=== PATIENT | female | born 1940 | race Caucasian/White ===

== ENCOUNTER → 2017-07-12 11:11 | Outpatient (CLI) | payer MEDICARE, SELFPAY ==
[2017-07-12 12:48] LABS: Anion Gap 10 (5-15); BUN 22 mg/dL (7-18); BUN/Creat Ratio 23.3 RATIO (10-20); Calcium,Total 8.6 mg/dL (8.5-10.1); Chloride 107 mmol/L (98-107); Cholesterol 217 mg/dL (200); Creatinine, Serum 0.95 mg/dL (0.55-1.02); EST Glomerular Filtration Rate 61 mL/min (>60); Est Glom Filt Rate - Afr Amer 74 mL/min (>60); Free T3 2.5 pg/mL (2.18-3.98); Glucose 98 mg/dL (74-106); High Density Lipoprotein 40 mg/dL; Potassium 4.3 mmol/L (3.5-5.1); Sodium Level 141 mmol/L (136-145); T4 Total, Thyroxin 9.8 ug/dL (4.8-13.9); Thyroid Stim Hormone (TSH) 0.33 uIU/mL (0.358-3.74); Triglycerides 151 mg/dL; Very Low Density Lipoprotein 30 mg/dL (5-40)
== END ==
PROVIDERS: Family Provider Family Medicine; PCP Family Medicine; Visit Provider Family Medicine
DX: I10 Essential (primary) hypertension (principal); E03.9 Hypothyroidism, unspecified
CPT/HCPCS: 36415; 80048; 80061; 84436; 84443; 84481

== ENCOUNTER → 2017-07-18 11:46 | Outpatient (CLI) | payer MEDICARE, SELFPAY ==
--- NOTE | 2017-07-18 11:53 | RAD_ITS ---
XR Abdomen W/ Decub and/or Erect Views INDICATION: abd pain COMPARISON: None TECHNIQUE: Supine and upright views of the abdomen FINDINGS: There is mixed with fecal material is seen throughout the colon and rectum. No significantly distended air-filled small bowel loops is seen to suggest obstruction. No air-fluid levels on the upright view. Lung bases are clear. RAD/Abd Inc Decub and/or Erect IMPRESSION: Nonobstructive bowel gas pattern at 2120 Reported and signed by: Shannon Lai MD Electronically Signed: Shannon Lai MD at 20:19 EST Tel , Service support ,
== END ==
PROVIDERS: Family Provider Family Medicine; PCP Family Medicine; Visit Provider Family Medicine
DX: R10.9 Unspecified abdominal pain (principal)
CPT/HCPCS: 74019

== ENCOUNTER → 2017-08-28 08:07 | Outpatient (CLI) | payer MEDICARE, SELFPAY ==
--- NOTE | 2017-08-28 08:10 | RAD_ITS ---
STUDY: X-RAY - ESOPHAGUS (BARIUM SWALLOW) WITH FLUOROSCOPY REASON FOR EXAM: Female, 76 years old. Dysphagia for solids. TECHNIQUE: 21 view(s) of the esophagus were obtained following swallowing of barium. FLUOROSCOPY TIME (if supplied): (0:20) minutes/seconds COMPARISON: None. FINDINGS: There is no demonstrated esophageal foreign body. There is no demonstrated stricture or mucosal abnormality. Normal gastroesophageal junction, without a demonstrated hiatal hernia. The patient ingest a 12 mm tablet of barium without any difficulty. Normal visualized aortic arch and descending thoracic aorta. Normal visualized pulmonary parenchyma. Normal visualized osseous structures of the thorax. RAD/Esophagus Only IMPRESSION: Normal plain film x-ray examination (barium swallow) of the esophagus. Electronically Signed: Minh May MD at 10:24 EDT Tel [phone], Service support ,
== END ==
PROVIDERS: Family Provider Family Medicine; PCP Family Medicine; Visit Provider Internal Medicine Gastroenterology
DX: R13.10 Dysphagia, unspecified (principal)
CPT/HCPCS: 74220

== ENCOUNTER → 2018-01-10 10:28 | Outpatient (CLI) | payer MEDICARE, SELFPAY ==
[2018-01-10 12:30] LABS: Anion Gap 9 (5-15); BUN 23 mg/dL (7-18); BUN/Creat Ratio 19.5 RATIO (10-20); Calcium,Total 8.6 mg/dL (8.5-10.1); Chloride 108 mmol/L (98-107); Cholesterol 178 mg/dL (200); Creatinine, Serum 1.18 mg/dL (0.55-1.02); EST Glomerular Filtration Rate 47 mL/min (>60); Est Glom Filt Rate - Afr Amer 57 mL/min (>60); Glucose 91 mg/dL (74-106); High Density Lipoprotein 33 mg/dL; Potassium 4.5 mmol/L (3.5-5.1); Sodium Level 140 mmol/L (136-145); Thyroid Stim Hormone (TSH) 1.46 uIU/mL (0.358-3.74); Triglycerides 182 mg/dL; Very Low Density Lipoprotein 36 mg/dL (5-40)
== END ==
PROVIDERS: Family Provider Family Medicine; PCP Family Medicine; Visit Provider Family Medicine
DX: I10 Essential (primary) hypertension (principal); E03.9 Hypothyroidism, unspecified
CPT/HCPCS: 36415; 80048; 80061; 84443

== ENCOUNTER → 2018-02-18 06:20 | Outpatient (CLI) | payer MEDICARE, SELFPAY ==
--- NOTE | 2018-02-18 12:24 | STRESSREP ---
Stress Test Report Exercise myocardial perfusion stress test. 77 year old lady with a history of chest pain. Medications losartan Coumadin Zantac. Stress protocol: Resting EKG demonstrates normal sinus rhythm with a rate of 88 bpm normal intervals and noted resting blood pressure is 148/82 mmHg. The patient exercised according to regular Mario protocol for total duration of 3 minutes and 29 seconds the maximum heart rate attained was 157 bpm which was 110% of maximum predicted heart rate the maximum workload was 5.1 metabolic equivalents. The patient maintained sinus rhythm throughout the recording. At rest there were no ST or T-wave changes noted suggest ischemia at peak exercise upsloping ST changes only were noted with no meet the criteria for ischemia. The resting blood pressure is 148/82 with a peak blood pressure 184/84. No clinical angina was noted the test was terminated due to shortness of breath. Myocardial perfusion protocol. 11.0 mCi of technetium 99m sestamibi was injected at rest. The patient exercised for 3-1/2 minutes attaining 5.1 minutes. At peak exercise 33.0 mCi of technetium 99m sestamibi was injected stress images were obtained stress and rest images were reconstructed and compared in the short axis vertical long horizontal long axis. Gated images were also obtained pre- Perfusion SPECT analysis: Review of the stress images demonstrate normal uptake of tracer noted in all areas of the myocardium. The resting images similarly demonstrate normal uptake of tracer noted in all areas of the myocardium. No obvious areas of reversibility are noted suggest ischemia and no previous infarct is noted. Gated SPECT analysis: The gated ejection fraction is noted to be 69%. No wall motion abnormalities are noted. Conclusion: Normal exercise myocardial perfusion stress test at a low to moderate workload. Preserved ejection fraction The low exercise capacity can affect detection of ischemia.
== END ==
PROVIDERS: Family Provider Family Medicine; PCP Family Medicine; Visit Provider Family Medicine
DX: R06.02 Shortness of breath (principal)
CPT/HCPCS: 78452; 93017; A9500; A4216

== ENCOUNTER → 2018-03-28 12:22 | Outpatient (CLI) | payer MEDICARE, SELFPAY ==
[2018-03-28 14:19] LABS: Prothrombin Time (Protime)PT. 22.3 SECONDS (11.7-14.9)
[2018-03-28 14:24] LABS: Hematocrit 24.8 % (37-47); Hemoglobin 6.7 g/dl (12.0-15.0); Mean Corpuscular Volume 63.1 fL (81-99); Mean Platelet Vol. 9.3 fl (6.2-12.0); Platelet Count 417 K/mm3 (150-450); RBC Distribution Width CV 21.2 % (11.6-14.6); RBC Distribution Width SD 47.4 fl (35.1-43.9); Red Blood Count 3.93 M/mm3 (4.2-5.4); White Blood Count 5.9 K/mm3 (4.4-11.0)
[2018-03-28 14:26] LABS: Anion Gap 6 (5-15); BUN 28 mg/dL (7-18); Calcium,Total 8.4 mg/dL (8.5-10.1); Chloride 107 mmol/L (98-107); Creatinine, Serum 1.12 mg/dL (0.55-1.02); EST Glomerular Filtration Rate 50 mL/min (>60); Est Glom Filt Rate - Afr Amer 61 mL/min (>60); Glucose 115 mg/dL (74-106); Potassium 4.4 mmol/L (3.5-5.1); Sodium Level 138 mmol/L (136-145)
[2018-03-28 14:37] LABS: Differential Comment SCANNED; Scan Indicated on CBC? Y/N YES- FLAGS NOTED
== END ==
PROVIDERS: Family Provider Family Medicine; PCP Family Medicine; Visit Provider Family Medicine
DX: R53.83 Other fatigue (principal)
CPT/HCPCS: 36415; 80048; 85027; 85610

== ENCOUNTER 2018-03-28 16:35 | Observation (INO) | payer MEDICARE, SELFPAY ==
[2018-03-28 16:36] VITALS: BP 165/93; PULSE 97; RESP 14; TEMP 36.6; O2SAT 98; BMI 28.5
--- NOTE | 2018-03-28 16:52 | EKG12_ITS ---
Test Reason : ABN LABS Blood Pressure : / mmHG Vent. Rate : 087 BPM Atrial Rate : 087 BPM P-R Int : 160 ms QRS Dur : 070 ms QT Int : 386 ms P-R-T Axes : 050 024 036 degrees QTc Int : 464 ms Normal sinus rhythm Low voltage QRS Borderline ECG Confirmed by HUGH BOSWELL, GALILEA ([id number]), editor news RADHA GARCIA ([id number]) on 04/01/2018 3:55:55 PM Referred By: MANAN Confirmed By:GALILEA REESE MD
[2018-03-28 17:13] LABS: Hematocrit 24.5 % (37-47)
[2018-03-28 17:15] LABS: Hemoglobin 6.7 g/dl (12.0-15.0)
[2018-03-28 17:43] LABS: Ferritin 3 ng/mL (8-252); Iron 22 ug/dL (50-170); Iron Binding Capacity,Total 509 ug/dL (250-450)
[2018-03-28 17:49] LABS: Vitamin B12 201 pg/mL (211-911)
--- NOTE | 2018-03-28 18:01 | HP.PCM_ITS ---
Problem List (1) Iron deficiency anemia Status: Chronic (2) SOB (shortness of breath) Status: Acute (3) GERD (gastroesophageal reflux disease) Status: Chronic (4) Hypothyroidism Status: Chronic (5) DVT (deep venous thrombosis) Status: Chronic (6) IBS (irritable bowel syndrome) Status: Chronic History of Present Illness Date of Admission: 03/28/18 Chief Complaint: SOB/STEIN The patient is a 77 year old F with a PMH as above presenting with SOB and STEIN worsening since the end of summer. Per her and the family, she is usually getting 10,000 steps a day, but these last few weeks, she is getting winded just by making the bed. She saw her PCP and he ordered a stress test which was normal, but she had a low to moderate work-load which could skew results. She followed-up with her PCP again and a CBC demonstrated an anemia of 6.7 and iron deficiency. She was sent to the ER for admission and transfusion. In the Er she was typ and crossed for tranfusion of 2 UPRBC. Her Fecal occult in the ER was positive and she state that she has had episodes of darks stool in the past. She had a colonoscopy 5 years ago which she had one polypectomy and an EGD a year ago to evaluate her Barretts. Past Medical History Past Medical History (Chronic Problems): Chronic Problems Iron deficiency anemia (Chronic) GERD (gastroesophageal reflux disease) (Chronic) Hypothyroidism (Chronic) DVT (deep venous thrombosis) (Chronic) IBS (irritable bowel syndrome) (Chronic) Allergies No Known Allergies Allergy (Verified 03/28/18 16:40) Home Medications: Ambulatory Orders Medication Instructions Recorded Acetaminophen [Mapap] 500 mg PO PRN PRN 03/28/18 Dicyclomine HCl 20 mg PO TID PRN PRN 03/28/18 Ferrous Sulfate 325 mg PO TID 03/28/18 Lansoprazole 30 mg PO DAILY 03/28/18 Levothyroxine Sodium 75 mcg PO DAILY 03/28/18 Lorazepam [Ativan] 1 mg PO BID 03/28/18 Losartan Potassium 50 mg PO DAILY 03/28/18 Prednisone 40 mg PO DAILY 03/28/18 Ranitidine HCl 75 mg PO DAILY 03/28/18 Warfarin Sodium 2 mg PO DAILY 03/28/18 Surgical History: hysterectomy, - - EGD, ganglion cyst removal, basal cell exci valerie Smoking Status: Never smoker Alcohol: None Drugs: None - *Family History Maternal History Items: Diabetes, Heart Disease, Hypertension Paternal History Items: Heart Disease, Hypertension Review of Systems Constitutional: Denies: Chills, Fever, Weight Change HEENT: Denies: Head Aches, Sinus Congestion, Sinus Drainage Cardiovascular: Denies: Chest Pain, Palpitations Respiratory: Reports: Shortness of breath at rest, Shortness of breath upon exertion. Denies: Cough, Sputum production Gastrointestinal: Denies: Abdominal Pain, Nausea, Vomiting Genitourinary: Denies: Dysuria Musculoskeletal: Denies: Joint Pain, Joint Tenderness Skin: Denies: Rash, Wounds Neurological: Denies: Numbness, Tingling, Focal weakness Psychiatric: Denies: Anxiety, Depression Hematologic/ Lymphatic: Denies: Easy Bruising, Easy Bleeding VTE Information - Inpt Only VTE Present on Admission: No Patient Problems: Active and Suspected Problems SOB (shortness of breath) (Acute) - Physical Exam General: Alert, Oriented x3, Cooperative, No apparent distress HEENT: Atraumatic, PERRLA, EOMI, Normocephalic Oral: Moist Mucosa Neck: Supple, No JVD Lungs: Clear to auscultation, Normal air movement, No rhonchi, No wheeze, No rales Cardiovascular: Regular rate, Regular Rhythm, Normal S1, Normal S2, No murmurs Abdomen: Soft, Non Tender, Non-Distended, No Hepato-splenomegaly Extremities: No edema, Capillary Refill Less than 3 Seconds Skin: No rashes, No breakdown Musculoskeletal: No Tenderness to Palpation of Joints or Extremities Neurological: Neuro grossly intact, Sensory exam intact to light touch and pain Psych/Mental Status: Normal Affect, Appropriate Vital Signs Temp Pulse Resp BP Pulse Ox 97.8 F 97 14 165/93 H 98 03/28/18 16:36 03/28/18 16:36 03/28/18 16:36 03/28/18 16:36 03/28/18 16:36 Oxygen Delivery Method Room Air Weight: 155 lb 13.869 oz Body Mass Index (BMI) 28.5 Laboratory Tests Past 24 Hrs 03/28/18 03/28/18 03/28/18 17:05 17:05 17:05 Hgb 6.7 L Hct 24.5 L Iron 22 L TIBC 509 H Ferritin 3 L Vitamin B12 201 L Folate 15.50 Assessment/Plan All Active Problems SOB (shortness of breath) (Acute) 1. Iron deficiency anemia/B12 deficiency/Positive fecal occult - Will trasnfuse 2 U PRBCs for an H/H 6.7, there is no baseline in the system - C/w home iron therapy, will add vitamin C to her regimen because of her PPI - Her B12 is also low, so will add replacement for that as well, will proceed with oral since she is asymptomatic - CBC in the am for better characterization of her anemia - C/s to General surgery for EGD 2. GERD - Stable, h/o gastritis on her EGD - C/w PPI IV BID 3. Hypothyroidism - stable per her report - c/w synthroid 4. H/o DVT - She had a DVT in 1990 and was told that she needed to remain on coumadin the rest of her life - Will DC coumadin and will not restart unless she and her PCP decide to - She states that she has never had a DVT after that first one and no one in her family has a clotting disorder - It is very reasonable to to hold her anticoagulation and not resume unless she has a recurrent DVT 5. IBS predominantly diarrhea - c/w bentyl which seems to provide her with some control DVT: SCDs Code Visit OBSV E&M: 29741 Initial observation care L3
[2018-03-28 18:13] VITALS: BMI 28.5
[2018-03-28 18:36] VITALS: BMI 28.4
[2018-03-28 18:38] VITALS: BP 142/59; PULSE 91; RESP 16; TEMP 36.7; O2SAT 98
--- NOTE | 2018-03-28 18:59 | ED.VISSUMM ---
- ER Visit Summary Date of Service: 03/28/18 Chief Complaint: Abnormal labs History of Present Illness: The patient is a 77 F who states that she went to her doctor today and was found to have a hemoglobin of 6.7. She states that earlier this year in the summer she began to experience shortness of breath. Her family states that she had been doing 10,000 steps measured on a fit bit but now his shortness of breath even with making a bed. She had a stress test a few days ago. She lasted 3-1/2 minutes but otherwise was negative. He does not wear oxygen. She has a history of gastritis and up until 3 days ago was on a PPI but stopped that because she read a combined iron. Her MCV on blood work is 63.1. BUN is 28 creatinine 1.12. She has not had any black or bloody stools. She denies any tarry stools. Endoscopy 1 year ago Physical Examination: Afebrile vital signs stable Gen: Well-nourished well-developed Head: Normocephalic atraumatic Eyes: Perrl EOMI ENT: TMs clear no rhinorrhea moist mucous membranes Neck: Supple no lymphadenopathy no JVD nontender CVS: Regular rate rhythm no murmurs normal S1-S2 Respiratory: No distress clear to auscultation bilaterally chest nontender Abdomen: Soft nontender nondistended normal bowel sounds no masses Rectal: Light brown stool Back: Nontender Extremity: Nontender no edema Skin: Normal color no rash Neuro: alert orientated ?3 CN II-XII intact normal strength sensation reflexes gait cerebellar Psych: Normal affect normal mood Test Results: Iron studies were added. EKG is a sinus rhythm at a rate of 87. Stool on Hemoccult was positive Emergency Department Course and Treatment: Plan is for admission and transfusion. Impression: 1. Anemia requiring transfusion 2. Iron deficiency This note was generated with [employer] dictation software. It may contain incorrect words, spelling, and punctuation that were not noted in review of the chart prior to signing ED Disposition - Plan for ED Patient: Disposition: Acute Care Hospital [facility] Chief Complaint: Abn Labs
[2018-03-28] MEDS: Ferrous Sulfate 325 MG Tablet PO (21:25)
[2018-03-28] MEDS: LORazepam 1 MG Tablet PO (21:25)
[2018-03-28] MEDS: 0.9% NaCl Peripheral Flush Adult/Peds IV (21:27)
[2018-03-28 22:38] VITALS: BP 137/60; PULSE 96; RESP 18; TEMP 36.8; O2SAT 96
[2018-03-28 22:53] VITALS: BP 130/39; PULSE 86; RESP 16; TEMP 36.8; O2SAT 97
[2018-03-28 23:53] VITALS: BP 141/77; PULSE 97; RESP 18; TEMP 36.7; O2SAT 98
[2018-03-28 23:58] VITALS: BP 141/77; PULSE 97; RESP 18; TEMP 36.7; O2SAT 98
[2018-03-29] VITALS (12 sets, daily range): BP systolic 124–154; BP diastolic 53–71; PULSE 76–98; RESP 16–20; TEMP 36.6–36.9; O2SAT 95–99
[2018-03-29] MEDS: Levothyroxine 75 MCG Tablet PO (06:33)
[2018-03-29] MEDS: 0.9% NaCl Peripheral Flush Adult/Peds IV ×2 (06:33→09:09)
--- NOTE | 2018-03-29 08:31 | PCM.PN.HOSP ---
Patient Problems: Active and Suspected Problems Acute blood loss anemia (Acute) Heme positive stool (Acute) Subjective: No new complaints. Has not really exerted herself, but no shortness of breath. Never had any melena, hematochezia. Vitals/I&O's: Vital Signs Temp Pulse Resp BP Pulse Ox 36.9 C 79 16 132/53 H 97 03/29/18 05:08 03/29/18 05:08 03/29/18 05:08 03/29/18 05:08 03/29/18 06:49 Oxygen Flow Rate (L/min) 2 Oxygen Delivery Method Nasal Cannula Weight: 68.2 kg Body Mass Index (BMI) 28.4 Intake and Output for Last 24 Hours 03/27/18 03/28/18 03/29/18 23:59 23:59 23:59 Intake Total 150 / 150 1050 / 1050 Output Total 100 / 100 800 / 800 Balance 50 / 50 250 / 250 General: Alert, No apparent distress HEENT: Atraumatic, Normocephalic Oral: Moist Mucosa, No Gingival or Mucosal Lesions/ Ulcerations Neck: No Nodes, Thyroid Normal Size and Texture Lungs: Clear to auscultation, No rhonchi, No wheeze Cardiovascular: Regular rate, Regular Rhythm, Normal S1, Normal S2 Abdomen: Bowel Sounds Present, Soft, Non Tender, Non-Distended, No Hepato-splenomegaly Extremities: No edema, No Calf Tenderness Skin: No rashes, No breakdown Psych/Mental Status: Normal Affect, Appropriate Microbiology Past 72 Hours 03/28/18 17:32 Stool Stool Occult Blood (LYNDSAY) - Final Occult Blood Positive Laboratory Results 03/28/18 17:05: Vitamin B12 201 L 03/28/18 17:05: Iron 22 L, TIBC 509 H, Ferritin 3 L, Folate 15.50 03/28/18 17:05: Hgb 6.7 L, Hct 24.5 L 03/28/18 19:28: Blood Type A NEGATIVE, Antibody Screen NEGATIVE, Crossmatch See Detail 03/29/18 08:10: WBC Pending, RBC Pending, Hgb Pending, Hct Pending, MCV Pending, MCH Pending, MCHC Pending, RDW Pending, RDW Differential Pending, Plt Count Pending, Neut % (Auto) Pending, Absolute Neuts (auto) Pending, Total Counted Pending 03/29/18 08:10: PT Pending, INR Pending 03/29/18 08:10: Sodium Pending, Potassium Pending, Chloride Pending, Carbon Dioxide Pending, Anion Gap Pending, BUN Pending, Creatinine Pending, Est GFR (MDRD) Af Amer Pending, Est GFR (MDRD) Non-Af Pending, BUN/Creatinine Ratio Pending, Glucose Pending, Calcium Pending Current Medications Acetaminophen (Tylenol) 500 mg PO Q4H PRN PRN PRN Reason: PAIN Ascorbic [facility] ([facility]itamin [facility]) [facility] Cyanocobalamin (Vitamin B12) 1,000 mcg PO DAILY@0800 [facility] Dicyclomine HCl (Bentyl) 20 mg PO TID PRN PRN PRN Reason: Irritable Bowel Syndrome Famotidine (Pepcid) 10 mg PO DAILY [facility] Ferrous Sulfate (Ferrous Sulfate) 325 mg PO TIDCM [facility] Last Admin: 03/28/18 21:25 Dose: 325 mg Pantoprazole Sodium 40 mg/ (Sodium Chloride) 110 mls @ 330 mls/hr IV Q12 [facility] Last Admin: 03/28/18 21:25 Dose: 330 mls/hr Influenza Virus Vaccine Quadrival (Fluarix/Fluzone) 0.5 ml IM .ONCE ONE Stop: 03/29/18 10:01 Levothyroxine Sodium (Synthroid) 75 mcg PO DAILY@0600 [facility] Last Admin: 03/29/18 06:33 Dose: 75 mcg Lorazepam (Ativan) 1 mg PO BID [facility] Last Admin: 03/28/18 21:25 Dose: 1 mg Losartan Potassium (Cozaar) 50 mg PO DAILY [facility] Magnesium Hydroxide (Milk Of Magnesia) 30 ml PO DAILY PRN PRN PRN Reason: Constipation Sodium Chloride () 5 - 30 ml IV UD PRN PRN Reason: SALINE FLUSH Last Admin: 03/29/18 06:33 Dose: 10 ml Medical Necessity - Tobacco Use Smoking Status: Never smoker Tobacco Use: Cigarettes Assessment/Plan All Active Problems Acute blood loss anemia (Acute) Heme positive stool (Acute) 1. symptomatic anemia/acute blood loss anemia unknown baseline, but given accelerating symptoms, likely due to gradual blood loss s/p transfusion of 2 units PRBCs (follow up CBC pending) 2. Heme positive stools patient denies melena, hematochezia presumably the anemia is due to GI source complicated by coumadin DW Dr. Rowan, pt can follow up in their office next week for follow up and endoscopy. (patient ate today, so no endoscopy, nor non-urgent endoscopy over the weekend.) suspect a gradual process 3. VTE per patient's description, she had an extensive, unprovoked DVT in RLE with PE. No Phlegmasia culen dolens, nor life threatening PE. Apparently, had a hypercoagulable work up later that showed Factor V Leiden mutation. Coumadin on hold given above, and would continue to hold for at least another 2 weeks. Recommend follow up with hematology to review (pt states she never did see a supervisor dyer) 4. DVT proph: SCDs. Greater than 35 minutes of which greater than 50% of the time was discussing the patient's anemia and potential etiology and plan. Discussing with general surgery as well about an outpatient plan. Code Visit Inpatient E&M: 25234 Subs Hosp L3
--- NOTE | 2018-03-29 08:35 | PN_ITS ---
Patient Problems: Active and Suspected Problems Acute blood loss anemia (Acute) Heme positive stool (Acute) Subjective: No new complaints. Has not really exerted herself, but no shortness of breath. Never had any melena, hematochezia. Vitals/I&O's: Vital Signs Temp Pulse Resp BP Pulse Ox 36.9 C 79 16 132/53 H 97 03/29/18 05:08 03/29/18 05:08 03/29/18 05:08 03/29/18 05:08 03/29/18 06:49 Oxygen Flow Rate (L/min) 2 Oxygen Delivery Method Nasal Cannula Weight: 68.2 kg Body Mass Index (BMI) 28.4 Intake and Output for Last 24 Hours 03/27/18 03/28/18 03/29/18 23:59 23:59 23:59 Intake Total 150 / 150 1050 / 1050 Output Total 100 / 100 800 / 800 Balance 50 / 50 250 / 250 General: Alert, No apparent distress HEENT: Atraumatic, Normocephalic Oral: Moist Mucosa, No Gingival or Mucosal Lesions/ Ulcerations Neck: No Nodes, Thyroid Normal Size and Texture Lungs: Clear to auscultation, No rhonchi, No wheeze Cardiovascular: Regular rate, Regular Rhythm, Normal S1, Normal S2 Abdomen: Bowel Sounds Present, Soft, Non Tender, Non-Distended, No Hepato- splenomegaly Extremities: No edema, No Calf Tenderness Skin: No rashes, No breakdown Psych/Mental Status: Normal Affect, Appropriate Microbiology Past 72 Hours 03/28/18 17:32 Stool Stool Occult Blood (LYNDSAY) - Final Occult Blood Positive Laboratory Results 03/28/18 17:05: Vitamin B12 201 L 03/28/18 17:05: Iron 22 L, TIBC 509 H, Ferritin 3 L, Folate 15.50 03/28/18 17:05: Hgb 6.7 L, Hct 24.5 L 03/28/18 19:28: Blood Type A NEGATIVE, Antibody Screen NEGATIVE, Crossmatch See Detail 03/29/18 08:10: WBC Pending, RBC Pending, Hgb Pending, Hct Pending, MCV Pending, MCH Pending, MCHC Pending, RDW Pending, RDW Differential Pending, Plt Count Pending, Neut % (Auto) Pending, Absolute Neuts (auto) Pending, Total Counted Pending 03/29/18 08:10: PT Pending, INR Pending 03/29/18 08:10: Sodium Pending, Potassium Pending, Chloride Pending, Carbon Dioxide Pending, Anion Gap Pending, BUN Pending, Creatinine Pending, Est GFR (MDRD) Af Amer Pending, Est GFR (MDRD) Non-Af Pending, BUN/Creatinine Ratio Pending, Glucose Pending, Calcium Pending Current Medications Acetaminophen (Tylenol) 500 mg PO Q4H PRN PRN PRN Reason: PAIN Ascorbic [facility] ([facility]itamin [facility]) [facility] Cyanocobalamin (Vitamin B12) 1,000 mcg PO DAILY@0800 [facility] Dicyclomine HCl (Bentyl) 20 mg PO TID PRN PRN PRN Reason: Irritable Bowel Syndrome Famotidine (Pepcid) 10 mg PO DAILY [facility] Ferrous Sulfate (Ferrous Sulfate) 325 mg PO TIDCM [facility] Last Admin: 03/28/18 21:25 Dose: 325 mg Pantoprazole Sodium 40 mg/ (Sodium Chloride) 110 mls @ 330 mls/hr IV Q12 [facility] Last Admin: 03/28/18 21:25 Dose: 330 mls/hr Influenza Virus Vaccine Quadrival (Fluarix/Fluzone) 0.5 ml IM .ONCE ONE Stop: 03/29/18 10:01 Levothyroxine Sodium (Synthroid) 75 mcg PO DAILY@0600 [facility] Last Admin: 03/29/18 06:33 Dose: 75 mcg Lorazepam (Ativan) 1 mg PO BID [facility] Last Admin: 03/28/18 21:25 Dose: 1 mg Losartan Potassium (Cozaar) 50 mg PO DAILY [facility] Magnesium Hydroxide (Milk Of Magnesia) 30 ml PO DAILY PRN PRN PRN Reason: Constipation Sodium Chloride () 5 - 30 ml IV UD PRN PRN Reason: SALINE FLUSH Last Admin: 03/29/18 06:33 Dose: 10 ml Medical Necessity - Tobacco Use Smoking Status: Never smoker Tobacco Use: Cigarettes Assessment/Plan All Active Problems Acute blood loss anemia (Acute) Heme positive stool (Acute) 1. symptomatic anemia/acute blood loss anemia * unknown baseline, but given accelerating symptoms, likely due to gradual blood loss * s/p transfusion of 2 units PRBCs (follow up CBC pending) 2. Heme positive stools * patient denies melena, hematochezia * presumably the anemia is due to GI source complicated by coumadin * DW Dr. Rowan, pt can follow up in their office next week for follow up and endoscopy. (patient ate today, so no endoscopy, nor non-urgent endoscopy over the weekend.) * suspect a gradual process 3. VTE * per patient's description, she had an extensive, unprovoked DVT in RLE with PE. No Phlegmasia culen dolens, nor life threatening PE. Apparently, had a hypercoagulable work up later that showed Factor V Leiden mutation. * Coumadin on hold given above, and would continue to hold for at least another 2 weeks. * Recommend follow up with hematology to review (pt states she never did see a lead manufacturing engineering tech) 4. DVT proph: SCDs. Greater than 35 minutes of which greater than 50% of the time was discussing the patient's anemia and potential etiology and plan. Discussing with general surgery as well about an outpatient plan. Code Visit Inpatient E&M: 36366 Subs Hosp L3
[2018-03-29 08:39] LABS: International Normalized Ratio 1.7; Prothrombin Time (Protime)PT. 19.7 SECONDS (11.7-14.9)
[2018-03-29 08:45] LABS: Anion Gap 9 (5-15); BUN 19 mg/dL (7-18); BUN/Creat Ratio 17.3 RATIO (10-20); Calcium,Total 8.2 mg/dL (8.5-10.1); Chloride 110 mmol/L (98-107); EST Glomerular Filtration Rate 51 mL/min (>60); Est Glom Filt Rate - Afr Amer 62 mL/min (>60); Estimated Creatinine Clearance 31.81 ml/min; Glucose 131 mg/dL (74-106); Sodium Level 141 mmol/L (136-145)
[2018-03-29 08:48] LABS: Absolute Lymphocyte Count 1.39 X10^3/ul (0.83-4.51); Absolute Neutrophil Count 4.2 X10^3/uL (2.0-7.7); Basophil# 0.03 X10^3/uL; Basophil% 0.5 % (0-1); Eosinophil# 0.09 X10^3/uL; Eosinophils% 1.4 % (0-5); Hematocrit 31.5 % (37-47); Hemoglobin 9.4 g/dl (12.0-15.0); Lymphocyte # 1.39 X10^3/ul (4.0); Lymphocyte % 22.3 % (19-41); Mean Corp Hgb Conc 29.8 g/gl (32-36); Mean Corpuscular Hgb 20.4 pg (27.0-32.0); Mean Corpuscular Volume 68.3 fL (81-99); Mean Platelet Vol. 9.1 fl (6.2-12.0); Monocyte# 0.53 X10^3/uL; Monocyte% 8.5 % (0-10); Neutrophil # 4.17 X10^3/uL (2.7-7.7); Neutrophil % 66.8 % (47-70); Platelet Count 327 K/mm3 (150-450); RBC Distribution Width CV 25.3 % (11.6-14.6); RBC Distribution Width SD 61.5 fl (35.1-43.9); Red Blood Count 4.61 M/mm3 (4.2-5.4); White Blood Count 6.2 K/mm3 (4.4-11.0)
[2018-03-29 08:50] LABS: Differential Indicated SCAN CRITERIA MET; POSITIVE COUNT NO; POSITIVE DIFFERENTIAL NO; POSITIVE MORPHOLOGY YES
[2018-03-29] MEDS: LORazepam 1 MG Tablet PO (08:59)
[2018-03-29] MEDS: Ascorbic Acid 500 MG Tablet PO (08:59)
[2018-03-29] MEDS: Cyanocobalamin 500 MCG Tablet 1000 MCG PO (08:59)
[2018-03-29] MEDS: Famotidine 20 MG Tablet 10 MG PO (09:00)
[2018-03-29] MEDS: Losartan Potassium 50 MG Tablet PO (09:00)
[2018-03-29] MEDS: Ferrous Sulfate 325 MG Tablet PO (12:34)
--- NOTE | 2018-03-29 13:25 | CASEMGMT ---
RN CM Assessment. Intro role of CM to patient and her niece. Pt presented with anemia and iron deficiency. Transfusion during hospital stay. Demographics verified. PCP: Dr. Austin [facility] Prescription coverage: yes DME: none Living Arrangements: Lives independently, denies any dc concerns. States she drives and is able to f/u with physicians. DC PLAN: Home on discharge.
[2018-03-29 14:44] LABS: Absolute Lymphocyte Count 1.27 X10^3/ul (0.83-4.51); Absolute Neutrophil Count 4.1 X10^3/uL (2.0-7.7); Basophil# 0.02 X10^3/uL; Basophil% 0.3 % (0-1); Eosinophil# 0.07 X10^3/uL; Eosinophils% 1.1 % (0-5); Hematocrit 32.1 % (37-47); Hemoglobin 9.3 g/dl (12.0-15.0); Lymphocyte # 1.27 X10^3/ul (4.0); Lymphocyte % 20.7 % (19-41); Mean Corpuscular Hgb 20.2 pg (27.0-32.0); Mean Corpuscular Volume 69.6 fL (81-99); Mean Platelet Vol. 8.4 fl (6.2-12.0); Monocyte# 0.63 X10^3/uL; Monocyte% 10.3 % (0-10); Neutrophil # 4.13 X10^3/uL (2.7-7.7); Neutrophil % 67.3 % (47-70); Platelet Count 290 K/mm3 (150-450); RBC Distribution Width CV 24.7 % (11.6-14.6); RBC Distribution Width SD 62.6 fl (35.1-43.9); Red Blood Count 4.61 M/mm3 (4.2-5.4); White Blood Count 6.1 K/mm3 (4.4-11.0)
[2018-03-29 14:45] LABS: Differential Indicated SCAN CRITERIA MET; POSITIVE COUNT NO; POSITIVE DIFFERENTIAL NO; POSITIVE MORPHOLOGY YES
--- NOTE | 2018-03-29 14:57 | DCINST_ITS ---
- Discharge Diagnoses Current Active Problems: Current Active and Chronic Problems Heme positive stool (Acute) Acute blood loss anemia (Acute) Iron deficiency anemia (Chronic) GERD (gastroesophageal reflux disease) (Chronic) Hypothyroidism (Chronic) DVT (deep venous thrombosis) (Chronic) IBS (irritable bowel syndrome) (Chronic) You will use the following diet at home:: No restrictions Your food should be the consistency of: Regular Your liquids should be the consistency of: Regular/Thin Discharge Activity: Return to Normal Activity Call your doctor if you observe: Fainting spells, - - rectal bleeding. dark tarry stools. Allergies/Adverse Reactions: Allergies No Known Allergies Allergy (Verified 03/28/18 16:40) Medications to take at Discharge Acetaminophen [Mapap] 500 mg PO PRN PRN 03/28/18 Dicyclomine HCl 20 mg PO TID PRN PRN 03/28/18 Ferrous Sulfate 325 mg PO TID 03/28/18 Lansoprazole 30 mg PO DAILY 03/28/18 Levothyroxine Sodium 75 mcg PO DAILY 03/28/18 Lorazepam [Ativan] 1 mg PO BID 03/28/18 Losartan Potassium 50 mg PO DAILY 03/28/18 Ranitidine HCl 75 mg PO DAILY 03/28/18 Orders to be completed after discharge: CBC W/Diff, Automated Time Frame: 1 Week, Location: Laboratory CBC W/Diff, Automated Time Frame: 2 Weeks, Location: Laboratory Primary Care Physician: Edgar Austin MD [Primary Care Provider] - Test Results: Test results from this visit will be discussed in further detail at your follow- up appointment, if applicable. Please Follow Up With: Shawnee Cid MD When: next week Proposed Discharge Date: 03/29/18
--- NOTE | 2018-03-29 14:57 | NURSING ---
Texted Dr. Mercado at this time with results of [address] Mercado stated that he would discharge pt.
--- NOTE | 2018-03-29 15:01 | DS.PCM_ITS ---
Discharge Date and Diagnosis - Problem List Patient Problems: Active and Suspected Problems Heme positive stool (Acute) Acute blood loss anemia (Acute) Date of Admission: 03/28/18 Date of Discharge: 03/29/18 - Primary Discharge Diagnosis Active and Suspected Problems Heme positive stool (Acute) Acute blood loss anemia (Acute) - Secondary Discharge Diagnosis Chronic Problems Iron deficiency anemia (Chronic) GERD (gastroesophageal reflux disease) (Chronic) Hypothyroidism (Chronic) DVT (deep venous thrombosis) (Chronic) IBS (irritable bowel syndrome) (Chronic) Hospital Course and Treatment Operations: None Procedures: None Summary of Care Provided: The patient is a 77 year old F presents with symptomatic anemia with a hemoglobin of 6.7. Patient is noticed some increasing fatigue. Previously, patient is very active walking around 10,000 steps per day. Patient was sent to the emergency room for further evaluation. Patient was heme positive but patient denies any hematochezia nor melena. Patient was transfused 2 units packed red blood cells and her hemoglobin was 9.4. Subsequent lab work several hours later showed hemoglobin at 9.3, essentially the same. Is my feeling, that this is been more of a chronic smoldering blood loss the patient is experiencing. Presumably GI source comp gated by the fact the patient is on Coumadin. Did discuss with general surgery, Dr. Holland, who said that she would see the patient as outpatient. Patient previously has seen Dr. Coulter but would be interested by Dr. nava but that it will make determination as to who they will follow-up with next. Advised that patient will need to be off of Coumadin for the time being and I did inform the Coumadin is not causing bleeding but making the bleeding easier. Patient has already been started on ferrous sulfate as outpatient and will continue with that. I have instructed patient to get some outpatient follow-up lab work to see if she may require further transfusions as outpatient and if she were, over that she could be diverted to going to the infusion center. Patient also does have a history of DVT that was pretty significant back in 1990. Patient was tested positive for factor V Leiden mutation and in 2016 to which why it was still continued. I recommend patient follow-up with hematology to see if if that should be continued or if possibly patient could be put onto 1 of the newer novel anticoagulants instead of Coumadin. [] Patient Problems: Active and Suspected Problems Heme positive stool (Acute) Acute blood loss anemia (Acute) - Physical Exam Vital Signs Temp Pulse Resp BP Pulse Ox 36.6 C 76 20 H 137/65 H 96 03/29/18 14:00 03/29/18 14:00 03/29/18 14:00 03/29/18 14:00 03/29/18 14:00 Oxygen Flow Rate (L/min) 2 Oxygen Delivery Method Room Air Weight: 68.2 kg Body Mass Index (BMI) 28.4 Intake and Output for Last 24 Hours 03/27/18 03/28/18 03/29/18 23:59 23:59 23:59 Intake Total 150 / 150 1050 / 1050 Output Total 100 / 100 800 / 800 Balance 50 / 50 250 / 250 Microbiology Past 72 Hours 03/28/18 17:32 Stool Occult Blood (LYNDSAY) - Final Stool Occult Blood Positive Laboratory Tests Past 24 Hrs 03/28/18 03/28/18 03/28/18 17:05 17:05 17:05 WBC RBC Hgb 6.7 L Hct 24.5 L MCV MCH MCHC RDW RDW Differential Plt Count MPV Immature Gran % (Auto) Neut % (Auto) Lymph % (Auto) [place] % (Auto) Eos % (Auto) Baso % (Auto) Absolute Neuts (auto) Absolute Lymphs (auto) Total Counted Differential Comment PT INR Sodium Potassium Chloride Carbon Dioxide Anion Gap BUN Creatinine Estim Creat Clear Calc Est GFR (MDRD) Af Amer Est GFR (MDRD) Non-Af BUN/Creatinine Ratio Glucose Calcium Iron 22 L TIBC 509 H Ferritin 3 L Vitamin B12 201 L Folate 15.50 Blood Type Antibody Screen Crossmatch 03/28/18 03/29/18 03/29/18 19:28 08:10 08:10 WBC 6.2 RBC 4.61 Hgb 9.4 L Hct 31.5 L MCV 68.3 L MCH 20.4 L MCHC 29.8 L RDW 25.3 H RDW Differential 61.5 H Plt Count 327 MPV 9.1 Immature Gran % (Auto) 0.500 Neut % (Auto) 66.8 Lymph % (Auto) 22.3 [place] % (Auto) 8.5 Eos % (Auto) 1.4 Baso % (Auto) 0.5 Absolute Neuts (auto) 4.2 Absolute Lymphs (auto) 1.39 Total Counted Not Reportable Differential Comment COMMENT PT 19.7 H INR 1.7 Sodium Potassium Chloride Carbon Dioxide Anion Gap BUN Creatinine Estim Creat Clear Calc Est GFR (MDRD) Af Amer Est GFR (MDRD) Non-Af BUN/Creatinine Ratio Glucose Calcium Iron TIBC Ferritin Vitamin B12 Folate Blood Type A NEGATIVE Antibody Screen NEGATIVE Crossmatch See Detail 03/29/18 03/29/18 08:10 14:16 WBC 6.1 RBC 4.61 Hgb 9.3 L Hct 32.1 L MCV 69.6 L MCH 20.2 L MCHC 29.0 L RDW 24.7 H RDW Differential 62.6 H Plt Count 290 MPV 8.4 Immature Gran % (Auto) 0.300 Neut % (Auto) 67.3 Lymph % (Auto) 20.7 [place] % (Auto) 10.3 H Eos % (Auto) 1.1 Baso % (Auto) 0.3 Absolute Neuts (auto) 4.1 Absolute Lymphs (auto) 1.27 Total Counted Pending Differential Comment PT INR Sodium 141 Potassium 4.0 Chloride 110 H Carbon Dioxide 22.0 Anion Gap 9 BUN 19 H Creatinine 1.10 H Estim Creat Clear Calc 31.81 Est GFR (MDRD) Af Amer 62 Est GFR (MDRD) Non-Af 51 L BUN/Creatinine Ratio 17.3 Glucose 131 H Calcium 8.2 L Iron TIBC Ferritin Vitamin B12 Folate Blood Type Antibody Screen Crossmatch Discharge Diet: No Restrictions Discharge Activity: Return to Normal Activity Call your doctor if you observe: Fainting spells, - - rectal bleeding. dark tarry stools. Home Medications: Medications to take at Discharge Acetaminophen [Mapap] 500 mg PO PRN PRN 03/28/18 Dicyclomine HCl 20 mg PO TID PRN PRN 03/28/18 Ferrous Sulfate 325 mg PO TID 03/28/18 Lansoprazole 30 mg PO DAILY 03/28/18 Levothyroxine Sodium 75 mcg PO DAILY 03/28/18 Lorazepam [Ativan] 1 mg PO BID 03/28/18 Losartan Potassium 50 mg PO DAILY 03/28/18 Ranitidine HCl 75 mg PO DAILY 03/28/18 Other Amb Orders: CBC W/Diff, Automated Time Frame: 1 Week, Location: Laboratory CBC W/Diff, Automated Time Frame: 2 Weeks, Location: Laboratory Primary Care Physician: Edgar Austin MD [Primary Care Provider] - Please Follow Up With: Shawnee Cid MD When: next week Disposition: Home Minutes spent on discharge:: 35 Patient Condition:: Good Medical Necessity - Tobacco Use Smoking Status: Never smoker Tobacco Use: Cigarettes Meaningful Use Info Meaningful Use Diagnoses (Choose all that apply): None applicable Code Visit OBSV E&M: 15796 Observation care discharge
[2018-03-29 15:11] LABS: Anisocytosis 1+; Microcytosis 2+
== END 2018-03-29 16:20 | disposition home or self-care (01) ==
LOC: ED 17:13 → MS3 18:16
PROVIDERS: Admitting Provider Family Medicine; Emergency Provider Emergency Medicine; Family Provider Family Medicine; PCP Family Medicine
DX: D62 Acute posthemorrhagic anemia (principal); I82.409 Acute embolism and thrombosis of unspecified deep veins of unspecified lower extremity; R53.83 Other fatigue; K21.9 Gastro-esophageal reflux disease without esophagitis; Z23 Encounter for immunization; E03.9 Hypothyroidism, unspecified; Z79.01 Long term (current) use of anticoagulants; Z79.899 Other long term (current) drug therapy; Z79.52 Long term (current) use of systemic steroids; K58.9 Irritable bowel syndrome, unspecified; D50.9 Iron deficiency anemia, unspecified; D68.51 Activated protein C resistance; Z86.718 Personal history of other venous thrombosis and embolism
CPT/HCPCS: 36415; 36430; 80048; 82274; 82607; 82728; 82746; 83540; 83550; 85014; 85018; 85025; 85027; 85610; 86850; 86900; 86920; 86922; 93005; 96365; 96366; 99218; 99282; G0008; J7040; P9016; 90686; A4216; G0378

== ENCOUNTER → 2018-04-03 14:33 | Outpatient (CLI) | payer MEDICARE, SELFPAY ==
[2018-04-03 15:50] LABS: Absolute Neutrophil Count 4.6 X10^3/uL (2.0-7.7); Basophil# 0.01 X10^3/uL; Basophil% 0.1 % (0-1); Eosinophil# 0.05 X10^3/uL; Eosinophils% 0.7 % (0-5); Hematocrit 34.9 % (37-47); Hemoglobin 10.4 g/dl (12.0-15.0); Mean Corp Hgb Conc 29.8 g/gl (32-36); Mean Corpuscular Hgb 21.1 pg (27.0-32.0); Mean Corpuscular Volume 70.6 fL (81-99); Mean Platelet Vol. 9.3 fl (6.2-12.0); Monocyte# 0.62 X10^3/uL; Monocyte% 9.1 % (0-10); Neutrophil # 4.61 X10^3/uL (2.7-7.7); Neutrophil % 67.5 % (47-70); Platelet Count 308 K/mm3 (150-450); Red Blood Count 4.94 M/mm3 (4.2-5.4); White Blood Count 6.8 K/mm3 (4.4-11.0)
[2018-04-03 15:52] LABS: POSITIVE COUNT NO; POSITIVE DIFFERENTIAL NO; POSITIVE MORPHOLOGY YES
[2018-04-03 15:53] LABS: Differential Indicated SCAN CRITERIA MET
[2018-04-03 16:20] LABS: Anion Gap 9 (5-15); BUN 21 mg/dL (7-18); BUN/Creat Ratio 21.9 RATIO (10-20); Calcium,Total 8.7 mg/dL (8.5-10.1); Chloride 107 mmol/L (98-107); Creatinine, Serum 0.96 mg/dL (0.55-1.02); EST Glomerular Filtration Rate 60 mL/min (>60); Est Glom Filt Rate - Afr Amer 72 mL/min (>60); Glucose 77 mg/dL (74-106); Potassium 4.4 mmol/L (3.5-5.1); Sodium Level 140 mmol/L (136-145); Thyroid Stim Hormone (TSH) 2.94 uIU/mL (0.358-3.74)
[2018-04-03 16:38] LABS: Anisocytosis 1+; Platelet Estimate ADEQUATE (ADEQ)
[2018-04-03 16:39] LABS: Hypochromasia RARE; Microcytosis 1+; Ovalocyte RARE; Target Cells RARE
== END ==
PROVIDERS: Family Provider Family Medicine; PCP Family Medicine; Visit Provider Family Medicine
DX: K92.2 Gastrointestinal hemorrhage, unspecified (principal); R94.4 Abnormal results of kidney function studies; R53.83 Other fatigue
CPT/HCPCS: 36415; 80048; 84443; 85025

== ENCOUNTER 2018-04-10 08:22 | Day surgery (SDC) | payer MEDICARE, SELFPAY ==
--- NOTE | 2018-04-10 | IMM_PTH ---
PATIENT: EVELYN BARBER LOC: EN U#:[id number] AGE/SX: 77/F ROOM: RE04/10/[address]: Dr. Shawnee Cid MD : 1940 BED: DIS: 04/10/2018 SPEC #: [id number] RECD: 04/11/18 08:03 STATUS: TIANA STEPHANIE #: [id number] KATHRINE: 04/10/18 00:[address]: Shawnee Cid DEPT: IMMUNOHISTOCHEMISTRY RECD BY: Roosevelt Wise ENTERED: 04/11/18 08:03 SP TYPE: IMMUNO OTHR DR: Dr. Edgar Austin MD Tissues: A - Gastric mucous membrane B - Gastric mucous membrane D - Ascending colon Procedures: H Pylori (initial) MLH-1 (add) MSH6 (add) Anti-PMS2 (add) SANTILLAN-2 (add) KI-67 (add) P53 (add) MSH2 (initial) PHYSICIAN & [address] [address] SPECIMEN INFORMATION: Tissue Source: A. Antrum biopsy, B. Gastric polyp biopsy, D. Mid ascending colon mass, biopsy Clinical Info: Acute blood loss, iron deficiency anemia, GERD, heme positive stool Specimen Number: [id number] A, B, D CPT code: 8834 x3, 42637 x6 METHODOLOGY: Deparaffinized sections of prefer/formalin-fixed tissue or PAP/DQ stained slides are incubated with monoclonal/polyclonal antibodies/oligonucleotide probes. Localization is made via biotin free immunoperoxidase method. Appropriate controls are performed and reacted as expected. Results on target cell population are indicated in the following table: RESULTS: ANTIBODY / CLONE RESULT Block A H Pylori (polyclonal) negative Block B H Pylori (polyclonal) negative Block D COLON CANCER PROFILE (Prognostic Markers) Ki-67 (30-9) positive, high P53 (DO-7) positive, weak to moderate SANTILLAN-2 (SP21) positive MLH-1 (M1) Indeterminate (nucleolar staining) MSH2 (25D12) positive MSH6 (44) positive PMS2 (SAZ4838) negative These tests were developed and their performance characteristics determined by [facility]. They may not have been cleared or approved by the U.S. Food and Drug Administration. The FDA has determined that such clearance or approval is not necessary. INTERPRETATION: A. Antrum biopsy: Negative for Helicobacter pylori organisms. B. Gastric polyp, biopsy: Negative for Helicobacter pylori organisms. D. Mid ascending colon mass, biopsy: Invasive adenocarcinoma Result of Microsatellite Instability Study: Positive (loss of mismatch protein; microsatellite instability detected). Complete loss of PMS2. Indeterminate for MLH1. Comment: FISH studies for MLH1 and/or genetic testing for MSI can be performed, if clinically indicated, please notify the laboratory if it is needed. This case has been reviewed in consultation with Dr. He who concurs with the above diagnosis. SJ:maisha
[2018-04-10 09:02] VITALS: BP 147/62; PULSE 77; RESP 16; TEMP 36.9; O2SAT 99; BMI 28.4
--- NOTE | 2018-04-10 10:00 | GASB_PTH ---
PATIENT: EVELYN BARBER LOC: EN U#:[id number] AGE/SX: 77/F ROOM: RE04/10/[address]: Dr. Shawnee Cid MD : 1940 BED: DIS: 04/10/2018 SPEC #: [id number] RECD: 04/10/18 11:34 STATUS: TIANA STEPHANIE #: [id number] KATHRINE: 04/10/18 10:[address]: Shawnee Cid DEPT: SURGICAL PATHOLOGY RECD BY: Wilson Gonzalez ENTERED: 04/10/18 12:49 SP TYPE: Gastric Bx OTHR DR: Dr. Edgar Austin MD Tissues: A - Gastric mucous membrane B - Gastric mucous membrane C - Gastric mucous membrane D - Ascending colon Procedures: Surgery Specimen Level IV HEADER OPERATION: Colonoscopy, EGD ([facility] [place]) PRE-OP DIAGNOSIS: Acute blood loss anemia, iron deficiency anemia, GERD, heme positive stool TISSUE SUBMITTED: A. Antrum biopsy for H. Pylori, B. Gastric polyp biopsy, C. GE junction biopsy, D. Biopsy mass mid ascending colon MICROSCOPIC DIAGNOSIS A. Antrum biopsy: Mild gastritis. See comment. B. Gastric polyp, biopsy: Consistent with inflammatory polyp. See comment. C. GE junction, biopsy: Fragments of gastric mucosa with chronic inflammation. Intestinal metaplasia (goblet cell metaplasia) not identified. See comment. D. Mid ascending colon mass, biopsy: Moderately differentiated adenocarcinoma. See comment. BERNARD:laurie 04/11/18 COMMENT A & B. The results of immunohistochemistry for Helicobacter pylori will be reported separately ([id number]). C. Alcian blue/PAS stain with matched control is used in the evaluation of the specimen. D. Results of immunohistochemistry for mismatched repair proteins will be reported separately ([id number]). Case has been reviewed in consultation with Dr. He who concurs with the above diagnosis. IDC:AM This case is discussed with Dr. Cid on 04/11/18 MICROSCOPIC DESCRIPTION Slides are reviewed. A. The specimen shows fragments of gastric mucosa with chronic inflammatory cell infiltrates in the lamina propria consisting of lymphocytes and plasma cells, consistent with mild chronic gastritis. GROSS DESCRIPTION A. Received is one container labeled with the patient name and designated antral biopsy. The specimen consists of one irregular fragment of light jorge soft tissue that measures 0.4 x 0.2 x 0.1 cm. The specimen is totally submitted in one cassette. B. Received is one container labeled with the patient name and designated gastric polyp. The specimen consists of two irregular fragments of light jorge soft tissue that in aggregate measure 0.6 x 0.3 x 0.1 cm. The specimen is totally submitted in one cassette. C. Received is one container labeled with the patient name and designated biopsy GE junction. The specimen consists of multiple irregular fragments of light jorge soft tissue that in aggregate measure 0.6 x 0.5 x 0.1 cm. The specimen is totally submitted in one cassette. D. Received is one container labeled with the patient name and designated biopsy mass mid ascending. The specimen consists of multiple irregular fragments of light jorge soft tissue that in aggregate measure 0.8 x 0.3 x 0.1 cm. The specimen is totally submitted in one cassette. /BERNARD:laurie 04/10/18 TC: 0 CPT: 01329 x4, 78951
[2018-04-10 11:00] VITALS: BP 125/72; BP 147/62; PULSE 75; RESP 16; TEMP 36.2; O2SAT 99
[2018-04-10 11:05] VITALS: BP 136/60; BP 147/62; PULSE 74; RESP 16; O2SAT 99
--- NOTE | 2018-04-10 11:05 | OP.ENDO_ITS ---
Patient Name: Dary Mathew Procedure Date: 04/10/2018 10:12 AM Date of : 1940 Age: 77 Procedure: Upper GI endoscopy Indications: Iron deficiency anemia secondary to chronic blood loss Providers: Shawnee Cid MD Medicines: Monitored Anesthesia Care Patient Profile: This is a 77 year old female. Complications: No immediate complications. Procedure: Pre-Anesthesia Assessment: - Prior to the procedure, a History and Physical was performed, and patient medications and allergies were reviewed. The patient's tolerance of previous anesthesia was also reviewed. The risks and benefits of the procedure and the sedation options and risks were discussed with the patient. All questions were answered, and informed consent was obtained. Prior Anticoagulants: The patient has taken Coumadin (warfarin), last dose was 2 weeks prior to procedure. ASA Grade Assessment: II - A patient with mild systemic disease. After reviewing the risks and benefits, the patient was deemed in satisfactory condition to undergo the procedure. After obtaining informed consent, the endoscope was passed under direct vision. Throughout the procedure, the patient's blood pressure, pulse, and oxygen saturations were monitored continuously. The gastroscope was introduced through the mouth, and advanced to the second part of duodenum. The upper GI endoscopy was accomplished without difficulty. The patient tolerated the procedure well. Scope In: 10:18:39 AM Scope Out: 10:31:37 AM Total Procedure Duration Time 0 hours 12 minutes 58 seconds Findings: There was a medium-sized lipoma in the first portion of the duodenum. Diffuse mild inflammation characterized by erythema was found in the gastric antrum. Biopsies were taken with a cold forceps for Helicobacter pylori testing. Mucosal changes characterized by erythema were found at the gastroesophageal junction. Biopsies were taken with a cold forceps for histology. The examined esophagus was normal. Multiple less than 5 mm sessile polyps with no bleeding and no stigmata of recent bleeding were found in the gastric fundus. The polyp was removed with a cold biopsy forceps. Resection and retrieval were complete. A small hiatal hernia was present. Impression: - Duodenal lipoma. - Gastritis. Biopsied. - Erythematous mucosa in the gastroesophageal junction. Biopsied. - Normal esophagus. Recommendation: - Await pathology results. - Discharge patient to home. - No aspirin, ibuprofen, naproxen, coumadin or other non-steroidal anti-inflammatory drugs. - Await pathology results. Procedure Code(s): --- Professional --- 45331, Esophagogastroduodenoscopy, flexible, transoral; with biopsy, single or multiple Diagnosis Code(s): --- Professional --- D50.0, Iron deficiency anemia secondary to blood loss (chronic) K31.89, Other diseases of stomach and duodenum K29.70, Gastritis, unspecified, without bleeding D17.5, Benign lipomatous neoplasm of intra-abdominal organs CPT copyright 2017 [employer]. All rights reserved. The codes documented in this report are preliminary and upon financial professional review may be revised to meet current compliance requirements. MD Shawnee Luna MD 04/10/2018 11:04:31 AM This report has been signed electronically. Number of Addenda: 0 Note Initiated On: 04/10/2018 10:12 AM
[2018-04-10 11:10] VITALS: BP 138/63; BP 147/62; PULSE 73; RESP 16; O2SAT 98
--- NOTE | 2018-04-10 11:12 | OP.ENDO_ITS ---
Patient Name: Dary Mathew Procedure Date: 04/10/2018 10:33 AM Date of : 1940 Age: 77 Procedure: Colonoscopy Indications: Unexplained iron deficiency anemia Providers: Shawnee Cid MD Medicines: Monitored Anesthesia Care Patient Profile: This is a 77 year old female. Last Colonoscopy: 5 years ago. Complications: No immediate complications. Procedure: Pre-Anesthesia Assessment: - Prior to the procedure, a History and Physical was performed, and patient medications and allergies were reviewed. The patient's tolerance of previous anesthesia was also reviewed. The risks and benefits of the procedure and the sedation options and risks were discussed with the patient. All questions were answered, and informed consent was obtained. Prior Anticoagulants: The patient has taken Coumadin (warfarin), last dose was 2 weeks prior to procedure. ASA Grade Assessment: II - A patient with mild systemic disease. After reviewing the risks and benefits, the patient was deemed in satisfactory condition to undergo the procedure. - Prior to the procedure, a History and Physical was performed, and patient medications and allergies were reviewed. The patient's tolerance of previous anesthesia was also reviewed. The risks and benefits of the procedure and the sedation options and risks were discussed with the patient. All questions were answered, and informed consent was obtained. Prior Anticoagulants: The patient has taken Coumadin (warfarin), last dose was 2 weeks prior to procedure. ASA Grade Assessment: II - A patient with mild systemic disease. After reviewing the risks and benefits, the patient was deemed in satisfactory condition to undergo the procedure. After I obtained informed consent, the scope was passed under direct vision. Throughout the procedure, the patient's blood pressure, pulse, and oxygen saturations were monitored continuously. The pediatric colonoscope was introduced through the anus and advanced to the cecum, identified by the appendiceal orifice, ileocecal valve and palpation. The colonoscopy was performed without difficulty. The patient tolerated the procedure well. The quality of the bowel preparation was good. Scope In: 10:35:05 AM Scope Withdrawal Time 0 hours 11 minutes 4 seconds Scope Out: 10:56:48 AM Total Procedure Duration Time 0 hours 21 minutes 43 seconds Findings: A polypoid non-obstructing large mass was found in the ascending colon. The mass was partially circumferential (involving one-third of the lumen circumference). Oozing was present. Biopsies were taken with a cold forceps for histology. Area was tattooed with an injection of 0.2 mL of Lily ink proximal to the mass and distal and below the mass. The exam was otherwise without abnormality on direct and retroflexion views. Multiple medium-mouthed diverticula were found in the sigmoid colon. Impression: - Malignant tumor in the ascending colon. Biopsied. Tattooed. - The examination was otherwise normal on direct and retroflexion views. Recommendation: - Discharge patient to home. - No aspirin, ibuprofen, naproxen, or other non-steroidal anti-inflammatory drugs. - Await pathology results. - check CBC, CMP, CEA - No recommendation at this time regarding repeat colonoscopy due to mass is likely malignant and will require surgery. Procedure Code(s): --- Professional --- 70316, Colonoscopy, flexible; with directed submucosal injection(s), any substance 45914, Colonoscopy, flexible; with biopsy, single or multiple Diagnosis Code(s): --- Professional --- C18.2, Malignant neoplasm of ascending colon D50.9, Iron deficiency anemia, unspecified CPT copyright 2017 [employer]. All rights reserved. The codes documented in this report are preliminary and upon assistant public defender review may be revised to meet current compliance requirements. MD Shawnee Luna MD 04/10/2018 11:12:14 AM This report has been signed electronically. Number of Addenda: 0 Note Initiated On: 04/10/2018 10:33 AM
[2018-04-10 11:15] VITALS: BP 139/60; BP 147/62; PULSE 72; RESP 16; O2SAT 99
[2018-04-10 11:26] LABS: Absolute Lymphocyte Count 0.89 X10^3/ul (0.83-4.51); Absolute Neutrophil Count 3.8 X10^3/uL (2.0-7.7); Basophil# 0.02 X10^3/uL; Basophil% 0.4 % (0-1); Eosinophil# 0.04 X10^3/uL; Eosinophils% 0.8 % (0-5); Hematocrit 36.2 % (37-47); Hemoglobin 10.6 g/dl (12.0-15.0); Lymphocyte # 0.89 X10^3/ul (4.0); Lymphocyte % 17.3 % (19-41); Mean Corp Hgb Conc 29.3 g/gl (32-36); Mean Corpuscular Hgb 21.7 pg (27.0-32.0); Mean Corpuscular Volume 74.2 fL (81-99); Mean Platelet Vol. 9.1 fl (6.2-12.0); Monocyte# 0.36 X10^3/uL; Neutrophil # 3.81 X10^3/uL (2.7-7.7); Neutrophil % 73.9 % (47-70); Platelet Count 232 K/mm3 (150-450); RBC Distribution Width CV 30.4 % (11.6-14.6); RBC Distribution Width SD 79.3 fl (35.1-43.9); Red Blood Count 4.88 M/mm3 (4.2-5.4); White Blood Count 5.2 K/mm3 (4.4-11.0)
[2018-04-10 11:27] LABS: Differential Indicated SCAN CRITERIA MET; POSITIVE COUNT NO; POSITIVE DIFFERENTIAL NO; POSITIVE MORPHOLOGY YES
[2018-04-10 11:35] LABS: ALB/GLOB Ratio 0.9 RATIO (0.9-2.4); AST(SGOT) 19 U/L (15-37); Alanine Aminotransfer ALT/SGPT 22 U/L (13-56); Albumin, Serum 3.3 g/dL (3.2-5.0); Alkaline Phosphatase 89 U/L (45-117); Anion Gap 9 (5-15); BUN 14 mg/dL (7-18); BUN/Creat Ratio 14.3 RATIO (10-20); Calcium,Total 8.5 mg/dL (8.5-10.1); Chloride 105 mmol/L (98-107); Creatinine, Serum 0.98 mg/dL (0.55-1.02); EST Glomerular Filtration Rate 58 mL/min (>60); Est Glom Filt Rate - Afr Amer 71 mL/min (>60); Globulin 3.5 g/dL (2.2-4.2); Glucose 101 mg/dL (74-106); Protein, Total 6.8 g/dL (6.4-8.2); Sodium Level 139 mmol/L (136-145)
[2018-04-10 11:41] VITALS: BP 147/62
[2018-04-11 08:18] LABS: Carcinoembryonic Antigen 7.3 ng/mL (0.0-4.7)
== END 2018-04-10 11:58 | disposition home or self-care (01) ==
LOC: EN 08:24 → AC 08:25
PROVIDERS: Family Provider Family Medicine; PCP Family Medicine; Referring Provider Surgery; Visit Provider Surgery
PROC: 0DJD8ZZ Inspection of Lower Intestinal Tract, Via Natural or Artificial Opening Endoscopic (ICD-10-PCS; CPT 45378; principal; 2018-04-10 09:55)
DX: C18.2 Malignant neoplasm of ascending colon (principal); K29.70 Gastritis, unspecified, without bleeding; K44.9 Diaphragmatic hernia without obstruction or gangrene; K57.30 Diverticulosis of large intestine without perforation or abscess without bleeding; D50.0 Iron deficiency anemia secondary to blood loss (chronic); K21.9 Gastro-esophageal reflux disease without esophagitis; E03.9 Hypothyroidism, unspecified; F41.9 Anxiety disorder, unspecified; I10 Essential (primary) hypertension; Z86.718 Personal history of other venous thrombosis and embolism; Z86.711 Personal history of pulmonary embolism; Z79.01 Long term (current) use of anticoagulants; Z79.899 Other long term (current) drug therapy
CPT/HCPCS: 43239; 45380; 45381; 80053; 82378; 85025; 88305; 88341; 88342; J7120; A4648

== ENCOUNTER → 2018-04-17 14:28 | Outpatient (CLI) | payer MEDICARE, SELFPAY ==
--- NOTE | 2018-04-17 14:29 | CT_ITS ---
STUDY: CT ABDOMEN AND PELVIS WITH CONTRAST REASON FOR EXAM: Female, 77 years old. Colon mass, loss of blood, shortness of breath RADIATION DOSAGE (If Supplied By Facility): CTDIvol = ( 16.01 ) mGy, DLP = ( 628.45 ) mGycm TECHNIQUE: Transaxial images were obtained from the dome of the diaphragm to the symphysis pubis without oral contrast. 100ML ml of Isovue 300 contrast was administered. Sagittal and coronal images were reconstructed. Individualized dose optimization techniques were used for this CT. COMPARISON: None. FINDINGS: The visualized lung bases are unremarkable. The visualized portions of the heart are within normal limits. Normal liver. Normal gallbladder and extrahepatic biliary system. Normal spleen. Normal pancreas. Normal bilateral adrenal glands. There is a 1 cm simple cyst of the right mid kidney. Normal left kidney. No hydronephrosis or solid masses. Normal visualized stomach. Normal small intestine. There are multiple colonic diverticula consistent with diverticulosis. There are segments of the right, transverse, left colon which are incompletely distended. For instance, there is a 2.5 cm segment of right colon nondistention but relative wall thickening on coronal image 93 that could represent true wall thickening versus artifact of nondistention. There is non-visualization of the appendix. There is diffuse atherosclerotic calcification of the abdominal aorta, without a demonstrated aneurysm. Normal inferior vena cava. There is narrowing of the left common and external iliac vein (latter more than former) with dilated veins of the lower abdominal wall. Normal retroperitoneum. Nondistended urinary bladder. There is absence of the uterus consistent with a prior hysterectomy. Normal abdominal wall. There are degenerative changes of the thoracolumbar spine. Compression deformity of L1 is felt to be chronic. CT/Abdomen/Pelvis WITH Contrast IMPRESSION: 1. No definitive intra-abdominal/pelvic mass. 2. Portions of the colon are nondistended, particularly in the right mid colon. True wall thickening/mass cannot be excluded. 3. 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 4. Simple right renal cyst. Electronically Signed: Balwinder Granados MD at 9:00 EST , Service support ,
--- NOTE | 2018-04-17 14:29 | CT_ITS ---
STUDY: CT CHEST WITH CONTRAST REASON FOR EXAM: Female, 77 years old. Colon mass, loss of blood, shortness of breath RADIATION DOSAGE (If Supplied By Facility): CTDIvol = ( ) mGy, DLP = ( ) mGycm TECHNIQUE: Transaxial imaging was performed following intravenous administration of 100ML ml of Isovue 300 contrast material. Multiplanar coronal and sagittal images were reformatted. Individualized dose optimization techniques were used for this CT. COMPARISON: None. FINDINGS: Minimal fibrotic scarring in the left more than right lower lobe as well as along the medial right upper lobe. There is a 4 mm noncalcified round smoothly marginated nodule in the medial right upper lobe on image 41. No additional pulmonary nodules are seen.. There is no demonstrated pleural abnormality. Normal heart and pericardium. Normal mediastinum. Normal hilar regions. Normal enhanced pulmonary arteries. Mild atherosclerosis of the thoracic aorta. There are multi-level degenerative changes of the thoracic spine. Upper abdomen described on abdomen/pelvis CT, reported separately. CT/Chest WITH Contrast IMPRESSION: 1. No pulmonary mass or adenopathy detected. 2. 4 mm nodule in the medial right upper lobe. Too small for additional evaluation with PET scan/biopsy. Follow-up CT is recommended. Comparison studies may be useful to determine interval change. Electronically Signed: Balwinder Granados MD at 9:09 EST , Service support ,
== END ==
PROVIDERS: Family Provider Family Medicine; PCP Family Medicine; Referring Provider Surgery; Visit Provider Surgery
DX: C18.9 Malignant neoplasm of colon, unspecified (principal)
CPT/HCPCS: 71260; 74177; Q9967

== ENCOUNTER 2018-05-01 10:32 | Inpatient (IN) | payer MEDICARE, SELFPAY ==
[2018-04-24 14:54] VITALS: BP 125/65; PULSE 85; RESP 17; TEMP 36.6; O2SAT 96; BMI 29.2
[2018-04-24 16:14] LABS: Hematocrit 37.1 % (37-47); Hemoglobin 11.1 g/dl (12.0-15.0); Mean Corp Hgb Conc 29.9 g/gl (32-36); Mean Corpuscular Hgb 22.8 pg (27.0-32.0); Mean Corpuscular Volume 76.3 fL (81-99); Mean Platelet Vol. 9.3 fl (6.2-12.0); Platelet Count 233 K/mm3 (150-450); Red Blood Count 4.86 M/mm3 (4.2-5.4); White Blood Count 7.4 K/mm3 (4.4-11.0)
[2018-04-24 16:26] LABS: Scan Indicated on CBC? Y/N YES- FLAGS NOTED
[2018-04-24 16:45] LABS: Differential Comment SCANNED
[2018-05-01] VITALS (13 sets, daily range): BP systolic 117–149; BP diastolic 66–115; PULSE 67–90; RESP 16; TEMP 36.1–37.1; O2SAT 95–100; BMI 29.2
[2018-05-01 11:21] LABS: Prothrombin Time Fingerstick 12.2 SEC (11.9-14.4)
[2018-05-01 11:25] LABS: Bedside Glucose 102 mg/dL (70-110)
[2018-05-01] MEDS: Gabapentin 600 MG Tablet PO (11:25)
[2018-05-01] MEDS: Acetaminophen 500 MG Tablet 1000 MG PO ×2 (11:25→23:04)
[2018-05-01] MEDS: Enoxaparin 30 MG/0.3 ML Syringe SC (11:29)
--- NOTE | 2018-05-01 13:00 | COL._PTH ---
PATIENT: EVELYN BARBER LOC: MS3 U#:[id number] AGE/SX: 77/F ROOM: VA318 RE05/01/[address]: Dr. Shawnee Cid MD : [id number] BED: 1 DIS: 05/05/2018 SPEC #: [id number] RECD: 05/02/18 10:42 STATUS: TIANA REConstantine #: [id number] KATHRINE: 05/01/18 13:[address]: Shawnee Cid DEPT: SURGICAL PATHOLOGY RECD BY: Guerline Barros ENTERED: 05/02/18 15:07 SP TYPE: COLON OTHR DR: Dr. Edgar Austin MD Tissues: Right colon Procedures: Surgery Specimen Level HEADER OPERATION: Laparoscopic converted to pen, right hemicolectomy, ERAs PRE-OP DIAGNOSIS: Primary adenocarcinoma of ascending colon TISSUE SUBMITTED: Right colon MICROSCOPIC DIAGNOSIS Right colon, segmental colectomy: Invasive adenocarcinoma. See cancer checklist below. AM:tha 05/06/18 COMMENT COLON CANCER SUMMARY: Specimen - right colon Procedure - right hemicolectomy Tumor site - right colon Tumor size - 3 x 3 x 0.7 cm Macroscopic tumor perforation - not identified Histologic type - adenocarcinoma Histologic grade - moderately differentiated (low-grade) Microscopic tumor extension - Tumor invades through muscularis propria into the subserosal adipose tissue. Margins: Proximal margin - uninvolved by carcinoma Distal margin - uninvolved by carcinoma Distance from closest mucosal (distal) margin - 2 cm Treatment effect - unknown Lymph-Vascular invasion - not identified Perineural invasion - not identified Tumor deposits - not identified Lymph nodes: Number of lymph nodes examined - 13 Number of lymph nodes involved by carcinoma - 0 Additional pathologic findings - appendix with fibrous obliteration and benign epithelial inclusion cysts. 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 There was an indeterminate staining for MLH1. PATHOLOGIC STAGE: pT3 N0 Mx The above summary is in compliance with [employer] (CAP) Cancer Protocols Checklist and [place] [employer] Committee on Cancer (AJCC), Staging Manual, 8th Ed. Reference is made to the patient's previous mid ascending colon biopsy ([id number]) in which moderate differentiated adenocarcinoma was identified. Case has been reviewed in consultation with Dr. Peña who concurs with the above diagnosis. IDC:SJ MICROSCOPIC DESCRIPTION Slides are reviewed. GROSS DESCRIPTION Received in fixative is one container labeled with the patient's name and designated right colon. The specimen consists of a right hemicolectomy specimen consisting of segment of cecum with ascending colon and small intestine and appendix. The cecum with ascending colon measures up to 9 cm in length and segment of small intestine measures 3.5 cm in length and appendix measures 4 cm in length and up to 0.3 cm in diameter. The attached pericolonic adipose tissue measures up to 7 cm in width. Both resections margins are stapled. The serosal surface close to the cecum shows blue dye discoloration. 2 cm away from the distal resection margin there is a raised, round, pink mass measuring 3 x 3 x 0.7 cm. The serosa overlying the mass is inked black. No other mucosal lesion is identified. Also present in the container is a detached piece of adipose tissue consistent with omentum measuring 6 x 7 x 2 cm. / SJ:rg 05/02/18 Also present in the container are two donut-shaped pieces of colonic tissue measuring 3 x 0.5 x 0.5 cm and 1 x 1 x 0.5 cm. Multiple destiny are noted in these pieces. Sections of the appendix do not reveal any mass lesion. The appendical lumen is completely obliterated. The serosal surface over the tumor mass is inked black. No additional mass lesion is identified. Sections of the tumor mass reveal it involves the whole thickness of bowel wall; however, no obvious invasion into the pericolonic adipose tissue is noted. Sections of the pericolonic adipose tissue reveal multiple lymph nodes. The largest lymph node measures 1 cm in greatest dimension. Base Loader sections are submitted in 18 cassettes as follows: 1 - donut, 2 - appendix, entirely submitted, 3 - proximal and distal resection margins, 4-9 - entire tumor with underlying bowel wall, 10 - Base Loader section of ileocecal valve, small and large intestine. Sections of the omentum do not reveal any obvious mass lesion. 11 - omentum and possible lymph nodes, 12 - one bisected lymph node, 13 - one bisected lymph node, 14 - one bisected lymph node, 15 - one bisected lymph node, 16 - one bisected lymph node, 17 - multiple lymph nodes, 18 - multiple lymph nodes. / SJ:tha 05/03/18 TC:0 CPT: 97701
[2018-05-01] MEDS: Lidocaine/D5W 2,000 MG/250 ML IV.SOLN 2000 MG (13:27)
[2018-05-01] MEDS: BUPIVACAINE LIPOSOME/PF 20 ML VIAL OPERA.SITE (16:00)
[2018-05-01] MEDS: Bupivacaine 0.25% 30 ML Vial (16:00)
--- NOTE | 2018-05-01 16:14 | PCM.OPRPT ---
Report of Operation Date of Procedure: 05/01/18 Pre-Operative Diagnosis: Ascending colon adenocarcinoma Post-Operative Diagnosis: Same Surgery/Procedure Performed:: Laparoscopic converted to open right hemicolectomy family services assistant: Elliott Hair family services assistant: Beverly Rizvi Type of Anesthesia:: General/Supplemental Anesthesiologist: Ryan Garcia Special Medications: Cefotan 2 g IV x1 Specimen's removed: Right colon Drains: 8 Fr funk -80cc Estimated Blood Loss (mL): 50 cc Fluids Replaced: 1500 cc Description of Procedure: Indications this is a 77-year-old female who initially had anemia of 6.3 on workup with EGD and colonoscopy was found to have descending colon mass which was consistent with adenocarcinoma, patient's past medical history for factor V Leiden and is on Coumadin which has been held. Further workup with CT chest/abdomen/pelvis was negative for obvious metastatic disease, there was a nodule in the right medial upper lobe of the lung which was 4 mm unable to do a PET scan or biopsy recommend follow-up CT. Patient did receive 2 units of packed red blood cells and with iron supplementation and holding Coumadin her current hemoglobin is 11.1. Description procedure: The patient was placed on operating table in low lithotomy position. General Anesthesia was induced. A timeout was completed verifying correct patient, procedure, site, position, social, and special equipment prior to beginning procedure. Preoperative antibiotics were given. An orogastric tube was placed. The abdomen was prepped and draped in usual sterile fashion. An incision was made in the natural skin line above the umbilicus. The fascia was elevated and incised. The peritoneum was elevated and incised. Entry into the peritoneum was confirmed visually and no bowel was noted in the vicinity of the incision. Tobar trocar was placed. The abdomen was insufflated with carbon dioxide to a pressure of 12-15 mmHg. Patient tolerated insufflation well. The laparoscope was then inserted and abdomen inspected. No injuries from initial trocar placement were noted and there is no evidence of metastatic disease. NATALIA block was done bilaterally using a total of 70 cc of a mixture of 20 cc of Exparel, 0.25% Marcaine 30 cc, 100 cc of saline this was done under direct visualization about every centimeter from the ASIS to the ribs on the lateral aspect bilaterally. The NATALIA block also continued anteriorly along the inferior portions of the rib about every centimeter. Additional trochars were then inserted in the following locations 5 mm trocar in the left lower quadrant, left mid quadrant and right lower quadrant. The abdomen was inspected the area of the ascending colon mass did have some filmy adhesions to the anterior lateral abdominal wall these were taken down carefully with the LigaSure. The table is placed in Trendelenburg position with the right side up. Patient's omentum was stuck down in the left lower quadrant this was unable to be freed easily and this is not allow for adequate visualization of the proximal ileocolic vessels. We did a lateral to medial mobilization using LigaSure along the white line of Toldt. However due to very mobile transverse colon and fatty omentum with a hard time finding the correct plane once we were at the hepatic flexure/transverse colon. We converted to an open procedure and trochars were removed. Supraumbical trocar site was enlarged with cut electrocautery and deepen to the fascia for a midline incision. A wound protector was placed. The proximal ileocolic artery and vein were dissected and suture ligated with a 2-0 silk. The right branch of the middle colic was identified and ligated using the ligasure. Remaining mesentery and all associated jacky tissue was divided with the ligasure. The hepatic flexure was mobilized. The The distal ileum and proximal transverse colon were selected for transection. GRAY 75 blue load was used to divide. Specimen was removed and sent to histology. The proximal and distal segments were bought into apposition and found to lie comfortably next to each other. Enterotomies were made on the antimesenteric corner ofthe staple line on the ileum and transverse colon and the GRAY 75 was inserted and fired. Hemostatssis was checked on the staple line. The enterotomies were then closed with a TL 60 stapler. The anastomatosis was checked and found to be intact and widely patent. The abdominal cavity was irrigated and hemostasis was checked. There was some oozing from the omentum stuck in the LLQ, which was freed using the ligasure and hemostasis was achieved. Wound protector was removed. Gowns and gloves were changed. The umbilical incision was closed with 1-0 PDS suture at the fascia and several 2-0 Vicryl subdermal interrupted sutures and then the skin was closed with 4-0 Monocryl interrupted sutures. Port sites were also closed with 4-0 Monocryl. Dry sterile dressings were applied. The sponge and instrument count were correct. The patient was extubated. The patient tolerated procedure well and was taken to the postanesthesia care unit in stable condition. - Complications None
[2018-05-01] MEDS: Lactated Ringers 1,000 ML 40 ML IV (17:53)
[2018-05-01] MEDS: Ondansetron ODT 4 MG Tablet PO (20:07)
--- NOTE | 2018-05-01 20:41 | NURSING ---
Talked to DR. Cid on the phone about patients condition after surgery (medications, Ab binder and Kpad if Pt wants one).
[2018-05-01] MEDS: Pantoprazole Sodium 40 MG Tablet PO (21:37)
[2018-05-01] MEDS: Famotidine 20 MG Tablet 10 MG PO (21:37)
[2018-05-01] MEDS: Losartan Potassium 50 MG Tablet PO (21:38)
[2018-05-01] MEDS: Docusate Sodium 100 MG Capsule PO (21:38)
[2018-05-02] VITALS (9 sets, daily range): BP systolic 124–147; BP diastolic 54–73; PULSE 76–96; RESP 16–18; TEMP 36.4–37.1; O2SAT 95–100
[2018-05-02] MEDS: Ondansetron ODT 4 MG Tablet PO ×2 (02:36→10:15)
[2018-05-02] MEDS: Acetaminophen 500 MG Tablet 1000 MG PO ×3 (05:20→17:53)
[2018-05-02] MEDS: Levothyroxine 75 MCG Tablet PO (05:20)
[2018-05-02 06:39] LABS: Hematocrit 34.3 % (37-47); Hemoglobin 10.6 g/dl (12.0-15.0); Mean Corp Hgb Conc 30.9 g/gl (32-36); Mean Corpuscular Hgb 24.2 pg (27.0-32.0); Mean Corpuscular Volume 78.3 fL (81-99); Mean Platelet Vol. 9.5 fl (6.2-12.0); Platelet Count 240 K/mm3 (150-450); Red Blood Count 4.38 M/mm3 (4.2-5.4); White Blood Count 9.6 K/mm3 (4.4-11.0)
[2018-05-02 06:42] LABS: Scan Indicated on CBC? Y/N YES- FLAGS NOTED
[2018-05-02 06:48] LABS: BUN 13 mg/dL (7-18); Creatinine, Serum 1.29 mg/dL (0.55-1.02); Estimated Creatinine Clearance 27.12 ml/min; Glucose 135 mg/dL (74-106)
[2018-05-02 06:49] LABS: Anion Gap 6 (5-15); BUN/Creat Ratio 10.1 RATIO (10-20); Calcium,Total 8.1 mg/dL (8.5-10.1); Chloride 106 mmol/L (98-107); EST Glomerular Filtration Rate 42 mL/min (>60); Est Glom Filt Rate - Afr Amer 51 mL/min (>60); Potassium 5.1 mmol/L (3.5-5.1); Sodium Level 139 mmol/L (136-145)
[2018-05-02 07:19] LABS: Differential Comment SCAN
--- NOTE | 2018-05-02 08:29 | PCM.PN.SRG ---
Subjective: Patient does complain of some abdominal pain a 4/10 she does states Tylenol helps, denies flatus, has only been standing some in the room no walking in the halls, did have some nausea and received medication - Physical Exam General: Alert, Oriented x3, Cooperative, No apparent distress HEENT: Atraumatic Cardiovascular: Regular rate Abdomen: Soft, Distended - Minimal?mild, Tender - Near incision, incisions dressed clean dry and intact, no peritoneal signs Extremities: No clubbing, No cyanosis, No edema Neurological: Cranial nerves II-XII grossly intact Vital Signs Temp Pulse Resp BP Pulse Ox 97.6 F L 80 16 133/73 H 100 05/02/18 05:22 05/02/18 08:18 05/02/18 05:22 05/02/18 05:22 05/02/18 07:32 Oxygen Flow Rate (L/min) 2 Oxygen Delivery Method Nasal Cannula Weight: 154 lb 12.232 oz Body Mass Index (BMI) 29.2 Intake and Output for Last 24 Hours 04/30/18 05/01/18 05/02/18 23:59 23:59 23:59 Intake Total 1999 / 1999 960 / 960 Output Total 140 / 140 500 / 500 Balance 1860 / 1860 460 / 460 Laboratory Tests Past 24 Hrs 05/01/18 05/02/18 05/02/18 11:16 06:00 06:00 WBC 9.6 RBC 4.38 Hgb 10.6 L Hct 34.3 L MCV 78.3 L MCH 24.2 L MCHC 30.9 L RDW Not Reportable RDW Differential Not Reportable Plt Count 240 MPV 9.5 Differential Comment SCAN POC PT 12.2 INR 1.00 Sodium 139 Potassium 5.1 Chloride 106 Carbon Dioxide 27.0 Anion Gap 6 BUN 13 Creatinine 1.29 H Estim Creat Clear Calc 27.12 Est GFR (MDRD) Af Amer 51 L Est GFR (MDRD) Non-Af 42 L BUN/Creatinine Ratio 10.1 Glucose 135 H Calcium 8.1 L POC Glucose 05/01/18 11:14 POC Glucose 102 Medical Necessity - Tobacco Use Smoking Status: Former smoker Tobacco Use: Cigarettes Assessment/Plan All Active Problems (Last Reviewed 04/02/18 @ 08:29 by Kylah Sinha) Right upper lobe pulmonary nodule (Acute) Heme positive stool (Acute) Acute blood loss anemia (Acute) 77-year-old female postop day 1 lap converted to open right hemicolectomy for ascending colon adenocarcinoma 1. We will continue clears as tolerated, due to patient's current nausea will not advance at this time. No flatus 2. Patient's urine output has been okay overnight did give patient 250 cc bolus due to creatinine being elevated 1.29 from her normal 0.98 3. Continue pain control with Tylenol we will not add Toradol due to her creatinine, patient does need additional pain meds will use narcotics 4. Encourage I-S use and ambulation in the fuentes 5. DVT prophylaxis Lovenox, PPI Shawnee Cid M.D. Pager: [phone] [facility] [address] [place] [address], [facility], [address] [place] [id number] Office: [phone]
--- NOTE | 2018-05-02 08:33 | PN.SURG_ITS ---
Subjective: Patient does complain of some abdominal pain a 4/10 she does states Tylenol helps, denies flatus, has only been standing some in the room no walking in the halls, did have some nausea and received medication - Physical Exam General: Alert, Oriented x3, Cooperative, No apparent distress HEENT: Atraumatic Cardiovascular: Regular rate Abdomen: Soft, Distended - Minimal?mild, Tender - Near incision, incisions dressed clean dry and intact, no peritoneal signs Extremities: No clubbing, No cyanosis, No edema Neurological: Cranial nerves II-XII grossly intact Vital Signs Temp Pulse Resp BP Pulse Ox 97.6 F L 80 16 133/73 H 100 05/02/18 05:22 05/02/18 08:18 05/02/18 05:22 05/02/18 05:22 05/02/18 07:32 Oxygen Flow Rate (L/min) 2 Oxygen Delivery Method Nasal Cannula Weight: 154 lb 12.232 oz Body Mass Index (BMI) 29.2 Intake and Output for Last 24 Hours 04/30/18 05/01/18 05/02/18 23:59 23:59 23:59 Intake Total 1999 / 1999 960 / 960 Output Total 140 / 140 500 / 500 Balance 1860 / 1860 460 / 460 Laboratory Tests Past 24 Hrs 05/01/18 05/02/18 05/02/18 11:16 06:00 06:00 WBC 9.6 RBC 4.38 Hgb 10.6 L Hct 34.3 L MCV 78.3 L MCH 24.2 L MCHC 30.9 L RDW Not Reportable RDW Differential Not Reportable Plt Count 240 MPV 9.5 Differential Comment SCAN POC PT 12.2 INR 1.00 Sodium 139 Potassium 5.1 Chloride 106 Carbon Dioxide 27.0 Anion Gap 6 BUN 13 Creatinine 1.29 H Estim Creat Clear Calc 27.12 Est GFR (MDRD) Af Amer 51 L Est GFR (MDRD) Non-Af 42 L BUN/Creatinine Ratio 10.1 Glucose 135 H Calcium 8.1 L POC Glucose 05/01/18 11:14 POC Glucose 102 Medical Necessity - Tobacco Use Smoking Status: Former smoker Tobacco Use: Cigarettes Assessment/Plan All Active Problems (Last Reviewed 04/02/18 @ 08:29 by Kylah Sinha) Right upper lobe pulmonary nodule (Acute) Heme positive stool (Acute) Acute blood loss anemia (Acute) 77-year-old female postop day 1 lap converted to open right hemicolectomy for ascending colon adenocarcinoma 1. We will continue clears as tolerated, due to patient's current nausea will not advance at this time. No flatus 2. Patient's urine output has been okay overnight did give patient 250 cc bolus due to creatinine being elevated 1.29 from her normal 0.98 3. Continue pain control with Tylenol we will not add Toradol due to her creatinine, patient does need additional pain meds will use narcotics 4. Encourage I-S use and ambulation in the fuentes 5. DVT prophylaxis Lovenox, PPI Shawnee Cid M.D. Pager: [phone] [facility] [address] [place] [address], [facility], [address] [place] [id number] Office: [phone]
[2018-05-02] MEDS: 0.9% Normal Saline 1,000 ML 40 ML IV (09:09)
[2018-05-02] MEDS: LORazepam 1 MG Tablet PO ×2 (09:09→22:00)
[2018-05-02] MEDS: Enoxaparin 30 MG/0.3 ML Syringe SC (09:09)
[2018-05-02] MEDS: Docusate Sodium 100 MG Capsule PO ×2 (09:10→22:00)
[2018-05-02] MEDS: Pantoprazole Sodium 40 MG Tablet PO (09:10)
--- NOTE | 2018-05-02 11:29 | CASEMGMT ---
JAM RAYMOND INITIAL ASSESSMENT D/C PLAN: Home Face to Face with patient for initial transition planning/care coordination assessment. JAM RAYMOND introduced self and role at [facility]. Pt resting quietly in bed. Willing to participate in assessment and all questions answered appropriately. Care providers, pharmacy, and demographics verified. PCP: [facility] Specialists: States none Preferred Pharmacy: [facility]. Insurance: [employer] MCR Prescription Benefit: Yes, [employer] Living Will/HPOA: States thinks her HCPOA is her niece, Crystal Day, and is not sure if she has a LW. Does not want to talk with SW about more information. Informed pt that if she finds the paperwork and would like to talk with someone about them, has further questions, or does not have LW or HCPOA and would like to fill out paperwork, that she can call SW as an out-pt to make an appt. Given SW info card with contact information. Also provided pt with AD info packet. LNOK: [place], Kandis and Crystal. Living Arrangements: Lives with Significant Other, Ric Transportation: Pt drives. Ric is able to assist w/transportation if needed. DME: Denies using any DME and denies needs. HHC/SNF: Has never used HHC services or been to a SNF. Denies needs for HHC and no needs identified. Pt wishes to return home. Denies concerns with discharge. States she does not drink ETOH or smoke. CM to follow for any further discharge planning needs that may arise. Adriana MOHAN RN, CM
[2018-05-02] MEDS: 0.9% NaCl Peripheral Flush Adult/Peds IV (12:13)
[2018-05-02] MEDS: Morphine 2 MG/ML Syringe IV (12:14)
[2018-05-02] MEDS: oxyCODONE 5 MG Tablet PO (18:01)
[2018-05-02] MEDS: Losartan Potassium 50 MG Tablet PO (22:00)
[2018-05-02] MEDS: Famotidine 20 MG Tablet 10 MG PO (22:01)
[2018-05-03] MEDS: Acetaminophen 500 MG Tablet 1000 MG PO ×4 (00:09→18:10)
[2018-05-03 04:03] VITALS: BP 154/72; PULSE 80; RESP 18; TEMP 37; O2SAT 96
[2018-05-03] MEDS: oxyCODONE 5 MG Tablet PO ×3 (04:11→16:12)
[2018-05-03] MEDS: Levothyroxine 75 MCG Tablet PO (06:12)
[2018-05-03 06:43] LABS: Anion Gap 8 (5-15); BUN 11 mg/dL (7-18); BUN/Creat Ratio 9.7 RATIO (10-20); Calcium,Total 8.1 mg/dL (8.5-10.1); Chloride 108 mmol/L (98-107); Creatinine, Serum 1.13 mg/dL (0.55-1.02); EST Glomerular Filtration Rate 49 mL/min (>60); Est Glom Filt Rate - Afr Amer 60 mL/min (>60); Estimated Creatinine Clearance 30.96 ml/min; Glucose 103 mg/dL (74-106); Potassium 4.2 mmol/L (3.5-5.1); Sodium Level 141 mmol/L (136-145)
[2018-05-03 06:44] LABS: Hematocrit 32.4 % (37-47); Mean Corp Hgb Conc 30.9 g/gl (32-36); Mean Corpuscular Hgb 24.4 pg (27.0-32.0); Mean Platelet Vol. 9.5 fl (6.2-12.0); Platelet Count 229 K/mm3 (150-450); White Blood Count 7.5 K/mm3 (4.4-11.0)
[2018-05-03] MEDS: Ensure Surgery 237 ML LIQUID PO ×3 (06:47→21:14)
--- NOTE | 2018-05-03 06:48 | PCM.PN.SRG ---
Subjective: Patient denies flatus, tolerating some clears no nausea overnight, ambulating halls - Physical Exam General: Alert, Oriented x3, Cooperative, No apparent distress Cardiovascular: Regular rate Abdomen: Soft, Distended - Mild to moderate, Tender - Near incision, no peritoneal signs incisions clean dry and intact Extremities: No clubbing, No cyanosis, No edema Neurological: Cranial nerves II-XII grossly intact Vital Signs Temp Pulse Resp BP Pulse Ox 98.6 F 80 18 154/72 H 96 05/03/18 04:03 05/03/18 04:03 05/03/18 04:03 05/03/18 04:03 05/03/18 04:03 Oxygen Flow Rate (L/min) 2 Oxygen Delivery Method Room Air Weight: 154 lb 12.232 oz Body Mass Index (BMI) 29.2 Intake and Output for Last 24 Hours 05/01/18 05/02/18 05/03/18 23:59 23:59 23:59 Intake Total 1999 / 1999 2197 / 2197 813 / 813 Output Total 140 / 140 1500 / 1500 1000 / 1000 Balance 1860 / 1860 697 / 697 -187 / -187 Laboratory Tests Past 24 Hrs 05/02/18 05/02/18 05/03/18 06:00 06:00 06:02 WBC Pending RBC Pending Hgb Pending Hct Pending MCV Pending MCH Pending MCHC Pending RDW Pending RDW Differential Pending Plt Count Pending Differential Comment SCAN Sodium 139 Potassium 5.1 Chloride 106 Carbon Dioxide 27.0 Anion Gap 6 BUN 13 Creatinine 1.29 H Estim Creat Clear Calc 27.12 Est GFR (MDRD) Af Amer 51 L Est GFR (MDRD) Non-Af 42 L BUN/Creatinine Ratio 10.1 Glucose 135 H Calcium 8.1 L 05/03/18 06:02 WBC RBC Hgb Hct MCV MCH MCHC RDW RDW Differential Plt Count Differential Comment Sodium 141 Potassium 4.2 Chloride 108 H Carbon Dioxide 25.0 Anion Gap 8 BUN 11 Creatinine 1.13 H Estim Creat Clear Calc 30.96 Est GFR (MDRD) Af Amer 60 Est GFR (MDRD) Non-Af 49 L BUN/Creatinine Ratio 9.7 L Glucose 103 Calcium 8.1 L Medical Necessity - Tobacco Use Smoking Status: Former smoker Tobacco Use: Cigarettes Assessment/Plan All Active Problems (Last Reviewed 04/02/18 @ 08:29 by Kylah Sinha) Right upper lobe pulmonary nodule (Acute) Heme positive stool (Acute) Acute blood loss anemia (Acute) 77-year-old female postop day 2 lap converted to open right hemicolectomy for ascending colon adenocarcinoma 1. Patient has been tolerating clears will advance to full's with Ensure. Await flatus to advance diet 2. Good urine output with improvement of creatinine 3. Continue pain control with Tylenol and OxyIR 2.5-5 mg p.o. q 4hr prn pain 4. Encourage I-S use and ambulation in the fuentes 5. DVT prophylaxis Lovenox, PPI Shawnee Cid M.D. Pager: [phone] [facility] [address] [place] [address], [facility], [address] [place] [id number] Office: [phone]
--- NOTE | 2018-05-03 06:51 | PN.SURG_ITS ---
Subjective: Patient denies flatus, tolerating some clears no nausea overnight, ambulating halls - Physical Exam General: Alert, Oriented x3, Cooperative, No apparent distress Cardiovascular: Regular rate Abdomen: Soft, Distended - Mild to moderate, Tender - Near incision, no peritoneal signs incisions clean dry and intact Extremities: No clubbing, No cyanosis, No edema Neurological: Cranial nerves II-XII grossly intact Vital Signs Temp Pulse Resp BP Pulse Ox 98.6 F 80 18 154/72 H 96 05/03/18 04:03 05/03/18 04:03 05/03/18 04:03 05/03/18 04:03 05/03/18 04:03 Oxygen Flow Rate (L/min) 2 Oxygen Delivery Method Room Air Weight: 154 lb 12.232 oz Body Mass Index (BMI) 29.2 Intake and Output for Last 24 Hours 05/01/18 05/02/18 05/03/18 23:59 23:59 23:59 Intake Total 1999 / 1999 2197 / 2197 813 / 813 Output Total 140 / 140 1500 / 1500 1000 / 1000 Balance 1860 / 1860 697 / 697 -187 / -187 Laboratory Tests Past 24 Hrs 05/02/18 05/02/18 05/03/18 06:00 06:00 06:02 WBC Pending RBC Pending Hgb Pending Hct Pending MCV Pending MCH Pending MCHC Pending RDW Pending RDW Differential Pending Plt Count Pending Differential Comment SCAN Sodium 139 Potassium 5.1 Chloride 106 Carbon Dioxide 27.0 Anion Gap 6 BUN 13 Creatinine 1.29 H Estim Creat Clear Calc 27.12 Est GFR (MDRD) Af Amer 51 L Est GFR (MDRD) Non-Af 42 L BUN/Creatinine Ratio 10.1 Glucose 135 H Calcium 8.1 L 05/03/18 06:02 WBC RBC Hgb Hct MCV MCH MCHC RDW RDW Differential Plt Count Differential Comment Sodium 141 Potassium 4.2 Chloride 108 H Carbon Dioxide 25.0 Anion Gap 8 BUN 11 Creatinine 1.13 H Estim Creat Clear Calc 30.96 Est GFR (MDRD) Af Amer 60 Est GFR (MDRD) Non-Af 49 L BUN/Creatinine Ratio 9.7 L Glucose 103 Calcium 8.1 L Medical Necessity - Tobacco Use Smoking Status: Former smoker Tobacco Use: Cigarettes Assessment/Plan All Active Problems (Last Reviewed 04/02/18 @ 08:29 by Kylah Sinha) Right upper lobe pulmonary nodule (Acute) Heme positive stool (Acute) Acute blood loss anemia (Acute) 77-year-old female postop day 2 lap converted to open right hemicolectomy for ascending colon adenocarcinoma 1. Patient has been tolerating clears will advance to full's with Ensure. Await flatus to advance diet 2. Good urine output with improvement of creatinine 3. Continue pain control with Tylenol and OxyIR 2.5-5 mg p.o. q 4hr prn pain 4. Encourage I-S use and ambulation in the fuentes 5. DVT prophylaxis Lovenox, PPI Shawnee Cid M.D. Pager: [phone] [facility] [address] [place] [address], [facility], [address] [place] [id number] Office: [phone]
[2018-05-03 06:52] LABS: Scan Indicated on CBC? Y/N YES- FLAGS NOTED
[2018-05-03 07:08] LABS: Differential Comment SCAN
[2018-05-03 09:43] VITALS: BP 143/79; PULSE 102; RESP 16; TEMP 36.9; O2SAT 93
[2018-05-03] MEDS: Enoxaparin 30 MG/0.3 ML Syringe SC (09:56)
[2018-05-03] MEDS: LORazepam 1 MG Tablet PO ×2 (09:56→21:14)
[2018-05-03] MEDS: Docusate Sodium 100 MG Capsule PO ×2 (09:56→21:14)
[2018-05-03] MEDS: Pantoprazole Sodium 40 MG Tablet PO (09:56)
[2018-05-03] MEDS: Ondansetron ODT 4 MG Tablet PO (10:06)
--- NOTE | 2018-05-03 11:09 | NURSING ---
pt up walking hallways at this time.
[2018-05-03 13:34] VITALS: BP 149/69; PULSE 92; RESP 18; TEMP 37; O2SAT 96
[2018-05-03 21:09] VITALS: BP 141/75; PULSE 80; RESP 18; TEMP 37.1; O2SAT 99
[2018-05-03] MEDS: Famotidine 20 MG Tablet 10 MG PO (21:13)
[2018-05-03] MEDS: Losartan Potassium 50 MG Tablet PO (21:14)
--- NOTE | 2018-05-03 21:20 | NURSING ---
pt ambulating in hallway.
[2018-05-04] MEDS: Acetaminophen 500 MG Tablet 1000 MG PO ×4 (00:15→23:23)
[2018-05-04] MEDS: Ensure Surgery 237 ML LIQUID PO (06:07)
[2018-05-04] MEDS: Levothyroxine 75 MCG Tablet PO (06:08)
[2018-05-04 06:09] VITALS: BP 153/75; PULSE 82; RESP 16; TEMP 36.8; O2SAT 94
[2018-05-04 07:27] VITALS: O2SAT 95
--- NOTE | 2018-05-04 07:37 | PN.SURG_ITS ---
Subjective: Tolerating samples, no flatus, ambulating halls, pain controlled - Physical Exam General: Alert, Oriented x3, Cooperative, No apparent distress HEENT: Atraumatic Lungs: Normal air movement Cardiovascular: Regular rate Abdomen: Soft, Distended - Moderate, Tender - Mild near incision, clean dry and intact, no peritoneal signs Extremities: No clubbing, No cyanosis, No edema Vital Signs Temp Pulse Resp BP Pulse Ox 98.3 F 82 16 153/75 H 94 05/04/18 06:09 05/04/18 06:09 05/04/18 06:09 05/04/18 06:09 05/04/18 06:09 Oxygen Flow Rate (L/min) 2 Oxygen Delivery Method Room Air Weight: 154 lb 12.232 oz Body Mass Index (BMI) 29.2 Intake and Output for Last 24 Hours 05/02/18 05/03/18 05/04/18 23:59 23:59 23:59 Intake Total 2197 / 2197 2813 / 2813 300 / 300 Output Total 1500 / 1500 1000 / 1000 Balance 697 / 697 1813 / 1813 300 / 300 Medical Necessity - Tobacco Use Smoking Status: Former smoker Tobacco Use: Cigarettes Assessment/Plan All Active Problems (Last Reviewed 04/02/18 @ 08:29 by Kylah Sinha) Right upper lobe pulmonary nodule (Acute) Heme positive stool (Acute) Acute blood loss anemia (Acute) 77-year-old female postop day 3 lap converted to open right hemicolectomy for ascending colon adenocarcinoma, postop ileus 1. Patient has been tolerating clears will advance to full's with Ensure. Await flatus to advance diet 2. Good urine output 3. Continue pain control with Tylenol and OxyIR 2.5-5 mg p.o. q 4hr prn pain 4. Encourage I-S use and ambulation in the fuentes 5. DVT prophylaxis Lovenox, PPI Shawnee Cid M.D. Pager: [phone] [facility] [address] [place] [address], [facility], [address] [place] [id number] Office: [phone]
--- NOTE | 2018-05-04 08:12 | RAD_ITS ---
STUDY: X-RAY - ABDOMEN/PELVIS REASON FOR EXAM: Female, 77 years old. Abdominal distention TECHNIQUE: Two AP supine views of the abdomen and pelvis. COMPARISON: None. FINDINGS: Normal visualized lung bases. There is an unremarkable bowel gas pattern. Sutures on the right. There is no demonstrated free abdominal air. The visualized liver, spleen and kidneys are grossly normal in size and morphology. Normal soft tissue structures. Degenerative hip changes. RAD/Abdomen Single View (Portable) IMPRESSION: Nonobstructive bowel gas pattern. Electronically Signed: Raymond Phillips MD at 9:52 EST Tel , Service support ,
[2018-05-04 08:58] VITALS: BP 147/71; PULSE 106; RESP 18; TEMP 36.9; O2SAT 96
--- NOTE | 2018-05-04 09:00 | NURSING ---
Nauseated this morning. Has not had breakfast. SBA into bathroom, urinated and then got into wc and Demetri, FACILITY SERVICE MANAGER taking pt down to Radiology for ordered KUB.
--- NOTE | 2018-05-04 09:16 | NURSING ---
Back from Radiology at this time.
[2018-05-04] MEDS: Ondansetron ODT 4 MG Tablet PO (09:19)
[2018-05-04] MEDS: Enoxaparin 30 MG/0.3 ML Syringe SC (09:21)
[2018-05-04] MEDS: Pantoprazole Sodium 40 MG Tablet PO (09:51)
[2018-05-04] MEDS: LORazepam 1 MG Tablet PO ×2 (09:54→20:55)
[2018-05-04] MEDS: Docusate Sodium 100 MG Capsule PO ×2 (11:37→20:54)
[2018-05-04] MEDS: oxyCODONE 5 MG Tablet PO (11:43)
[2018-05-04 15:39] VITALS: BP 124/54; PULSE 80; RESP 18; TEMP 37; O2SAT 94
[2018-05-04 20:47] VITALS: BP 147/64; PULSE 73; RESP 18; TEMP 36.7; O2SAT 94
[2018-05-04] MEDS: Losartan Potassium 50 MG Tablet PO (20:55)
[2018-05-04] MEDS: Famotidine 20 MG Tablet 10 MG PO (20:55)
[2018-05-05 03:23] VITALS: BP 134/78; PULSE 62; RESP 18; TEMP 36.7; O2SAT 95
[2018-05-05] MEDS: Acetaminophen 500 MG Tablet 1000 MG PO (05:09)
[2018-05-05] MEDS: Levothyroxine 75 MCG Tablet PO (05:10)
[2018-05-05 06:50] VITALS: O2SAT 96
[2018-05-05 07:50] LABS: Hematocrit 33.6 % (37-47); Hemoglobin 10.3 g/dl (12.0-15.0); Mean Corp Hgb Conc 30.7 g/gl (32-36); Mean Corpuscular Hgb 24.2 pg (27.0-32.0); Mean Corpuscular Volume 78.9 fL (81-99); Mean Platelet Vol. 8.8 fl (6.2-12.0); Platelet Count 256 K/mm3 (150-450); Red Blood Count 4.26 M/mm3 (4.2-5.4); White Blood Count 5.7 K/mm3 (4.4-11.0)
[2018-05-05 07:59] LABS: Scan Indicated on CBC? Y/N YES- FLAGS NOTED
[2018-05-05 08:06] LABS: Anion Gap 7 (5-15); BUN 17 mg/dL (7-18); BUN/Creat Ratio 15.5 RATIO (10-20); Calcium,Total 9.2 mg/dL (8.5-10.1); Chloride 104 mmol/L (98-107); EST Glomerular Filtration Rate 51 mL/min (>60); Est Glom Filt Rate - Afr Amer 62 mL/min (>60); Estimated Creatinine Clearance 31.81 ml/min; Glucose 107 mg/dL (74-106); Potassium 4.2 mmol/L (3.5-5.1); Sodium Level 138 mmol/L (136-145)
[2018-05-05 08:10] LABS: Differential Comment SCANNED
--- NOTE | 2018-05-05 08:24 | PN.SURG_ITS ---
Subjective: Patient was able to tolerate some chicken noodle soup and applesauce denies any nausea, still denies flatus or bowel movement, abdominal pain controlled with pain meds - Physical Exam General: Alert, Oriented x3, Cooperative, No apparent distress HEENT: Atraumatic Lungs: Normal air movement Abdomen: Soft, Distended - Mild to moderate, Tender - Near incision, incision clean dry and intact Extremities: No clubbing, No cyanosis, No edema Vital Signs Temp Pulse Resp BP Pulse Ox 98.1 F 62 18 134/78 H 96 05/05/18 03:23 05/05/18 03:23 05/05/18 03:23 05/05/18 03:23 05/05/18 06:50 Oxygen Flow Rate (L/min) 2 Oxygen Delivery Method Room Air Weight: 154 lb 12.232 oz Body Mass Index (BMI) 29.2 Intake and Output for Last 24 Hours 05/03/18 05/04/18 05/05/18 23:59 23:59 23:59 Intake Total 2813 / 2813 1310 / 1310 350 / 350 Output Total 1000 / 1000 Balance 1813 / 1813 1310 / 1310 350 / 350 Laboratory Tests Past 24 Hrs 05/05/18 05/05/18 07:20 07:20 WBC 5.7 RBC 4.26 Hgb 10.3 L Hct 33.6 L MCV 78.9 L MCH 24.2 L MCHC 30.7 L RDW Not Reportable RDW Differential Not Reportable Plt Count 256 MPV 8.8 Differential Comment SCANNED Sodium 138 Potassium 4.2 Chloride 104 Carbon Dioxide 27.0 Anion Gap 7 BUN 17 Creatinine 1.10 H Estim Creat Clear Calc 31.81 Est GFR (MDRD) Af Amer 62 Est GFR (MDRD) Non-Af 51 L BUN/Creatinine Ratio 15.5 Glucose 107 H Calcium 9.2 Medical Necessity - Tobacco Use Smoking Status: Former smoker Tobacco Use: Cigarettes Assessment/Plan All Active Problems (Last Reviewed 04/02/18 @ 08:29 by Kylah Sinha) Right upper lobe pulmonary nodule (Acute) Heme positive stool (Acute) Acute blood loss anemia (Acute) 77-year-old female postop day 4 lap converted to open right hemicolectomy for ascending colon adenocarcinoma, postop ileus 1. Patient advanced to transitional yesterday she felt hungry denies any nausea however no bowel movement or flatus 2. Good urine output creatinine is a little improved still a little higher than normal at 1.10 3. Continue pain control with Tylenol and OxyIR 2.5-5 mg p.o. q 4hr prn pain 4. Encourage I-S use and ambulation in the fuentes 5. DVT prophylaxis Lovenox, PPI--hemoglobin stable will restart patient's Coumadin on discharge and have her follow her regular Coumadin dosing Shawnee Cid M.D. Pager: [phone] [facility] [address] [place] [address], Outpatient Pavilion, [address] [place] [address] Office: [phone]
[2018-05-05 09:14] VITALS: BP 120/64; PULSE 94; RESP 18; TEMP 36.8; O2SAT 95
[2018-05-05] MEDS: LORazepam 1 MG Tablet PO (09:25)
[2018-05-05] MEDS: Pantoprazole Sodium 40 MG Tablet PO (09:26)
[2018-05-05] MEDS: Docusate Sodium 100 MG Capsule PO (09:26)
[2018-05-05] MEDS: Enoxaparin 30 MG/0.3 ML Syringe SC (09:26)
--- NOTE | 2018-05-05 10:05 | DCINST_ITS ---
Discharge Diet: - - transitional then ok got to regular May shower in (days): 0 Lifting Restrictions: no lifting > 20 lb Call your doctor if your incision/area has: Continuous Slow Oozing, Sudden Increased Bleeding, Increased Pain/ Swelling, Increased Redness, Foul Smelling Discharge, Swelling at the incision site Call your doctor if you observe: Fever of 101 or Higher Cleanse incision/area with: Soap & Water - no scrub but ok for water to run over Additional Instructions: restart coumadin today with your normally schedule dose and f/u with PCP, ok to continue iron Allergies/Adverse Reactions: Allergies No Known Allergies Allergy (Verified 04/24/18 14:45) Medications to take at Discharge Acetaminophen [Mapap] 500 mg PO PRN PRN 03/28/18 Dicyclomine HCl 20 mg PO TID PRN PRN 03/28/18 Ferrous Sulfate 325 mg PO TID 03/28/18 Lansoprazole 30 mg PO DAILY 03/28/18 Levothyroxine Sodium 75 mcg PO DAILY 03/28/18 Lorazepam [Ativan] 1 mg PO BID 03/28/18 Losartan Potassium 50 mg PO QHS 03/28/18 Ranitidine HCl 75 mg PO QHS 03/28/18 Vitamin B Complex 1 each PO DAILY 04/09/18 Warfarin Sodium [Coumadin] 2 mg PO DAILY 04/09/18 Metronidazole 500 mg PO TID 04/24/18 Neomycin Sulfate 500 mg PO TID 04/24/18 ondansetron HCl 4 mg tablet 4 mg PO TID-QID PRN #5 tab 04/30/18 Primary Care Physician: Edgar Austin MD [Primary Care Provider] - Test Results: Test results from this visit will be discussed in further detail at your follow- up appointment, if applicable. Please Follow Up With: Shawnee Cid MD When: call office for f/u in 2 weeks Proposed Discharge Date: 05/05/18
--- NOTE | 2018-05-05 10:05 | PCM.DC.SUM ---
Discharge Date and Diagnosis Date of Admission: 05/01/18 Date of Discharge: 05/05/18 - Primary Discharge Diagnosis ascending colon adenocarcinoma s/p R hemicolectomy factor V leiden Anemia - Secondary Discharge Diagnosis Chronic Problems (Last Reviewed 04/02/18 @ 08:29 by Kylah Sinha) Iron deficiency anemia (Chronic) GERD (gastroesophageal reflux disease) (Chronic) Hypothyroidism (Chronic) DVT (deep venous thrombosis) (Chronic) factor V leiden IBS (irritable bowel syndrome) (Chronic) Hospital Course and Treatment Operations: None, colectomy - lap to open R hemicolectomy Procedures: None Summary of Care Provided: The patient is a 77 year old F was admitted for R hemicolectomy 05/02/18. Pt remained in the hospital on clears until less nausea and was able to be advanced and did have BM 05/05/18 POD 3. Pt Hb remained fairly stable 11->10.3 with lovenox 30 mg SQ and she was also doing well ambulating halls, pain was controlled w PO meds. Awaiting pathology results. - Physical Exam General: Alert, Oriented x3, Cooperative, No apparent distress HEENT: Atraumatic Lungs: Normal air movement Cardiovascular: Regular rate Abdomen: Soft, Distended - mild, Tender - near incision, c/d/i, no PS Extremities: No clubbing, No cyanosis, No edema Vital Signs Temp Pulse Resp BP Pulse Ox 98.2 F 94 18 120/64 95 05/05/18 09:14 05/05/18 09:14 05/05/18 09:14 05/05/18 09:14 05/05/18 09:14 Oxygen Flow Rate (L/min) 2 Oxygen Delivery Method Room Air Weight: 154 lb 12.232 oz Body Mass Index (BMI) 29.2 Intake and Output for Last 24 Hours 05/03/18 05/04/18 05/05/18 23:59 23:59 23:59 Intake Total 2813 / 2813 1310 / 1310 350 / 350 Output Total 1000 / 1000 Balance 1813 / 1813 1310 / 1310 350 / 350 Laboratory Tests Past 24 Hrs 05/05/18 05/05/18 07:20 07:20 WBC 5.7 RBC 4.26 Hgb 10.3 L Hct 33.6 L MCV 78.9 L MCH 24.2 L MCHC 30.7 L RDW Not Reportable RDW Differential Not Reportable Plt Count 256 MPV 8.8 Differential Comment SCANNED Sodium 138 Potassium 4.2 Chloride 104 Carbon Dioxide 27.0 Anion Gap 7 BUN 17 Creatinine 1.10 H Estim Creat Clear Calc 31.81 Est GFR (MDRD) Af Amer 62 Est GFR (MDRD) Non-Af 51 L BUN/Creatinine Ratio 15.5 Glucose 107 H Calcium 9.2 Discharge Diet: - - transitional then ok got to regular May shower in (days): 0 Call your doctor if your incision/area has: Continuous Slow Oozing, Sudden Increased Bleeding, Increased Pain/ Swelling, Increased Redness, Foul Smelling Discharge, Swelling at the incision site Call your doctor if you observe: Fever of 101 or Higher Cleanse incision/area with: Soap & Water - no scrub but ok for water to run over Home Medications: Medications to take at Discharge Acetaminophen [Mapap] 500 mg PO PRN PRN 03/28/18 Dicyclomine HCl 20 mg PO TID PRN PRN 03/28/18 Ferrous Sulfate 325 mg PO TID 03/28/18 Lansoprazole 30 mg PO DAILY 03/28/18 Levothyroxine Sodium 75 mcg PO DAILY 03/28/18 Lorazepam [Ativan] 1 mg PO BID 03/28/18 Losartan Potassium 50 mg PO QHS 03/28/18 Ranitidine HCl 75 mg PO QHS 03/28/18 Vitamin B Complex 1 each PO DAILY 04/09/18 Warfarin Sodium [Coumadin] 2 mg PO DAILY 04/09/18 Metronidazole 500 mg PO TID 04/24/18 Neomycin Sulfate 500 mg PO TID 04/24/18 ondansetron HCl 4 mg tablet 4 mg PO TID-QID PRN #5 tab 04/30/18 Primary Care Physician: Edgar Austin MD [Primary Care Provider] - Please Follow Up With: Shawnee Cid MD When: call office for f/u in 2 weeks Additional Instructions: restart coumadin today with your normally schedule dose and f/u with PCP, ok to continue iron Disposition: Home Minutes spent on discharge:: 15 Patient Condition:: Good Medical Necessity - Tobacco Use Smoking Status: Former smoker Tobacco Use: Cigarettes Meaningful Use Info Meaningful Use Diagnoses (Choose all that apply): None applicable
--- NOTE | 2018-05-06 16:15 | CASEMGMT ---
RN CM Discharge Follow-up Phone Call: JONEL: Zee Strata: 3 Call Date: 05/06/18 Discharge Date: 05/05/18 Time of Call: 1615 Duration: 1 min Admitting Diagnosis: ERAS, Lap right cedrick colectomy RN CM attempted to completed follow-up phone call after recent hospitalization. No answer, voice message left with return contact information.
== END 2018-05-05 13:05 | disposition home or self-care (01) | DRG 330 ==
LOC: MS2 10:33 → ACINP 10:56 → MS2 05-02 07:14 → MS3 05-03 17:34
PROVIDERS: Admitting Provider Surgery; Family Provider Family Medicine; PCP Family Medicine; Referring Provider Surgery; Visit Provider Surgery
PROC: 0DTF0ZZ Resection of Right Large Intestine, Open Approach (ICD-10-PCS; CPT 44205; principal; 2018-05-01 12:40)
DX: C18.2 Malignant neoplasm of ascending colon (principal); D68.51 Activated protein C resistance; K56.7 Ileus, unspecified; Z53.31 Laparoscopic surgical procedure converted to open procedure; D50.9 Iron deficiency anemia, unspecified; K21.9 Gastro-esophageal reflux disease without esophagitis; E03.9 Hypothyroidism, unspecified; K58.9 Irritable bowel syndrome, unspecified; Z79.01 Long term (current) use of anticoagulants; Z87.891 Personal history of nicotine dependence
CPT/HCPCS: 36415; 36416; 74018; 80048; 82962; 85027; 85610; 88309; 94762; J7030; J7050; J7120; A4216; J2405

== ENCOUNTER → 2018-07-03 15:18 | Outpatient (CLI) | payer MEDICARE, SELFPAY ==
[2018-05-15 13:46] VITALS: BMI 28.5
[2018-05-29 13:09] VITALS: BMI 28.5
--- NOTE | 2018-07-03 15:21 | BI_ITS ---
MAMMOGRAPHY - BILATERAL SCREENING REASON FOR EXAM: Female, 77 years old. Routine annual screening examination. PERTINENT HISTORY: Non-contributory. TECHNIQUE: Digital bilateral breast marco (3D mammographic acquisition) in the CC and MLO projections. 2-D mediolateral oblique (MLO) and craniocaudad (CC) views of both breasts were obtained. CAD: Full Field Digital Mammography with Computer Added Detection was performed. COMPARISON: Comparison is made with prior study dated January 15, 2017 and August 03, 2015. FINDINGS: Breast Composition: There are scattered areas of fibroglandular density. There are no dominant masses or suspicious calcifications. No other significant abnormalities are identified. There has been no significant change since the prior study. BI/SCREENING MAMM (CAD), BILAT IMPRESSION: Stable bilateral screening mammogram. Yearly follow-up mammogram recommended. (A) ASSESSMENT CATEGORY: BIRADS Category 1: Negative. A letter regarding these results will be sent to the patient by the facility within 30 days. Approximately 10% of breast cancers are not detected by mammography. A normal mammogram should not delay biopsy of a clinically suspicious abnormality. [id number] Electronically Signed: Minh May MD at 8:24 EST , Service support ,
== END ==
PROVIDERS: Family Provider Family Medicine; PCP Family Medicine; Referring Provider Internal Medicine Hematology & Oncology; Visit Provider Internal Medicine Hematology & Oncology
DX: Z12.31 Encounter for screening mammogram for malignant neoplasm of breast (principal); C18.9 Malignant neoplasm of colon, unspecified; R91.1 Solitary pulmonary nodule
CPT/HCPCS: 77063; 77067

== ENCOUNTER → 2018-08-09 11:59 | Outpatient (CLI) | payer MEDICARE, SELFPAY ==
[2018-05-15 13:46] VITALS: BMI 28.5
[2018-05-29 13:09] VITALS: BMI 28.5
--- NOTE | 2018-08-09 12:20 | CT_ITS ---
STUDY: CT CHEST WITH CONTRAST REASON FOR EXAM: Female, 77 years old. History of polyp removal. RADIATION DOSAGE (If Supplied By Facility): CTDIvol = ( 9.51 ) mGy, DLP = ( 319.21 ) mGycm TECHNIQUE: Transaxial imaging was performed following intravenous administration of Isovue 300 100 IV. Individualized dose optimization techniques were used for this CT. COMPARISON: None. FINDINGS: There again is mild stranding/scarring worse in the right upper lobe and left lower lobe unchanged since the prior examination. There again is a 4 mm noncalcified nodular density in the right upper lobe seen on image 47 series 4 unchanged since the prior exam. No new infiltrate is seen. There is no demonstrated pleural abnormality. Normal heart and pericardium. Normal mediastinum. Normal hilar regions. Normal enhanced pulmonary arteries. There is atherosclerotic tortuosity of the aortic arch and descending thoracic aorta. There are multi-level degenerative changes of the thoracic spine. There is decrease height of several thoracic vertebrae unchanged since the prior examination. There is no demonstrated acute abnormality of the visualized upper abdomen. CT/Chest WITH Contrast IMPRESSION: 1. Mild stranding/scarring unchanged since prior examination. 2. Persistent 4 mm noncalcified right upper lobe nodule for which a follow-up exam in one year is recommended if the patient is high risk. 3. No new infiltrate is seen. Electronically Signed: Michele Joyce MD at 10:12 EDT Tel , Service support ,
[2018-08-09 12:41] LABS: Absolute Lymphocyte Count 1.29 X10^3/ul (0.83-4.51); Absolute Neutrophil Count 5.4 X10^3/uL (2.0-7.7); Basophil# 0.03 X10^3/uL; Basophil% 0.4 % (0-1); Eosinophil# 0.03 X10^3/uL; Eosinophils% 0.4 % (0-5); Hematocrit 39.3 % (37-47); Hemoglobin 12.1 g/dl (12.0-15.0); Lymphocyte # 1.29 X10^3/ul (4.0); Lymphocyte % 17.2 % (19-41); Mean Corp Hgb Conc 30.8 g/gl (32-36); Mean Corpuscular Hgb 28.5 pg (27.0-32.0); Mean Corpuscular Volume 92.7 fL (81-99); Mean Platelet Vol. 9.7 fl (6.2-12.0); Monocyte# 0.74 X10^3/uL; Monocyte% 9.9 % (0-10); Neutrophil # 5.37 X10^3/uL (2.7-7.7); Neutrophil % 71.6 % (47-70); Platelet Count 221 K/mm3 (150-450); RBC Distribution Width CV 13.7 % (11.6-14.6); RBC Distribution Width SD 44.8 fl (35.1-43.9); Red Blood Count 4.24 M/mm3 (4.2-5.4); White Blood Count 7.5 K/mm3 (4.4-11.0)
[2018-08-09 12:44] LABS: POSITIVE COUNT NO; POSITIVE DIFFERENTIAL NO; POSITIVE MORPHOLOGY NO
[2018-08-09 13:11] LABS: Albumin, Serum 3.7 g/dL (3.2-5.0); BUN 19 mg/dL (7-18); BUN/Creat Ratio 18.4 RATIO (10-20); Creatinine, Serum 1.03 mg/dL (0.55-1.02); EST Glomerular Filtration Rate 55 mL/min (>60); Est Glom Filt Rate - Afr Amer 67 mL/min (>60); Globulin 4.3 g/dL (2.2-4.2); Glucose 103 mg/dL (74-106)
[2018-08-09 13:12] LABS: ALB/GLOB Ratio 0.9 RATIO (0.9-2.4); AST(SGOT) 24 U/L (15-37); Alanine Aminotransfer ALT/SGPT 29 U/L (13-56); Alkaline Phosphatase 89 U/L (45-117); Anion Gap 7 (5-15); Calcium,Total 8.5 mg/dL (8.5-10.1); Chloride 108 mmol/L (98-107); Ferritin 60 ng/mL (8-252); Iron 36 ug/dL (50-170); Iron Binding Capacity,Total 301 ug/dL (250-450); Sodium Level 140 mmol/L (136-145)
[2018-08-09 13:22] LABS: Vitamin B12 225 pg/mL (211-911)
== END ==
PROVIDERS: Family Provider Family Medicine; PCP Family Medicine; Referring Provider Internal Medicine Hematology & Oncology; Visit Provider Internal Medicine Hematology & Oncology
DX: C18.9 Malignant neoplasm of colon, unspecified (principal); D50.9 Iron deficiency anemia, unspecified; R91.1 Solitary pulmonary nodule
CPT/HCPCS: 71260; 80053; 82378; 82607; 82728; 83540; 83550; 85025; Q9967

== ENCOUNTER → 2018-10-25 | Outpatient (CLI) | payer MEDICARE, SELFPAY ==
[2018-08-14 13:00] VITALS: BMI 29.2
[2018-10-25 12:49] LABS: Anion Gap 6 (5-15); BUN 24 mg/dL (7-18); BUN/Creat Ratio 21.2 RATIO (10-20); Calcium,Total 8.8 mg/dL (8.5-10.1); Chloride 108 mmol/L (98-107); Creatinine, Serum 1.13 mg/dL (0.55-1.02); EST Glomerular Filtration Rate 49 mL/min (>60); Est Glom Filt Rate - Afr Amer 60 mL/min (>60); Glucose 102 mg/dL (74-106); Potassium 4.1 mmol/L (3.5-5.1); Sodium Level 140 mmol/L (136-145); Uric Acid 5.2 mg/dL (2.6-6.0)
== END | disposition home or self-care (01) ==
PROVIDERS: Family Provider Family Medicine; PCP Family Medicine; Referring Provider Family Medicine; Visit Provider Family Medicine
DX: M79.674 Pain in right toe(s) (principal)
CPT/HCPCS: 36415; 80048; 84550

== ENCOUNTER → 2018-11-06 | Outpatient (CLI) | payer MEDICARE, SELFPAY ==
[2018-08-14 13:00] VITALS: BMI 29.2
--- NOTE | 2018-11-06 12:15 | CT_ITS ---
STUDY: CT ABDOMEN AND PELVIS WITH CONTRAST REASON FOR EXAM: Female, 77 years old. Status post polypectomy. RADIATION DOSAGE (If Supplied By Facility): CTDIvol = ( 14.61 ) mGy, DLP = ( 1258.64 ) mGycm TECHNIQUE: Transaxial images were obtained from the dome of the diaphragm to the symphysis pubis without oral contrast. 100 ml of Isovue 300 contrast was administered. Sagittal and coronal images were reconstructed. Individualized dose optimization techniques were used for this CT. COMPARISON: 04/17/2018 FINDINGS: The visualized lung bases are clear. The visualized portions of the heart and pericardium are within normal limits. There are no calcified gallstones present. The liver is within normal limits. There are no suspicious hepatic lesions. The spleen is normal in size. The pancreas is within normal limits. The adrenal glands are within normal limits. There are no renal or ureteral stones. There is no hydronephrosis. There is a stable simple cyst in the right kidney. There are no additional renal lesions. Normal visualized stomach. There is no bowel obstruction or inflammation. There are postsurgical changes from a right hemicolectomy. There are subcentimeter right lower quadrant mesenteric lymph nodes, but no lymphadenopathy. The aorta is normal in caliber. There is no abdominal or pelvic free air, free fluid or fluid collection. There are no destructive osseous lesions. There are stable degenerative changes noted in the spine. CT/Abdomen/Pelvis W IV Cont ONLY IMPRESSION: Status post right hemicolectomy. Subcentimeter right lower quadrant mesenteric lymph nodes, but no lymphadenopathy. Continued follow-up is recommended. No bowel obstruction or inflammation. Electronically Signed: Abdon Hector, at 19:25 EDT Tel , Service support ,
--- NOTE | 2018-11-06 12:15 | CT_ITS ---
STUDY: CT CHEST WITH CONTRAST REASON FOR EXAM: Female, 77 years old. Pulmonary nodule RADIATION DOSAGE (If Supplied By Facility): CTDIvol = ( 14.61 ) mGy, DLP = ( 1258.64 ) mGycm TECHNIQUE: Transaxial imaging was performed following intravenous administration of 100 ml of Isovue 300 contrast material. Coronal and sagittal reformatted images were created. Individualized dose optimization techniques were used for this CT. COMPARISON: 04/17/2018 and 08/09/2018 FINDINGS: There is dependent atelectasis noted in the lung bases. There are no pulmonary infiltrates or pleural effusions. There is a stable 4 mm nodule in right upper lobe (image 42 series 6). There is no pneumothorax. The heart and pericardium are within normal limits. There is no thoracic lymphadenopathy. There is no evidence of thoracic aortic aneurysm. Images through the upper abdomen demonstrate no significant abnormality. There are no destructive osseous lesions. There are stable degenerative changes noted in the spine. CT/Chest WITH Contrast IMPRESSION: Stable 4 mm nodule in the right upper lobe. No new nodules or masses. A follow-up CT in one year is recommended. Electronically Signed: Abdon Hector, at 18:59 EDT Tel , Service support ,
[2018-11-06 12:24] LABS: Absolute Lymphocyte Count 1.17 X10^3/ul (0.83-4.51); Absolute Neutrophil Count 7.7 X10^3/uL (2.0-7.7); Basophil# 0.01 X10^3/uL; Basophil% 0.1 % (0-1); Eosinophil# 0.09 X10^3/uL; Eosinophils% 0.9 % (0-5); Hematocrit 40.4 % (37-47); Hemoglobin 12.7 g/dl (12.0-15.0); Lymphocyte # 1.17 X10^3/ul (4.0); Lymphocyte % 11.9 % (19-41); Mean Corp Hgb Conc 31.4 g/gl (32-36); Mean Corpuscular Hgb 27.9 pg (27.0-32.0); Mean Corpuscular Volume 88.8 fL (81-99); Mean Platelet Vol. 9.4 fl (6.2-12.0); Monocyte# 0.79 X10^3/uL; Monocyte% 8.1 % (0-10); Neutrophil # 7.66 X10^3/uL (2.7-7.7); Neutrophil % 78.2 % (47-70); POSITIVE COUNT NO; POSITIVE DIFFERENTIAL NO; POSITIVE MORPHOLOGY NO; Platelet Count 257 K/mm3 (150-450); RBC Distribution Width CV 15.2 % (11.6-14.6); RBC Distribution Width SD 49.3 fl (35.1-43.9); Red Blood Count 4.55 M/mm3 (4.2-5.4); White Blood Count 9.8 K/mm3 (4.4-11.0)
[2018-11-06 12:44] LABS: ALB/GLOB Ratio 0.8 RATIO (0.9-2.4); AST(SGOT) 38 U/L (15-37); Alanine Aminotransfer ALT/SGPT 48 U/L (13-56); Albumin, Serum 3.4 g/dL (3.2-5.0); Alkaline Phosphatase 85 U/L (45-117); Anion Gap 7 (5-15); BUN 22 mg/dL (7-18); BUN/Creat Ratio 18.8 RATIO (10-20); Calcium,Total 8.6 mg/dL (8.5-10.1); Chloride 109 mmol/L (98-107); Creatinine, Serum 1.17 mg/dL (0.55-1.02); EST Glomerular Filtration Rate 47 mL/min (>60); Est Glom Filt Rate - Afr Amer 57 mL/min (>60); Ferritin 69 ng/mL (8-252); Glucose 136 mg/dL (74-106); Iron 48 ug/dL (50-170); Iron Binding Capacity,Total 299 ug/dL (250-450); PERCENT IRON SATURATION 16.1 % (15.0-55.0); Potassium 4.4 mmol/L (3.5-5.1); Protein, Total 7.4 g/dL (6.4-8.2); Sodium Level 142 mmol/L (136-145)
[2018-11-06 20:06] LABS: Xtra Tube EP Lab EXTRA TUBE
[2018-11-07 09:53] LABS: Carcinoembryonic Antigen 9.1 ng/mL (0.0-4.7)
== END | disposition home or self-care (01) ==
PROVIDERS: Family Provider Family Medicine; PCP Family Medicine; Referring Provider Internal Medicine Hematology & Oncology; Visit Provider Internal Medicine Hematology & Oncology
DX: R91.1 Solitary pulmonary nodule (principal); D50.9 Iron deficiency anemia, unspecified; C18.9 Malignant neoplasm of colon, unspecified
CPT/HCPCS: 36415; 71260; 74177; 80053; 82378; 82728; 83540; 83550; 85025; Q9967

== ENCOUNTER 2018-11-20 09:35 | Day surgery (SDC) | payer MEDICARE, SELFPAY ==
[2018-11-13 13:07] VITALS: BMI 30.2
[2018-11-20 05:05] VITALS: BP 143/80; BP 151/66; PULSE 81; RESP 16; O2SAT 95
[2018-11-20 10:02] VITALS: BP 151/66; PULSE 94; RESP 18; TEMP 37.1; O2SAT 96; BMI 28.8
--- NOTE | 2018-11-20 10:22 | HP.PCM_ITS ---
History of Present Illness Date of Admission: 11/20/18 The patient is a 77 year old F presents for diagnostic colonoscopy. Patient was diagnosed with ascending adenocarcinoma late last year and had a right hemicolectomy in April 2018. Patient has been following with oncology and has had an elevated CEA. Patient CEA prior to the right cedrick-colectomy was 7.3 afterwards it has been 8.4, 8.0, 9.1. Patient had 0 out of 13 nodes positive during the right hemicolectomy. CT abdomen pelvis was done which did not show anything acute, and CT of the chest showed a stable 4 mm nodule in the right upper lobe no new nodules.. Patient has complained of some lower abdominal discomfort and her primary care has put her on levofloxacin she is taking about 5 days of the 10. Patient denies any nausea or vomiting. Patient was having normal bowel function daily denies any blood but did get constipated with the antibiotic. She did stop her Coumadin on . Past Medical History Past Medical History (Chronic Problems): Chronic Problems (Last Reviewed 11/13/18 @ 13:03 by Codie Khan) Colon cancer (Chronic) Right upper lobe pulmonary nodule (Chronic) March 2018: 4 mm nodule too small to biopsy and too small for PET, Iron deficiency anemia (Chronic) GERD (gastroesophageal reflux disease) (Chronic) Hypothyroidism (Chronic) DVT (deep venous thrombosis) (Chronic) IBS (irritable bowel syndrome) (Chronic) Medical History: Medical History (Last Reviewed 11/13/18 @ 13:03 by Codie Khan) Heme positive stool (Acute) R19.5 Acute blood loss anemia (Acute) D62 Iron deficiency anemia (Chronic) D50.9 SOB (shortness of breath) (Inactive) R06.02 GERD (gastroesophageal reflux disease) (Chronic) K21.9 Hypothyroidism (Chronic) E03.9 DVT (deep venous thrombosis) (Chronic) I82.409 IBS (irritable bowel syndrome) (Chronic) K58.9 Allergies alendronate sodium [From Fosamax] Adverse Reaction (Severe, Verified 11/13/18 13:03) Other mouth rash Home Medications: Ambulatory Orders Medication Instructions Recorded Acetaminophen [Mapap] 500 mg PO PRN PRN 03/28/18 Lansoprazole 30 mg PO DAILY 03/28/18 Levothyroxine Sodium 75 mcg PO DAILY 03/28/18 Lorazepam [Ativan] 1 mg PO BID 03/28/18 Losartan Potassium 50 mg PO QHS 03/28/18 Ranitidine HCl 75 mg PO QHS 03/28/18 Warfarin Sodium [Coumadin] 2 mg PO DAILY 04/09/18 Polyethylene Glycol 3350 [Miralax] 17 gm PO DAILY PRN 05/15/18 ferrous sulfate 325 mg (65 mg 325 mg PO DAILY tab 05/29/18 iron) tablet Duloxetine Hcl [Cymbalta] 30 mg PO DAILY 11/18/18 Levofloxacin [Levaquin] 500 mg PO DAILY 11/18/18 Surgical History: Surgical History (Last Reviewed 11/13/18 @ 13:03 by Codie Khan) History of surgical removal of ganglion cyst Z98.890 S/P colectomy Z90.49 05/01/18 S/P hysterectomy Z90.710 Surgical History: hysterectomy, - - EGD, ganglion cyst removal, basal cell excision Smoking Status: Former smoker Tobacco Use: Non-smoker - *Family History Maternal Family History: Family History (Last Reviewed 11/13/18 @ 13:03 by Codie Khan) Father Emphysema lung Mother Hypertension Sister Lung cancer Pancreatic cancer Brother Pancreatic cancer History Items: Diabetes, Heart Disease, Hypertension Paternal Family History: Family History (Last Reviewed 11/13/18 @ 13:03 by Codie Khan) Father Emphysema lung Mother Hypertension Sister Lung cancer Pancreatic cancer Brother Pancreatic cancer History Items: Heart Disease, Hypertension Review of Systems Constitutional: Denies: Anorexia, Fever HEENT: Denies: Difficulty Swallowing Cardiovascular: Denies: Chest Pain Respiratory: Denies: Cough Gastrointestinal: Reports: Abdominal Pain, Constipation VTE Information - Inpt Only VTE Present on Admission: Yes VTE Mechan Device Prophylaxis: SCD's - Physical Exam General: Alert, Oriented x3, Cooperative, No apparent distress HEENT: Atraumatic Lungs: Normal air movement Cardiovascular: Regular rate Abdomen: Soft, Non Tender - No peritoneal signs, Non-Distended Extremities: No clubbing, No cyanosis, No edema Vital Signs Temp Pulse Resp BP Pulse Ox 98.8 F 94 18 151/66 H 96 11/20/18 10:02 11/20/18 10:02 11/20/18 10:02 11/20/18 10:02 11/20/18 10:02 Oxygen Delivery Method Room Air Weight: 152 lb 12.485 oz Body Mass Index (BMI) 28.8 Assessment/Plan All Active Problems (Last Reviewed 11/13/18 @ 13:03 by Codie Khan) Heme positive stool (Acute) Acute blood loss anemia (Acute) 77-year-old female with history of ascending adenocarcinoma status post right hemicolectomy May 01, 2018, elevated CEA I have discussed the above with the patient. I have offered the patient diagnostic colonoscopy for evaluation. I have explained the risks/benefits of the procedure and described the procedure. I have discussed the risks with the patient, including but not limited to: infection, bleeding, perforation of the GI tract requiring emergency surgery, inability to complete the procedure, injury to any internal organs, complications of anesthesia, etc. - the patient understands and agrees to proceed. I have answered all the patient's questions to the patient's satisfaction and the patient has no further questions. Shawnee Cid M.D. Pager: [phone] [facility] [address] [place] [address], [address] [place] [address] Office: [phone]
--- NOTE | 2018-11-20 11:00 | COLBX_PTH ---
PATIENT: EVELYN BARBER LOC: EN U#:[id number] AGE/SX: 77/F ROOM: RE11/20/[address]: Dr. Shawnee Cid MD : 1940 BED: DIS: 11/20/2018 SPEC #: [id number] RECD: 11/20/18 11:17 STATUS: TIANA STEPHANIE #: [id number] KATHRINE: 11/20/18 11:[address]: Shawnee Cid DEPT: SURGICAL PATHOLOGY RECD BY: Roosevelt Wise ENTERED: 11/20/18 13:10 SP TYPE: COLON BX OTHR DR: Dr. Edgar Austin MD Tissues: Rectum, NOS Procedures: Surgery Specimen Level IV HEADER OPERATION: Colonoscopy (MAC) PRE-OP DIAGNOSIS: Hem positive stool, blood loss anemia TISSUE SUBMITTED: Rectal polyp biopsy MICROSCOPIC DIAGNOSIS Rectal polyp biopsy: Unremarkable polypoidal rectal mucosa with features somewhat suggestive of mucosal fold or early prolapse. Clinical correlation is indicated. FA:tha 11/21/18 MICROSCOPIC DESCRIPTION Slides are reviewed. GROSS DESCRIPTION Received in fixative is one container labeled with the patient's name and designated rectal polyp biopsy. The specimen consists of a single pinkish-jorge biopsy fragment measuring 2 mm in greatest dimension. The specimen is totally submitted in one cassette. / FA:tha 11/20/18 TC:5 CPT: 96757
[2018-11-20 11:03] VITALS: BP 141/80; BP 151/66; PULSE 80; RESP 16; TEMP 36.4; O2SAT 96
--- NOTE | 2018-11-20 11:07 | OP.ENDO_ITS ---
11/20/2018 Edgar Austin MD [address] [place] [address] Re : Colonoscopy procedure for Dary Mathew Dear Dr. Austin This procedure was performed on Tuesday, November 20, 2018. My impressions and recommendations are as follows: Impressions : - Diverticulosis in the sigmoid colon and in the descending colon. - The examination was otherwise normal on direct and retroflexion views. - small rectal polyp. Recommendations : - Discharge patient to home. - High fiber diet. - Continue present medications. - Repeat colonoscopy in 1 year for surveillance based on personal history of colon cancer. - Await pathology results. My findings are described in the full procedure note, which is enclosed. If I can be of further assistance, please feel free to contact me at Doctor phone number(s): , Work: . Sincerely, MD Shawnee Luna MD 11/20/2018 11:06:47 AM This report has been signed electronically.
[2018-11-20 11:10] VITALS: BP 150/79; BP 151/66; PULSE 91; RESP 16; O2SAT 97
[2018-11-20 11:15] VITALS: BP 151/66; BP 163/77; PULSE 85; RESP 16; TEMP 36.3; O2SAT 96
[2018-11-20 11:35] VITALS: BP 151/66
== END 2018-11-20 11:44 | disposition home or self-care (01) ==
LOC: EN 09:36 → AC 09:38
PROVIDERS: Family Provider Family Medicine; PCP Family Medicine; Referring Provider Family Medicine; Visit Provider Surgery
PROC: 0DJD8ZZ Inspection of Lower Intestinal Tract, Via Natural or Artificial Opening Endoscopic (ICD-10-PCS; CPT 45378; principal; 2018-11-20 10:55)
DX: K62.1 Rectal polyp (principal); K57.30 Diverticulosis of large intestine without perforation or abscess without bleeding; D62 Acute posthemorrhagic anemia; K21.9 Gastro-esophageal reflux disease without esophagitis; E03.9 Hypothyroidism, unspecified; K58.9 Irritable bowel syndrome, unspecified; F41.9 Anxiety disorder, unspecified; Z90.49 Acquired absence of other specified parts of digestive tract; Z85.038 Personal history of other malignant neoplasm of large intestine; Z86.718 Personal history of other venous thrombosis and embolism; Z87.891 Personal history of nicotine dependence; Z79.01 Long term (current) use of anticoagulants; Z79.899 Other long term (current) drug therapy
CPT/HCPCS: 45380; 88305; J7120

== ENCOUNTER → 2018-11-27 | Outpatient (CLI) | payer MEDICARE, SELFPAY ==
[2018-11-20 10:02] VITALS: BMI 28.8
--- NOTE | 2018-11-27 14:01 | RAD_ITS ---
STUDY: X-RAY - RIGHT KNEE REASON FOR EXAM: Female, 77 years old. Medial knee pain TECHNIQUE: 4 view(s) of the knee. COMPARISON: Report of previous study of 02/04/2016 FINDINGS: There is demineralization of the visualized distal femur. There is demineralization of the tibia and fibula. Normal proximal tibiofibular articulation. There is mild degenerative arthrosis of the medial femorotibial compartment. There is chondrocalcinosis of the lateral meniscus. There is mild degenerative arthrosis of the patellofemoral articulation. The soft tissue structures are unremarkable. RAD/Knee 4 or More Views IMPRESSION: There is joint space narrowing of the medial knee compartment. There is chondrocalcinosis of the lateral meniscal cartilage. The bones are osteopenic. There is no evidence of fracture, dislocation, free intra-articular calcifications, or suprapatellar effusion. Electronically Signed: Manuel Melton MD at 19:27 EDT , Service support ,
--- NOTE | 2018-11-27 14:01 | RAD_ITS ---
STUDY: X-RAY - LEFT KNEE REASON FOR EXAM: Female, 77 years old. Increasing medial knee pain TECHNIQUE: 4 view(s) of the knee. COMPARISON: None. FINDINGS: There is demineralization of the visualized distal femur. There is demineralization of the tibia and fibula. Normal proximal tibiofibular articulation. There is mild degenerative arthrosis of the medial femorotibial compartment. There is mild degenerative arthrosis of the lateral femorotibial compartment. There is mild degenerative arthrosis of the patellofemoral articulation. There is chondrocalcinosis of the medial and lateral meniscal cartilage. RAD/Knee 4 or More Views IMPRESSION: Mild tricompartmental arthritic changes. 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 Electronically Signed: Manuel Melton MD at 19:34 EDT , Service support ,
== END | disposition home or self-care (01) ==
LOC: MTRAD 14:00
PROVIDERS: Family Provider Family Medicine; PCP Family Medicine; Referring Provider Family Medicine; Visit Provider Family Medicine
DX: M17.0 Bilateral primary osteoarthritis of knee (principal)
CPT/HCPCS: 73564

== ENCOUNTER 2018-12-18 12:00 | Outpatient (RCR) | payer MEDICARE, SELFPAY ==
--- NOTE | 2018-12-06 14:06 | HP.PTEVAL ---
Patient's Visit Information EVELYN BARBER is a 77 year old F referred to Physical Therapy by Tamara Sneed MD with a diagnosis of B knee OA. Date of Evaluation: 12/06/18 Physical Therapist: Jhonny Gusman PT, ATC - Visit Plan Frequency: 2x /Week Duration: 1 Week Plan: Issue and instruct on HEP of B LE stretching and strengthening. - Subjective Findings: Pt reports B knees have been sore for several months. Pt reports her pain used to come and go, but is now constant in nature. Pt reports she has had xrays, which revealed significant OA. Pt reports her doctor wants her to try PT for now to try and control her pain and strengthen her knees. Pt reports she had a cancerous pulip removed approximately 7 months ago. Pt reports she has the most pain when she attempts to stand up sfter sitting for a long period of time. Pt reports she is able to negotiate stairs, but has to go one step at a time. Pt reports meds and CP help some with her pain. No sleep difficulty secondary to pain. 0/10 pain at rest, 9/10 pain at worst (sit to stand transfers) - Pain B knees Pain Intensity (Out of 10): 0 Pain Intensity Range: 9 - Objective Neuro: B UE sensation is WNL to light touch. Palpation: Pain along B medial knee lines. Pt has crepitus with AROM. Minor swelling noted bilat. Girth at joint line: L knee 44.5 cm, R knee 43 cm. ROM: L knee 0-10-105; R knee 0-10-105. MMT: R knee 5/5 while L knee is 4+/5 - Goals Goal 1:: I with HEP Goal Time Frame: 1 Week - Rehabilitation Potential Physical Therapy Diagnosis: B knee pain, weakness, and limited ROM secondary to B knee OA Rehabilitation Potential: Excellent - Anticipated Interventions Patient/Client Instruction: Educate patient on: Condition, Plan of Care For the Purpose of:: To improve self management Therapeutic Exercise to Include: Strength training, Endurance training, Balance training, Flexibilty training, Dynamic Lumbar Stabilization For the Purpose of:: To decrease pain, To increase ROM, To improve muscle performance and motor function Cryotherapy (ice pack, ice massage): Yes For the Purpose of:: To decrease pain Thank you for the opportunity to evaluate your patient. For Medicare and Medicare HMO plans, please review the plan of care and approve it. It will need to be FAXED BACK to us at [phone] for Medicare purposes. For Medicare only, by signing this I certify the plan of care. Please let me know if there are questions or concerns regarding this plan of care. Physician Signature: Date:
--- NOTE | 2018-12-18 12:32 | HP.PTDCSUM ---
HP - PT D/C Summary It has been my pleasure to treat EVELYN BARBER under orders from Tamara Sneed MD, for the diagnosis of B knee OA for a total of 3 visit(s). Discharge Date: Please see the following information for a summary of their discharge status. - Subjective Subjective: Pt reports her HEP is going well and she feels ready for discharge - Pain B knees Pain Intensity (Out of 10): 0 - Overall Improvement % Improvement: 60 - Objective Objective/Function: Pt is now I with HEP. Rx goals achieved - Goals Goal 1:: I with HEP Goal Progress: Goal Met - Plan Plan: Discharge - D/C Information If there are questions or concerns regarding this patient's physical therapy, please feel free to call me at [phone]. Thank you for the referral of this patient. Sincerely, Jhonny Gusman, PT, ATC
== END 2018-12-18 17:11 | disposition home or self-care (01) ==
LOC: PT 12:00
PROVIDERS: Family Provider Family Medicine; PCP Family Medicine; Referring Provider Family Medicine; Visit Provider Family Medicine
DX: M17.10 Unilateral primary osteoarthritis, unspecified knee (principal)
CPT/HCPCS: 97110; 97161; 97530

== ENCOUNTER → 2019-02-11 | Outpatient (CLI) | payer MEDICARE, SELFPAY ==
[2019-02-05 13:16] VITALS: BMI 29.6
--- NOTE | 2019-02-11 07:08 | MRI_ITS ---
STUDY: MRI RIGHT KNEE REASON FOR EXAM: Female, 78 years old. Knee pain TECHNIQUE: Standardized fat and water weighted pulse sequences were obtained in all 3 orthogonal planes. COMPARISON: None. FINDINGS: 1 cm trizonal flap tear of the posterior horn the medial meniscus extending to the inferior surface. There is diffuse, greater than 50% thickness articular cartilage loss of the medial femorotibial compartment. Normal medial femoral condyle and tibial plateau. Associated medial capsulitis per Normal medial collateral ligamentous complex (MCL). Normal distal semimembranosus, gracilis and semitendinosus tendons. Normal lateral meniscus. Normal hyaline cartilage of the lateral femorotibial compartment. Normal lateral femoral condyle and tibial plateau. Normal proximal tibiofibular articulation. Normal lateral collateral (fibular) ligament. Normal popliteus tendon. Normal biceps femoris tendon. Normal anterior cruciate ligament (ACL). Normal posterior cruciate ligament (PCL). Normal congruent patellofemoral articulation. Grade III chondromalacia blistering of the lateral facet of patella and grade III chondromalacia corrosion of the median ridge of the patella with some subchondral edema. Normal medial and lateral patellar retinaculum. Normal quadriceps tendon. Normal patellar tendon. Normal Hoffa's fat pad. There is no joint effusion. The soft tissues are unremarkable. The otherwise visualized osseous structures are unremarkable. MRI/Lower Ext Joint Only (Routine) IMPRESSION: 1. 1 cm trizonal flap tear of the posterior horn of the medial meniscus extending to the inferior surface with moderate chondromalacia and medial capsulitis. 2. Mild chondromalacia of the patella with some subchondral edema of the median ridge. Electronically Signed: Wilson Nguyen MD at 8:35 EDT Tel , Service support ,
== END | disposition home or self-care (01) ==
LOC: MRI 07:06
PROVIDERS: Family Provider Family Medicine; PCP Family Medicine; Referring Provider Family Medicine; Visit Provider Family Medicine
DX: M25.569 Pain in unspecified knee (principal)
CPT/HCPCS: 73721

== ENCOUNTER → 2019-03-24 | Outpatient (CLI) | payer MEDICARE, SELFPAY ==
[2019-02-05 13:16] VITALS: BMI 29.6
[2019-03-24 12:52] LABS: Anion Gap 4 (5-15); BUN 31 mg/dL (7-18); Chloride 108 mmol/L (98-107); Creatinine, Serum 1.07 mg/dL (0.55-1.02); EST Glomerular Filtration Rate 53 mL/min (>60); Est Glom Filt Rate - Afr Amer 64 mL/min (>60); Glucose 118 mg/dL (74-106); Sodium Level 139 mmol/L (136-145); Thyroid Stim Hormone (TSH) 0.96 uIU/mL (0.358-3.74)
== END | disposition home or self-care (01) ==
LOC: MFPLAB 11:05
PROVIDERS: Family Provider Family Medicine; PCP Family Medicine; Visit Provider Family Medicine
DX: E03.9 Hypothyroidism, unspecified (principal); I10 Essential (primary) hypertension
CPT/HCPCS: 36415; 80048; 84443

== ENCOUNTER 2019-07-16 07:09 | Day surgery (SDC) | payer MEDICARE, SELFPAY ==
--- NOTE | 2019-06-27 11:00 | HP_ITS ---
Intake Vital Signs 06/27/19 Height 5 ft 1 in 06/27/19 Weight: 156 lb 2 oz 06/27/19 BMI 29.5 06/27/19 BP 171/84 H 06/27/19 Blood Pressure Location Rt brachial 06/27/19 Position Sitting 06/27/19 Respiration 20 H 06/27/19 Pulse 83 06/27/19 Pulse Oximetry (%) 98 Intake Visit Reasons: Gastroesophageal reflux disease (GERD) Chief Complaint: GERD Heel Molder Required: No Is patient in pain?: No Allergies alendronate sodium [From Fosamax] Adverse Reaction (Severe, Verified 06/27/19 13:44) Other Medications Acetaminophen [Mapap] 500 mg PO PRN PRN 03/28/18 [History Confirmed 06/27/19] Lansoprazole 30 mg PO DAILY 03/28/18 [History Confirmed 06/27/19] Levothyroxine Sodium 75 mcg PO DAILY 03/28/18 [History Confirmed 06/27/19] Lorazepam [Ativan] 1 mg PO BID 03/28/18 [History Confirmed 06/27/19] Losartan Potassium 50 mg PO QHS 03/28/18 [History Confirmed 06/27/19] Warfarin Sodium [Coumadin] 2 mg PO DAILY 04/09/18 [History Confirmed 06/27/19] Is last menstrual period known: No Post menopausal: Yes Patient : No PFSH Medical History (Updated 06/27/19 @ 13:42 by Anitra Bruno) Heme positive stool (Acute) Acute blood loss anemia (Acute) Iron deficiency anemia (Resolved) SOB (shortness of breath) (Inactive) GERD (gastroesophageal reflux disease) (Chronic) Hypothyroidism (Chronic) DVT (deep venous thrombosis) (Chronic) IBS (irritable bowel syndrome) (Chronic) Anxiety (Acute) HTN (hypertension) (Chronic) Surgical History (Updated 06/27/19 @ 13:42 by Anitra Bruno) Bilateral cataracts (Acute) History of surgical removal of ganglion cyst (Acute) S/P colectomy (Acute) S/P hysterectomy (Acute) menicus right knee repair (Acute) Family History (Updated 06/27/19 @ 13:43 by Anitra Bruno) Father Emphysema lung Heart disease Mother Hypertension CVA (cerebral vascular accident) Sister Lung cancer Pancreatic cancer Brother Pancreatic cancer Social History (Updated 06/27/19 @ 14:11 by Shawnee Cid MD) Smoking Status: Former smoker alcohol intake: never HPI HPI HPI: EVELYN BARBER, is a 78 F who presents to the office today for HPI HPI Surgical H&P: Yes HPI: EVELYN BARBER, is a 78 F who presents to the office today for reflux/heartburn. past medical history for colon cancer status post right hemicolectomy in 2018. Patient has had a rising CEA repeat colonoscopy has not shown any obvious lesions and PET scan was also negative. Patient has been on Prevacid as well as Zantac for quite a while which initially did seem to work however patient states that she may have also just kind ignored that she has had this bad taste in her mouth for most of that time. In January she did get an upset stomach and did stop the Zantac at that time after hearing about the recall. Patient last had an EGD in late 2017 which showed some mild gastritis, inflammation GE junction negative for H. pylori small hiatal hernia. Patient previously tried Nexium however she got a bellyache from it. Patient has also been on Carafate which she states does not help along with Tums. Patient denies having epigastric pain or burning burning in her upper stomach occasionally has food feeling like it is catching in her throat that she typically has the bad taste in her mouth which does not go away even with the Prevacid. Patient has never tried Protonix or omeprazole previously. ROS General General: Yes colon cancer; no weight change, fatigue, breast cancer or weakness HEENT HEENT: Yes eye surgery; no difficulty swallowing, eye injury, swollen glands or hoarseness Endo Endocrine: Yes thyroid disease; no diabetes mellitus, thyroid cancer, Hair loss, heat intolerance or cold intolerance Musc Musculoskeletal: Yes arthritis; no back problems, rheumatoid arthritis, gout or joint pain Cardio Cardiovascular: Yes high blood pressure; no murmur, pacemaker, heart disease, atrial fibrillation, heart attack, heart stent, palpitations, shortness of breat with exertion or chest pain Psych Psychiatric: Yes anxiety; no depression or hearing voices Resp Respiratory: No shortness of breath, No sleep apnea, No cough, No COPD, No asthma, No emphysema, No wheezing Gastro Gastrointestinal: Yes abdominal pain, Yes nausea or vomiting, Yes diarrhea, Yes constipation, No blood in stool, Yes acid reflux, Yes hemorrhoids, No ulcers, No gallbladder problem, No black,tarry stools Binh Hematologic: Yes blood thinners, No blood disorders, No bleeding, No anemia, Yes blood clots Neuro Neurologic: No weakness Exam Const General: cooperative, comfortable, no acute distress Resp Effort & Inspection: normal respiratory effort Cardio Rate: regular rate Heart Sounds: no murmurs GI Inspection: non-distended, incision (Well-healed midline incision) Palpation: soft, no guarding, nontender Assessment & Plan 1. GERD (gastroesophageal reflux disease) K21.9 Plan Patient is agreeable to try Protonix 40 mg p.o. daily. Did discuss with patient that initially takes 1 to 2 days to work okay to take Pepcid daily during those first 2 days. Will have patient stop the Prevacid. I have discussed the above with the patient. I have offered the patient EGD for evaluation. Patient will need to stop her Coumadin 5 days prior to EGD. I have explained the risks/benefits of the procedure and described the procedure. I have discussed the risks with the patient, including but not limited to: infection, bleeding, perforation of the GI tract requiring emergency surgery, inability to complete the procedure, injury to any internal organs, complications of anesthesia, etc. - the patient understands and agrees to proceed. I have answered all the patient's questions to the patient's satisfaction and the patient has no further questions. Shawnee Cid M.D. Pager: [phone] [facility] [address] [place] [address], [address] [place] [address] Office: [phone] Plan Detail Follow Up We will schedule EGD Coding Level of Care Code Off vis,est,level 3 Diagnoses GERD (gastroesophageal reflux disease) K21.9 06/27/19 1411 <Electronically signed by Shawnee Hanks am, MD> Date _ Shawnee Cid MD I have examined the patient the following changes are noted: Patient still states she has taste in her mouth unable to really describe it even after eating last night, patient states that it can really depends on what she eats as far as her abdominal pain.
[2019-06-27 13:45] VITALS: BMI 22.0
[2019-07-16 07:27] VITALS: BP 149/82; PULSE 86; RESP 16; TEMP 36.6; O2SAT 97; BMI 31.1
[2019-07-16 07:31] LABS: Prothrombin Time Fingerstick 15.1 SEC (11.9-14.4)
[2019-07-16] MEDS: Lactated Ringers 1,000 ML 100 ML IV (07:42)
--- NOTE | 2019-07-16 08:00 | IMM_PTH ---
PATIENT: EVELYN BARBER LOC: [facility] U#:[id number] AGE/SX: 78/F ROOM: RE07/16/[address]: Dr. Shawnee Cid MD : 1940 BED: DIS: 07/16/2019 SPEC #: [id number] RECD: 07/16/19 12:18 STATUS: TIANA REQ #: [id number] KATHRINE: 07/16/19 08:[address]: Shawnee Cid DEPT: IMMUNOHISTOCHEMISTRY RECD BY: Guerline Barros ENTERED: 07/16/19 12:19 SP TYPE: IMMUNO OTHR DR: Dr. Edgar Austin MD Tissues: A - Stomach, NOS Procedures: H Pylori (initial) PHYSICIAN & INSTITUTION [place] [address] SPECIMEN INFORMATION: Tissue Source: A - Antrum biopsy Clinical Info: GERD Specimen Number: [id number] CPT code: 63118 METHODOLOGY: Deparaffinized sections of prefer/formalin-fixed tissue or PAP/DQ stained slides are incubated with monoclonal/polyclonal antibodies/oligonucleotide probes. Localization is made via biotin free immunoperoxidase method. Appropriate controls are performed and reacted as expected. Results on target cell population are indicated in the following table: RESULTS: ANTIBODY / CLONE RESULT Block A H Pylori (polyclonal) negative These tests were developed and their performance characteristics determined by [facility]. They may not have been cleared or approved by the U.S. Food and Drug Administration. The FDA has determined that such clearance or approval is not necessary. INTERPRETATION: A. Antrum biopsy: Negative for Helicobacter pylori organisms. SJ:tha 07/17/19
--- NOTE | 2019-07-16 08:00 | GASB_PTH ---
PATIENT: EVELYN BARBER LOC: [facility] U#:[id number] AGE/SX: 78/F ROOM: RE07/16/[address]: Dr. Shawnee Cid MD : 1940 BED: DIS: 07/16/2019 SPEC #: [id number] RECD: 07/16/19 10:35 STATUS: TIANA STEPHANIE #: [id number] KATHRINE: 07/16/19 08:[address]: Shawnee Cid DEPT: SURGICAL PATHOLOGY RECD BY: Roosevelt Wise ENTERED: 07/16/19 10:42 SP TYPE: Gastric Bx OTHR DR: Dr. Edgar Asutin MD Tissues: A - Gastric mucous membrane B - Gastric mucous membrane C - Gastric mucous membrane Procedures: Special Stain Group II Surgery Specimen Level IV Alcian Blue/PAS (control) HEADER OPERATION: EGD ([facility]) PRE-OP DIAGNOSIS: GERD TISSUE SUBMITTED: A - Antrum biopsy for histo and H. pylori, B - Gastric polyps (2) biopsy, C - GE junction biopsy MICROSCOPIC DIAGNOSIS A. Antrum, biopsy: Mild gastritis. See microscopic description and comment. B. Gastric polyps, biopsy: Fragments of fundic gland polyp. C. GE junction, biopsy: Fragments of gastric mucosa with mild chronic inflammation. Intestinal metaplasia (goblet cell metaplasia) is not identified. See comment. SJ:rg 07/17/19 COMMENT A. The results of immunohistochemistry for Helicobacter pylori will be reported separately ([id number]). C. Alcian blue/PAS stain with matched control is used in the evaluation of the specimen. MICROSCOPIC DESCRIPTION Slides are reviewed. A. The specimen shows fragments of gastric mucosa with chronic inflammatory cell infiltrates in the lamina propria consisting of lymphocytes and plasma cells, consistent with mild chronic gastritis. GROSS DESCRIPTION A - Received in fixative is one container labeled with the patient's name and designated antrum biopsy. The specimen consists of three irregular fragments of light jorge soft tissue that in aggregate measure 0.6 x 0.2 x 0.1 cm. The specimen is totally submitted in one cassette. B - Received in fixative is one container labeled with the patient's name and designated gastric polyps biopsy. The specimen consists of multiple irregular fragments of light jorge soft tissue that in aggregate measure 1.3 x 0.3 x 0.1 cm. The specimen is totally submitted in one cassette. C - Received in fixative is one container labeled with the patient's name and designated GE junction biopsy. The specimen consists of two irregular fragments of light jorge soft tissue that in aggregate measure 0.5 x 0.3 x 0.1 cm. The specimen is totally submitted in one cassette. / SJ:rg 07/16/19 TC:3 CPT: 98264 x3, 13746
[2019-07-16 08:16] VITALS: BP 149/82; BP 155/82; PULSE 99; RESP 18; TEMP 36.6; O2SAT 95
[2019-07-16 08:20] VITALS: BP 135/68; BP 149/82; PULSE 98; RESP 17; O2SAT 95
--- NOTE | 2019-07-16 08:21 | OP.EGD_ITS ---
Patient Name: Dary Mathew Procedure Date: 07/16/2019 7:46 AM Date of : 1940 Age: 78 Procedure: Upper GI endoscopy Indications: Gastro-esophageal reflux disease Providers: Shawnee Cid MD Referring MD: Edgar Austin MD Medicines: Monitored Anesthesia Care Patient Profile: This is a 78 year old female. Complications: No immediate complications. Procedure: Pre-Anesthesia Assessment: - Prior to the procedure, a History and Physical was performed, and patient medications and allergies were reviewed. The patient's tolerance of previous anesthesia was also reviewed. The risks and benefits of the procedure and the sedation options and risks were discussed with the patient. All questions were answered, and informed consent was obtained. Prior Anticoagulants: The patient has taken Coumadin (warfarin), last dose was 5 days prior to procedure. ASA Grade Assessment: II - A patient with mild systemic disease. After reviewing the risks and benefits, the patient was deemed in satisfactory condition to undergo the procedure. After obtaining informed consent, the endoscope was passed under direct vision. Throughout the procedure, the patient's blood pressure, pulse, and oxygen saturations were monitored continuously. The gastroscope was introduced through the mouth, and advanced to the second part of duodenum. The upper GI endoscopy was accomplished without difficulty. The patient tolerated the procedure well. Scope In: 8:00:59 AM Scope Out: 8:11:43 AM Total Procedure Duration Time 0 hours 10 minutes 44 seconds Findings: The Z-line was irregular and was found 35 cm from the incisors. Biopsies were taken with a cold forceps for histology. Mildly erythematous mucosa without bleeding was found in the gastric antrum. Biopsies were taken with a cold forceps for histology. Biopsies were taken with a cold forceps for Helicobacter pylori cultures. A few less than 5 mm sessile polyps with no bleeding and no stigmata of recent bleeding were found in the gastric body. The polyp was removed with a cold biopsy forceps. Resection and retrieval were complete. The examined duodenum was normal. The cardia and gastric fundus were normal on retroflexion. Impression: - Z-line irregular, 35 cm from the incisors. Biopsied. - Erythematous mucosa in the antrum. Biopsied. - A few gastric polyps. Resected and retrieved. - Normal examined duodenum. Recommendation: - Await pathology results. - Use sucralfate tablets 1 gram PO QID. - Discharge patient to home. - Resume previous diet. - Resume Coumadin (warfarin) at prior dose in 2 days. Procedure Code(s): --- Professional --- 32212, Esophagogastroduodenoscopy, flexible, transoral; with biopsy, single or multiple Diagnosis Code(s): --- Professional --- K22.8, Other specified diseases of esophagus K31.89, Other diseases of stomach and duodenum K31.7, Polyp of stomach and duodenum K21.9, Gastro-esophageal reflux disease without esophagitis CPT copyright 2017 [employer]. All rights reserved. The codes documented in this report are preliminary and upon sales route driver review may be revised to meet current compliance requirements. MD Shawnee Luna MD 07/16/2019 8:20:44 AM This report has been signed electronically. Number of Addenda: 0 Note Initiated On: 07/16/2019 7:46 AM
--- NOTE | 2019-07-16 08:21 | OP.CCLET_ITS ---
07/16/2019 Edgar Austin MD [address] [place] [address] Re : Upper GI endoscopy procedure for Dary Mathew Dear Dr. Austin This procedure was performed on Tuesday, July 16, 2019. My impressions and recommendations are as follows: Impressions : - Z-line irregular, 35 cm from the incisors. Biopsied. - Erythematous mucosa in the antrum. Biopsied. - A few gastric polyps. Resected and retrieved. - Normal examined duodenum. Recommendations : - Await pathology results. - Use sucralfate tablets 1 gram PO QID. - Discharge patient to home. - Resume previous diet. - Resume Coumadin (warfarin) at prior dose in 2 days. My findings are described in the full procedure note, which is enclosed. If I can be of further assistance, please feel free to contact me at Doctor phone number(s): , Work: . Sincerely, MD Shawnee Luna MD 07/16/2019 8:20:44 AM This report has been signed electronically.
[2019-07-16 08:25] VITALS: BP 122/71; BP 149/82; PULSE 89; RESP 18; O2SAT 96
[2019-07-16 08:32] VITALS: BP 125/69; BP 149/82; PULSE 83; RESP 18; TEMP 36.6; O2SAT 96
[2019-07-16 08:56] VITALS: BP 149/82
== END 2019-07-16 09:11 | disposition home or self-care (01) ==
LOC: EN 07:10 → AC 07:12
PROVIDERS: PCP Family Medicine; Referring Provider Family Medicine; Visit Provider Surgery
PROC: 0DJ08ZZ Inspection of Upper Intestinal Tract, Via Natural or Artificial Opening Endoscopic (ICD-10-PCS; CPT 43235; principal; 2019-07-16 07:55)
DX: K29.70 Gastritis, unspecified, without bleeding (principal); K21.0 Gastro-esophageal reflux disease with esophagitis; Z85.038 Personal history of other malignant neoplasm of large intestine; Z90.49 Acquired absence of other specified parts of digestive tract; E03.9 Hypothyroidism, unspecified; F41.9 Anxiety disorder, unspecified; I10 Essential (primary) hypertension; D68.51 Activated protein C resistance; Z86.718 Personal history of other venous thrombosis and embolism; Z87.891 Personal history of nicotine dependence; Z86.711 Personal history of pulmonary embolism; Z79.01 Long term (current) use of anticoagulants; Z79.899 Other long term (current) drug therapy
CPT/HCPCS: 43239; 36416; 85610; 88305; 88313; 88342; J7120; J2405

== ENCOUNTER → 2019-10-06 | Outpatient (CLI) | payer MEDICARE, SELFPAY ==
[2019-07-16 10:51] VITALS: BMI 30.5
--- NOTE | 2019-10-06 07:30 | BI_ITS ---
MAMMOGRAPHY - BILATERAL SCREENING REASON FOR EXAM: Female, 78 years old. Routine annual screening examination. PERTINENT HISTORY: Non-contributory. TECHNIQUE: Digital bilateral breast baldemar (3D mammographic acquisition) in the CC and MLO projections. 2-D mediolateral oblique (MLO) and craniocaudad (CC) views of both breasts were obtained. CAD: Full Field Digital Mammography with Computer Added Detection was performed. COMPARISON: Comparison is made with prior examination dated July 03, 2018 and January 15, 2017. FINDINGS: Breast Composition: There are scattered areas of fibroglandular density. There are no dominant masses or suspicious calcifications. No other significant abnormalities are identified. There has been no significant change since the prior study. BI/SCREEN MAMM (CAD) W/BALDEMAR BILAT IMPRESSION: Stable bilateral screening mammogram. Yearly follow-up mammogram recommended. (A) ASSESSMENT CATEGORY: BIRADS Category 1: Negative. A letter regarding these results will be sent to the patient by the facility within 30 days. Approximately 10% of breast cancers are not detected by mammography. A normal mammogram should not delay biopsy of a clinically suspicious abnormality. [id number] Electronically Signed: Minh May, at 8:26 EDT , Service support ,
--- NOTE | 2019-10-06 07:58 | CT_ITS ---
STUDY: CT CHEST WITH CONTRAST REASON FOR EXAM: Female, 78 years old. F/U LUNG NODULE RADIATION DOSAGE (If Supplied By Facility): CTDIvol = ( 10.05 ) mGy, DLP = ( 336.73 ) mGycm TECHNIQUE: Transaxial imaging was performed following intravenous administration of IV 100mL Isovue-300. Multiplanar coronal and sagittal images were reformatted. Individualized dose optimization techniques were used for this CT. COMPARISON: Comparison is made with prior examination dated November 06, 2018. FINDINGS: Stable benign appearing bilateral axillary lymph nodes. Stable linear scar in the anterior aspect of the right upper lobe. Along the posterior aspect of this linear scar, there is a 4.5 mm noncalcified nodule. This is essentially unchanged. Stable mild increased markings at the lung bases slightly more prominent on the left side in keeping with scarring. There is no demonstrated pleural abnormality. Normal heart and pericardium. Normal mediastinum. Normal hilar regions. Normal enhanced pulmonary arteries. There is atherosclerotic calcification of the aortic arch . There is demineralization of the thoracic spine. Stable multilevel compression fractures. There is no demonstrated abnormality of the visualized upper abdomen. CT/Chest WITH Contrast IMPRESSION: Stable examination. Electronically Signed: Minh May, at 9:42 EDT , Service support ,
== END | disposition home or self-care (01) ==
LOC: CT 07:28
PROVIDERS: PCP Family Medicine; Referring Provider Internal Medicine Hematology & Oncology; Visit Provider Internal Medicine Hematology & Oncology
DX: C18.9 Malignant neoplasm of colon, unspecified (principal); R91.1 Solitary pulmonary nodule; Z12.31 Encounter for screening mammogram for malignant neoplasm of breast
CPT/HCPCS: 71260; 77063; 77067; Q9967

== ENCOUNTER 2019-11-26 06:51 | Day surgery (SDC) | payer MEDICARE, SELFPAY ==
[2019-10-15 11:16] VITALS: BMI 30.1
[2019-11-26 07:13] VITALS: BP 149/75; PULSE 85; RESP 14; TEMP 36.4; O2SAT 97; BMI 29.9
[2019-11-26] MEDS: Lactated Ringers 1,000 ML 100 ML IV (07:29)
--- NOTE | 2019-11-26 07:52 | H&P.OPEN ---
History of Present Illness Date of Admission: 11/26/19 The patient is a 78 year old F with a personal history of right adenocarcinoma status post right hemicolectomy in April 2018. Patient also underwent a repeat colonoscopy in October 2018 due to a rising CEA which was negative except for a small polyp in the rectum which showed normal colon mucosa. Patient presents for repeat colonoscopy, states she has bowel movements daily denies any blood, denies any abdominal pain. Patient has also been having lung nodule that has been followed by oncology since her initial surgery and initially it was too small to characterize. Past Medical/Surgical History - Planned Operation Planned Operative Procedure/s: colonoscopy Date of Operative Procedure: 11/26/19 Permit Signed: No S.O.S: No Is This Patient Having a Total Joint: No - Previous Hospitalizations/Surgeries HX Hospitalizations: No HX of Surgeries: HYSTERECTOMY. GANGLION CYST/HAND. COLONOSCOPY/EGD. COLONOSCOPY/EGD 04/10/18. lap right hemicolectomy 04/2018. cataract bilat. cscope 2018. right knee scope meniscus repair 2018. EGD/biopsies 06/2019 Any Problems With Anesthesia: No You/Your Family Experience Fever (Hyperthermia) With Anes: No Cholinesterase deficiency: No - Cardiovascular Hx Chest Pain within Last 2 months: No Hx of Irregular Heartbeat and/or Afib: No Hx Heart Attack: No Hx Congestive Heart Failure: No Hx Rheumatic Fever: No Hx Hypertension: Yes - states controlled/ no meds currently Hx Internal Defibrillator: No Hx Pacemaker: No Hx Cardiac Catheterization: No Hx Cardiac Surgery/Stents/Etc.: No Hx Stress Test: Yes - 2018 HX Edema: No Hx Pain in Legs when Walking/Leg Cramps: Yes - neuropathy/feet - Respiratory Chronic Cough: No HX of Shortness of Breath: Yes - sob with 2 flights of stairs Hoarseness: No Hx Chronic Obstructive Pulmonary Disease (COPD): No Hx Asthma: No Hx Emphysema: No Hx Sleep Apnea: No CPAP: No Hx Oxygen Use at Home: No Hx Respiratory Tract Infection/Cold (presently): No Do You Snore Loudly (louder than talking or can be heard): No Do You Often Feel Tired/ Fatigued/ Sleepy Dring Daytime?: No Has Anyone Observed You Stop Breathing During Sleep?: No Result (for STOP score): Negative Hx Smoking: Yes - QUIT 1979, FORMER 19 YR HX Smoking Status: Former smoker - Gastrointestinal Hx Gastroesophageal Reflux: Yes Controlled With Meds: Yes - prevacid/famotidine Hx Gastrointestinal Disorders: Yes - DIVERTICULITIS COLON CA/hemicolectomy 2017 Hx Gastrointestinal Bleed: Yes - 03/2018 Hx Ulcer: No Hx Hiatal Hernia: Yes Difficulty Chewing/Swallowing: No Recent Onset of Swallowing Problems: No Special diet followed at home: No Hx Unplanned Weight Loss of 20#: No HX Unplanned Weight Gain of 20#: No - Neurological Hx Seizures: No HX Syncope/Blackout Spells/Unconsciousness: No Hx CVA/Stroke: No Hx Transient Ischemic Attacks (TIA): No Hx Multiple Sclerosis: No Hx Parkinson's Disease: No Hx Head/Neck Injury: No Hx Headaches: No Hx Back Injury/Pain: No Recent Onset of Speech Difficulty: No Restless Legs: No Does patient have nerve stimulator: No Patient instructed to have device shut off: No Rep notified?: No - Blood Disorder Hx Leukemia: No Bleeding Tendencies: No - not prior to coumadin Hx Deep Vein Thrombosis: Yes - 1991, LEG/LUNG Hx High Cholesterol: No Blood Transmitted Disease: No Hx Hepatitis: No Hx Cirrhosis: No Hx Anemia: Yes - in the past 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 - Reproduction : No Is Patient Lactating: No Hx Hysterectomy: Yes Hx Tubal Ligation: No Are You Post Menopause: Yes - Genitourinary Hx Renal Disease: No Hx Dialysis: No - Musculoskeletal Hx Arthritis: Yes Hx Rheumatoid Arthritis: No Hx Gout: No Recent Onset of an Orthopedic Problem: No - Endocrine Hx Diabetes: No Thyroid Disease: Yes - ON MED Hx Steroid Therapy: No - Psycho/Social Hx Substance Use: No Hx Alcohol Use: No Hx Anxiety: Yes - med as needed Hx Depression: No Mental Illness: No Hx Dementia: No - Miscellaneous Hx Cancer: Yes - COLON CA Recent Exposure to Contagious Disease: No Active MRSA: No Hx of C-Diff: No Any Loose Teeth: No - DENTURES Allergies alendronate sodium [From Fosamax] Adverse Reaction (Severe, Verified 11/26/19 07:12) Other mouth rash rabeprazole [From AcipHex] Adverse Reaction (Verified 11/26/19 07:12) Rash Maternal Family History: Family History (Last Reviewed 10/15/19 @ 11:11 by Anastasai Del Rio) Father Emphysema lung Heart disease Mother Hypertension CVA (cerebral vascular accident) Sister Lung cancer Pancreatic cancer Brother Pancreatic cancer Diabetes, Heart Disease, Hypertension Paternal Family History: Family History (Last Reviewed 10/15/19 @ 11:11 by Anastasia Del Rio) Father Emphysema lung Heart disease Mother Hypertension CVA (cerebral vascular accident) Sister Lung cancer Pancreatic cancer Brother Pancreatic cancer Heart Disease, Hypertension - Discharge Is Pt Admitted From a Long Term, or a Detention: No Who Could Help: brother After D/C, Where Do you Plan to Go: Return Home - From the PAT History Number of Risk Factors: 9 - Physical Exam Vitals/I&O's: Vital Signs Temp Pulse Resp BP Pulse Ox 97.6 F L 85 14 149/75 H 97 11/26/19 07:13 11/26/19 07:13 11/26/19 07:13 11/26/19 07:13 11/26/19 07:13 Oxygen Delivery Method Room Air Weight: 158 lb 4.67 oz Body Mass Index (BMI) 29.9 General: Alert, Oriented x3, Cooperative, No apparent distress HEENT: Atraumatic Lungs: Normal air movement Cardiovascular: Regular rate Abdomen: Soft, Non Tender, Non-Distended Extremities: No clubbing, No cyanosis, No edema Neurological: Cranial nerves II-XII grossly intact Psych/Mental Status: Normal Affect Current Medications Lactated Ringer's () 1,000 mls @ 100 mls/hr IV .Q10H JAN Last Admin: 11/26/19 07:29 Dose: 100 mls/hr Documented by: Assessment/Plan All Active Problems (Last Reviewed 10/15/19 @ 11:10 by Anastasia Del Rio) Heme positive stool (Acute) Acute blood loss anemia (Acute) Iron deficiency anemia (Resolved) 78-year-old female history of ascending adenocarcinoma Procedure Criteria Procedure Type: Elective COVID Risk Discussion: The surgeon/proceduralist and patient have discussed in detail the risk of exposure to and/or potential harm posed by the COVID-19 virus with having a surgery/procedure at this time versus the risk of delaying the surgery/procedure. It is not possible to know either the risk of delaying the surgery or procedure or chance of getting an infection with perfect accuracy, but a joint decision was made between the patient and the surgeon/proceduralist to proceed at this time with the scheduled surgery/procedure as indicated on the consent form. Surgery Risks - Colonoscopy I discussed with the patient the risks of the procedure: Yes Risks Include but are not Limited To: Risks include but are not limited to: Bleeding, perforation requiring further surgery, inability to complete colonoscopy requiring barium enema.
[2019-11-26 08:20] VITALS: BP 149/75; BP 154/75; PULSE 73; RESP 16; TEMP 36.6; O2SAT 99
[2019-11-26 08:25] VITALS: BP 145/69; BP 149/75; PULSE 72; RESP 16; O2SAT 99
--- NOTE | 2019-11-26 08:27 | OP.COLON_ITS ---
Patient Name: Dary Mathew Procedure Date: 11/26/2019 7:54 AM Date of : 1940 Age: 78 Procedure: Colonoscopy Indications: High risk colon cancer surveillance: Personal history of colon cancer Providers: Shawnee Cid MD Referring MD: Edgar Austin MD Medicines: Monitored Anesthesia Care Patient Profile: This is a 78 year old female. Last Colonoscopy: October 2018. Complications: No immediate complications. Procedure: Pre-Anesthesia Assessment: - Prior to the procedure, a History and Physical was performed, and patient medications and allergies were reviewed. The patient's tolerance of previous anesthesia was also reviewed. The risks and benefits of the procedure and the sedation options and risks were discussed with the patient. All questions were answered, and informed consent was obtained. Prior Anticoagulants: The patient has taken Coumadin (warfarin), last dose was 5 days prior to procedure. ASA Grade Assessment: Per anesthesia. After reviewing the risks and benefits, the patient was deemed in satisfactory condition to undergo the procedure. After I obtained informed consent, the scope was passed under direct vision. Throughout the procedure, the patient's blood pressure, pulse, and oxygen saturations were monitored continuously. The pediatric colonoscope was introduced through the anus and advanced to the ileocolonic anastomosis. The colonoscopy was performed without difficulty. The patient tolerated the procedure well. The quality of the bowel preparation was good. Scope In: 8:02:29 AM Scope Withdrawal Time 0 hours 7 minutes 3 seconds Scope Out: 8:16:35 AM Total Procedure Duration Time 0 hours 14 minutes 6 seconds Findings: The perianal and digital rectal examinations were normal. A few medium-mouthed diverticula were found in the sigmoid colon. Previous ileocolonic anastomosis widely patent. Impression: - Diverticulosis in the sigmoid colon. - No specimens collected. Recommendation: - Discharge patient to home. - Resume previous diet. - Continue present medications. - Repeat colonoscopy in 3 years for surveillance. Procedure Code(s): --- Professional --- G0105, PT, Colorectal cancer screening; colonoscopy on individual at high risk Diagnosis Code(s): --- Professional --- Z85.038, Personal history of other malignant neoplasm of large intestine K57.30, Diverticulosis of large intestine without perforation or abscess without bleeding CPT copyright 2017 [employer]. All rights reserved. The codes documented in this report are preliminary and upon measurer machine review may be revised to meet current compliance requirements. MD Shawnee Luna MD 11/26/2019 8:26:31 AM This report has been signed electronically. Number of Addenda: 0 Note Initiated On: 11/26/2019 7:54 AM
--- NOTE | 2019-11-26 08:27 | OP.CCLET_ITS ---
11/26/2019 Edgar Austin MD [address] [place] [address] Re : Colonoscopy procedure for Dary Gomezel Dear Dr. Austin This procedure was performed on Tuesday, November 26, 2019. My impressions and recommendations are as follows: Impressions : - Diverticulosis in the sigmoid colon. - No specimens collected. Recommendations : - Discharge patient to home. - Resume previous diet. - Continue present medications. - Repeat colonoscopy in 3 years for surveillance. My findings are described in the full procedure note, which is enclosed. If I can be of further assistance, please feel free to contact me at Doctor phone number(s): , Work: . Sincerely, MD Shawnee Luna MD 11/26/2019 8:26:31 AM This report has been signed electronically.
[2019-11-26 08:30] VITALS: BP 149/75; BP 152/77; PULSE 72; RESP 16; O2SAT 99
[2019-11-26 08:35] VITALS: BP 130/67; BP 149/75; PULSE 71; RESP 16; TEMP 36.5; O2SAT 97
[2019-11-26 09:05] VITALS: BP 149/75
[2019-11-26 14:30] LABS: Prothrombin Time Fingerstick 11.5 SEC (11.9-14.4)
== END 2019-11-26 09:15 | disposition home or self-care (01) ==
LOC: EN 06:53 → AC 06:54
PROVIDERS: Anesthesiology; PCP Family Medicine; Referring Provider Family Medicine; Visit Provider Surgery
PROC: 0DJD8ZZ Inspection of Lower Intestinal Tract, Via Natural or Artificial Opening Endoscopic (ICD-10-PCS; CPT 45378; principal; 2019-11-26 07:55)
DX: K57.30 Diverticulosis of large intestine without perforation or abscess without bleeding (principal); Z85.038 Personal history of other malignant neoplasm of large intestine; Z90.49 Acquired absence of other specified parts of digestive tract; R91.1 Solitary pulmonary nodule; I10 Essential (primary) hypertension; K21.9 Gastro-esophageal reflux disease without esophagitis; D68.51 Activated protein C resistance; E07.9 Disorder of thyroid, unspecified; F41.9 Anxiety disorder, unspecified; Z11.59 Encounter for screening for other viral diseases; Z87.891 Personal history of nicotine dependence; Z86.718 Personal history of other venous thrombosis and embolism; Z86.711 Personal history of pulmonary embolism; Z79.01 Long term (current) use of anticoagulants; Z79.899 Other long term (current) drug therapy
CPT/HCPCS: 45378; 36416; 85610; 87635; G2023; J7120; J2405; U0003

== ENCOUNTER → 2020-04-07 12:22 | Outpatient (CLI) | payer MEDICARE, SELFPAY ==
[2020-01-14 10:59] VITALS: BMI 30.2
--- NOTE | 2020-04-07 12:23 | CT_ITS ---
STUDY: CT CHEST WITH CONTRAST REASON FOR EXAM: Female, 79 years old. LUNG NODULE FOLLOW UP, HX COLON CA W/ POLYP REMOVAL RADIATION DOSAGE (If Supplied By Facility): CTDIvol = ( 7.96 ) mGy, DLP = ( 295.25 ) mGycm TECHNIQUE: Transaxial imaging was performed following intravenous administration of IV 100mL Isovue-300. Multiplanar coronal and sagittal images were reformatted. Individualized dose optimization techniques were used for this CT. COMPARISON: Comparison is made with prior study dated 10/06/2019. FINDINGS: Emphysematous changes. Stable focal linear scar in the anterior aspect of the right upper lobe. Along its posterior medial aspect of the scar does a stable 4 mm noncalcified nodule. Stable mild degree of scarring at the lung bases slightly worse on the left side. There is no demonstrated pleural abnormality. Normal heart and pericardium. Normal mediastinum. Normal hilar regions. Normal enhanced pulmonary arteries. There is atherosclerotic calcification of the aortic arch . There are multi-level degenerative changes of the thoracic spine. Demineralization of the thoracic vertebrae with multiple thoracic vertebral compression fractures. There is no demonstrated abnormality of the visualized upper abdomen. CT/Chest WITH Contrast IMPRESSION: Stable examination. Electronically Signed: Minh May, at 14:08 EST , Service support ,
== END ==
PROVIDERS: PCP Family Medicine; Referring Provider Internal Medicine Hematology & Oncology; Visit Provider Internal Medicine Hematology & Oncology
DX: R91.1 Solitary pulmonary nodule (principal); C18.9 Malignant neoplasm of colon, unspecified
CPT/HCPCS: 71260; Q9967

== ENCOUNTER → 2020-11-09 07:51 | Outpatient (CLI) | payer MEDICARE, SELFPAY ==
[2020-08-11 09:58] VITALS: BMI 27.9
--- NOTE | 2020-11-09 07:56 | CDU_ITS ---
Reason For Study: carotid stenosis Rt. Velocities/BP Lt. Velocities/BP Prox CCA 48.1/9.7 cm/sec. Prox CCA 88.8/23.0 cm/sec. Mid CCA 57.4/15.4 cm/sec. Mid CCA 68.7/21.2 cm/sec. Dist CCA 61.6/18.8 cm/sec. Dist CCA 76.0/24.8 cm/sec. Prox ICA 130.8/45.2 cm/sec. Prox ICA 86.9/34.0 cm/sec. Mid ICA 150.5/40.8 cm/sec. Mid ICA 77.8/26.7 cm/sec. Dist ICA 64.6/24.1 cm/sec. Dist ICA 101.6/24.8 cm/sec. Rt. ICA/CCA = 2.6. Lt. ICA/CCA = 1.5. Prox ECA 72.1/7.3 cm/sec. Prox ECA 105.2/11.7 cm/sec. Rt. Vert. 60.9/14.2 cm/sec. Lt. Vert. 68.7/19.4 cm/sec. Right Extracranial There is intimal thickening but no significant atherosclerotic plaque noted in the right common carotid artery. There is heterogeneous, irregular atherosclerotic plaque noted in the right internal carotid artery. There is intimal thickening but no significant atherosclerotic plaque noted in the right external carotid artery. Antegrade flow is noted in the right vertebral artery. Left Extracranial There is homogeneous, smooth atherosclerotic plaque noted in the left common carotid artery. There is heterogeneous, irregular atherosclerotic plaque noted in the left internal carotid artery. There is homogeneous, smooth atherosclerotic plaque noted in the left external carotid artery. Antegrade flow is noted in the left vertebral artery. Procedure Carotid Duplex [id number]. This is a Carotid Duplex examination using B-mode, color flow and specral Doppler. The exam was diagnostic. Exam performed in department. VL/Carotid Duplex Ultrasound Interpretation Summary Moderate (50-69%) stenosis right extracranial internal carotid. Mild (<50%) elzbieta nosis left extracranial internal carotid. Flow within the vertebral arteries is antegrade bilaterally. Ordering Physician: Edgar Austin Performed By: Compa Burgos RVT and Student
== END ==
PROVIDERS: PCP Family Medicine; Referring Provider Family Medicine; Visit Provider Family Medicine
DX: I65.23 Occlusion and stenosis of bilateral carotid arteries (principal)
CPT/HCPCS: 93880

== ENCOUNTER → 2021-10-06 | Outpatient (CLI) | payer MEDICARE, SELFPAY ==
--- NOTE | 2021-10-06 11:32 | BI_ITS ---
MAMMOGRAPHY - BILATERAL SCREENING REASON FOR EXAM: Female, 80 years old. Routine annual screening examination. PERTINENT HISTORY: Non-contributory. TECHNIQUE: Digital bilateral breast baldemar (3D mammographic acquisition) in the CC and MLO projections. 2-D mediolateral oblique (MLO) and craniocaudad (CC) views of both breasts were obtained. CAD: Full Field Digital Mammography with Computer Added Detection was performed. COMPARISON: Comparison is made with prior study of 10/06/2019 and 07/03/2018. FINDINGS: Breast Composition: There are scattered areas of fibroglandular density. There are no dominant masses or suspicious calcifications. No other significant abnormalities are identified. There has been no significant change since the prior study. BI/SCRN MAMM (CAD)W/BALDEMAR BILAT IMPRESSION: Stable bilateral screening mammogram. Yearly follow-up mammogram recommended. (A) ASSESSMENT CATEGORY: BIRADS Category 1: Negative. A letter regarding these results will be sent to the patient by the facility within 30 days. Approximately 10% of breast cancers are not detected by mammography. A normal mammogram should not delay biopsy of a clinically suspicious abnormality. [id number] Electronically Signed: Minh May MD at 12:42 EDT ,
== END | disposition home or self-care (01) ==
LOC: OPBI 11:38
PROVIDERS: PCP Family Medicine; Visit Provider Internal Medicine Hematology & Oncology
DX: Z12.31 Encounter for screening mammogram for malignant neoplasm of breast (principal)
CPT/HCPCS: 77063; 77067

== ENCOUNTER → 2021-10-31 | Outpatient (CLI) | payer MEDICARE, SELFPAY ==
[2021-10-31 16:38] LABS: Cholesterol 216 mg/dL (200); Free T3 1.7 pg/mL (2.18-3.98); High Density Lipoprotein 48 mg/dL; T4 Free Direct 1.07 ng/dL (0.76-1.46); Thyroid Stim Hormone (TSH) 0.49 uIU/mL (0.358-3.74); Triglycerides 141 mg/dL; Very Low Density Lipoprotein 28 mg/dL (5-40)
== END | disposition home or self-care (01) ==
LOC: MFPLAB 14:20
PROVIDERS: PCP Family Medicine; Visit Provider Family Medicine
DX: I10 Essential (primary) hypertension (principal); E03.9 Hypothyroidism, unspecified
CPT/HCPCS: 36415; 80061; 84439; 84443; 84481

== ENCOUNTER → 2022-08-07 | Outpatient (CLI) | payer MEDICARE, SELFPAY ==
--- NOTE | 2022-08-07 14:09 | NEURO_ITS ---
NCS and/or EMG Patient Report Ordering Doctor: Edgar Austin DATE OF SERVICE: 08/07/22 Indication: Intermittent sensory disturbance of the medial three fingers on both hands. On the left there is a burning pain that will awaken her from sleep. On the right, the fingers will just feel numb and tingly. No axial or radicular neck pain. On warfarin for prior DVT. Findings: Nerve conduction studies were performed in the right and left upper extremities. The right median motor study recording the abductor pollicis brevis was absent. The right ulnar motor study recording the abductor digiti minimi showed a normal amplitude, normal distal latency and normal conduction velocity. No conduction block or focal slowing was present across the elbow. The right median sensory response recording digit two showed a reduced amplitude, prolonged latency and markedly reduced conduction velocity. The right ulnar sensory response recording digit five showed a normal amplitude, normal latency and borderline conduction velocity. The right radial sensory response recording over the extensor snuff box showed a normal amplitude, normal latency and borderline conduction velocity. The left median motor study recording the abductor pollicis brevis showed a normal amplitude, prolonged distal latency and mildly slowed conduction velocity. The left ulnar motor study recording the abductor digiti minimi showed a normal amplitude, normal distal latency and normal conduction velocity. No conduction block or focal slowing was present across the elbow. The left median sensory response recording digit two was absent. The left ulnar sensory response recording digit five showed a normal amplitude, normal latency and borderline conduction velocity. The left radial sensory response recording over the extensor snuff box showed a normal amplitude, normal latency and borderline conduction velocity. Right median-ulnar lumbrical / interosseous motor latencies showed a prolonged median latency compared to the ulnar. Left median-ulnar lumbrical / interosseous motor latencies showed a prolonged median latency compared to the ulnar. Needle EMG of the right abductor pollicis was performed. Insertional activity was decreased, but a rare fibrillation was seen. One rapidly firing motor unit was seen which was large amplitude and long in duration. Needle EMG of the left abductor pollicis was performed. Insertional activity was increased. Motor units were large amplitude and long in duration with reduced recruitment. Additional muscles were not sampled given the confirmatory nature of nerve conduction studies as well as the fact that the patient was anticoagulated. Impression: This is an abnormal study. 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 The pathophysiology is both demyelinating and axonal. These findings are compatible with the clinical diagnosis of bilateral carpal tunnel syndrome. Rosalino Ames D.O. Multi Select Codes Neurology Neurology Interp Codes: 21261-76 [facility] [place] tst done w/nerv tst trimble (interp) (Qty:2) and 14846-05 Nrv cndj test 13/> studies (interp)
== END | disposition home or self-care (01) ==
PROVIDERS: PCP Family Medicine; Referring Provider Family Medicine; Visit Provider Family Medicine
DX: R20.2 Paresthesia of skin (principal)
CPT/HCPCS: 95885; 95913

== ENCOUNTER 2022-09-29 06:13 | Day surgery (SDC) | payer MEDICARE, SELFPAY ==
[2022-09-11 17:37] LABS: Absolute Lymphocyte Count 1.54 X10^3/uL (0.83-4.51); Absolute Neutrophil Count 4.1 X10^3/uL (2.0-7.7); Basophil# 0.05 X10^3/uL; Basophil% 0.8 % (0-1); Eosinophil# 0.06 X10^3/uL; Hematocrit 39.2 % (37-47); Hemoglobin 11.9 g/dL (12.0-15.0); Lymphocyte # 1.54 X10^3/ul (0.83-4.51); Lymphocyte % 24.8 % (19-41); Mean Corp Hgb Conc 30.4 g/dL (32-36); Mean Corpuscular Hgb 27.7 pg (27.0-32.0); Mean Corpuscular Volume 91.4 fL (81-99); Mean Platelet Vol. 9.9 fl (6.2-12.0); Monocyte# 0.44 X10^3/uL; Monocyte% 7.1 % (0-10); NRBC Flagged by Analyzer 0 % (0-5); Neutrophil # 4.07 X10^3/uL (2.7-7.7); Neutrophil % 65.7 % (47-70); Platelet Count 277 K/mm3 (150-450); RBC Distribution Width CV 15.4 % (11.6-14.6); RBC Distribution Width SD 51.6 fl (35.1-43.9); Red Blood Count 4.29 M/mm3 (4.2-5.4); White Blood Count 6.2 K/mm3 (4.4-11.0)
[2022-09-11 18:01] LABS: Anion Gap 5 (5-15); BUN 25 mg/dL (7-18); BUN/Creat Ratio 21.9 RATIO (10-20); Calcium,Total 9.1 mg/dL (8.5-10.1); Chloride 107 mmol/L (98-107); Creatinine, Serum 1.14 mg/dL (0.55-1.02); EST Glomerular Filtration Rate 48 mL/min (>60); Est Glom Filt Rate - Afr Amer 59 mL/min (>60); Glucose 116 mg/dL (74-106); Potassium 3.9 mmol/L (3.5-5.1); Sodium Level 137 mmol/L (136-145)
[2022-09-29] VITALS (7 sets, daily range): BP systolic 118–141; BP diastolic 59–79; PULSE 71–80; RESP 16; TEMP 36.1–36.5; O2SAT 95–98; BMI 27.8
[2022-09-29 06:35] LABS: INR Fingerstick 1.2; Prothrombin Time Fingerstick 13.7 SEC (11.7-14.9)
[2022-09-29] MEDS: Lactated Ringers 1,000 ML 15 ML IV (06:58)
[2022-09-29] MEDS: Cefazolin 2 GM in 0.9% Normal Saline 100 ML IV (07:41)
[2022-09-29] MEDS: Lidocaine 1% /Epi 1:100 (50ml) 50 ML VIAL (08:08)
--- NOTE | 2022-09-29 08:17 | PCM.HP.BLA ---
History and Physical Date of Admission: 09/29/22 [facility] [address] [place] [address] OFFICE VISIT Date of Service:? 08/30/22 MR#: [id number] Acct: [id number] Name:EVELYN LEWIS Rep #: [id number] : 1940 ? ? Provider: Dr. Evangelista Ma, DO Age/Sex:? 81/F ? ? Location: [facility] [place] Status: Signed Intake Intake Visit Reasons:?BI LAT HANDS Chief Complaint: Bilateral hands Is patient in pain?: No Allergies alendronate sodium [From Fosamax] Adverse Reaction (Severe, Verified 08/30/22 10:50) Otherrabeprazole [From AcipHex] Adverse Reaction (Verified 08/30/22 10:50) Rash Medications acetaminophen 500 mg capsule 500 mg PO PRN PRN Pain 03/28/18 [History Confirmed 08/30/22] levothyroxine 75 mcg tablet 75 mcg PO DAILY THYROID 03/28/18 [History Confirmed 08/30/22] lorazepam 1 mg tablet 1 mg PO BID ANXIETY 03/28/18 [History Confirmed 08/30/22] warfarin 2 mg tablet 2 mg PO DAILY BLOOD THINNER 04/09/18 [History Confirmed 08/30/22] lansoprazole 30 mg capsule,delayed release 30 mg PO DAILY reflux 10/15/19 [History Confirmed 08/30/22] losartan 50 mg tablet 50 mg PO DAILY 10/13/21 [History Confirmed 08/30/22] PFSH Medical History? Acute blood loss anemia Anxiety DVT (deep venous thrombosis) GERD (gastroesophageal reflux disease) Heme positive stool HTN (hypertension) Hypothyroidism IBS (irritable bowel syndrome) Iron deficiency anemia SOB (shortness of breath) Surgical History? Bilateral cataracts History of surgical removal of ganglion cyst menicus right knee repair S/P colectomy S/P hysterectomy Family History? Father Emphysema lung Heart diseaseMother Hypertension CVA (cerebral vascular accident)Sister Lung cancer Pancreatic cancerBrother Pancreatic cancer Social History? Smoking Status:? Former smoker second hand exposure:? No alcohol intake:? never substance use type:? does not use arline/latter-day:? Denominational of God seatbelt use:? always do you feel safe at home:? Yes HPI BI LAT HANDS Details: Parts of this documentation were recorded by a scribe, this documentation accurately reflects the service provided and the decisions made by me, Dr. Evangelista Ma, DO 08/30/22 0828. EVELYN BARBER is a 81 year old F NEW patient here today for BL hand numbness and tingling. She states this has been going on for two years. She complains of numbness and tingling in both hands. The left hand she reports tingling in all digits and the Right hand in the first three digits. She complains of weakness in both hands. She has tried a wrist sleeve and reports it helps her with the pain but causing swelling in her hands. The numbness in her hands wakes her up at night. She reports injury to her left wrist a few years ago that required a cast. She has already had an EMG study which showed carpal tunnel syndrome severe on the right, moderately severe on the left. 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 Ortho Exam General General: Yes no acute distress Neurologic: Yes alert and Yes oriented x3 Psychologic: Yes reasonable and appropriate Right Wrist/Hand Skin/Wound: No Swelling and No Ecchymosis Right Wrist: Yes Thenar Atrophy; No Durken's Test, Tinel's or Phalen's WRIST: small ganglion over volar wrist crease 60 wrist extension 45 wrist flexion 85 supination full pronation hypertrophy of DIP joints Left Wrist/Hand Skin/Wound: Yes CDI, No Swelling, No Ecchymosis and No erythema Left Wrist: Yes Thenar Atrophy; No Durken's Test, No Tinel's, No Phalen's and No tender to palpate carpometacarpal joint WRIST: radial deviated deformity of wrist 50 wrist extension 45 wrist flexion full pronation 85 supination full finger flexion and extension hypertrophy of DIP joints hypertrophy of MP joint of index fi head: Normocephalic Atraumatic Chest: symmetrical rise, non-labored breathing, no audible wheeze Abdomen: no guarding, non-rigid nger Head: Normocephalic Atraumatic Chest: symmetrical rise, non-labored breathing, no audible wheeze Abdomen: no guarding, non-rigidI have examined the patient and the H&P has been reviewed. There are no clinical changes since date of exam. Supplemental Info 08/07/2022 EMG bilateral upper extremities: 1 severe right sided carpal tunnel right median motor study recording the APB was absent right median sensory response showed reduced amplitude prolonged latency and markedly reduced conduction velocity.? 2 left moderate least severe carpal tunnel left median sensory response absent. Coding Level of Care Code Off vis,new,level 3 Diagnoses Carpal tunnel syndrome, bilateral? G56.03 Assessment and Plan Assessment and Plan (1) Carpal tunnel syndrome, bilateral: ?Status:?Acute ? ? ? Orders: Orders Hand Min 3 Views Today R20.0 - Anesthesia of skin ? Hand Min 3 Views Today R20.0 - Anesthesia of skin ? Plan Obtained X-rays of patient's BL hands. Personally reviewed x-rays. There is no obvious fracture, dislocation, or lucency noted. PAtient educated that the EMG study showed showed carpal tunnel syndrome severe on the right, moderately severe on the left. Treatment options are do nothing or night bracing or injections or CTR. Recommended CTR at this time. There may be permanent damage of the muscle already d/t the severity of the carpal tunnel. Educated that there is a chance she may continue to have the numbness but this would provide her with the chance for recovery. Reviewed the pre-operative plans with the patient. Risks and benefits of the procedure were fully explained, including but not limited to infection, neurovascular injury, continued pain, arthritis, stiffness, need for further surgery, re-injury, DVT, PE, general risks of anesthesia, and loss of limb or life, incisional hypersensitivity and pillar pain and continued or worsening symptoms, . The patient understands all the risks and does wish to proceed with written consent for left CTR. She will need medical clearance from PCP to stop the Coumadin prior to surgery. Need INR less than 1.5 the day of surgery. Follow up 2 weeks post op or sooner if pain, swelling, numbness or associated symptoms, or concerns develop.? All questions answered. Patient in agreement of plan. 08/30/22 1573 <Electronically signed by Evangelista Borruso DO> Date Evangelista Borru DO Cosigner Signature: Date (if applicable) ? CC: ? ~
--- NOTE | 2022-09-29 08:21 | OP.PCM_ITS ---
Operative Report Date of Procedure: 09/29/22 Preoperative diagnosis; left carpal tunnel syndrome Postoperative diagnosis; same Procedure: Left open carpal tunnel release Anesthesia: Local with MAC Tourniquet time; 12 minutes 250 mm Hg Complications: None Indication for procedure; This is a 81-year-old female with long-standing sym ptoms consistent with carpal tunnel syndrome the patient did have electrodiagnostic evidence of this and has failed conservative treatment. Risks benefits and alternatives were reviewed including risks of bleeding infection nerve artery tissue damage need for further surgery and continued pain and symptoms, hypersensitivity to scar and Pillar pain. Procedure; The patient was met in the preoperative holding area the operative extremity was identified by both patient and physician and was marked the patient was met by anesthesia and brought back to the operating room and transferred to the operating table in the supine position. Anesthesia was started. A well-padded tourniquet was placed on the operative upper extremity. The patient was prepped and draped in the usual sterile fashion. A timeout was called to ensure the proper patient procedure and extremity were being contemplated. 0.5 percent lidocaine with epinephrine was injected into the incisional area. An Esmarch was used to exsanguinate the extremity. The tourniquet was inflated to 250 mmHg. A midline incision was made with a 15 blade scalpel between the thenar and hypothenar eminence. This was carried down through the skin and subcutaneous tissue. Art retractors were then used, a deep blade scalpel was used to make a deep incision in the palmar aponeurosis. The art retractors were then placed deep to this and the transverse carpal ligament was identified a perforation was made with a scalpel and a Littler scissors were used to complete the release of the transverse carpal ligament distally under direct visualization with the tips facing ulnarly until the perivascular fat was reached. Then turning our attention proximally using a tension slide technique the proximal extent of the transverse carpal ligament was released . There was noted to be hourglass configuration to the median nerve and hypertrophy of the transverse carpal ligament without other findings. The wound was thoroughly irrigated and was closed with 4-0 nylon vertical mattress stitches. Dressing was applied in the form of xeroform 4 x 4, web roll and an mitch wrap. Tourniquet was let down there is no intraoperative complications patient tolerated the procedure well and was transferred to the PACU. All counts were correct.
--- NOTE | 2022-09-29 08:21 | DCINST_ITS ---
Discharge Instructions Dressing / Incision Call your doctor if you observe: Shortness of breath and Chest pain Additional Dressing/Incision Instructions:: Ice and elevate operative extremity next 72 hours. Keep dressing on clean and dry for 48 hours then may remove and allow warm soapy water to rinse over incision but do not submerge until sutures are out. Then apply bandaid over incision and change daily. encourage finger range of motion. Not lift more than 1/2 pound. Minimize narcotic use only as needed and directed, may use OTC NSAID and Tylenol to supplement/substitute for pain control. Follow Up Care Please Follow Up With: Evangelista Ma DO When: 2 weeks Test Results: Test results from this visit will be discussed in further detail at your follow- up appointment, if applicable. Discharge Plan Admission Primary Reason for Your Visit: Left carpal tunnel syndrome Attending Provider: Evangelista Ma Primary Care Provider: Edgar Austin Discharge Orders/Prescriptions Prescriptions: New oxycodone 5 mg tablet 2.5 - 5 mg PO Q4H PRN (Reason: pain) 5 Days Qty: 5 0RF Continued losartan 50 mg tablet 100 mg PO DAILY levothyroxine 75 MCG tablet 75 mcg PO DAILY lorazepam 1 MG tablet 1 mg PO QHS Label Comments: TK 1 T PO BID PRN acetaminophen 500 MG capsule 500 mg PO PRN PRN (Reason: Pain) warfarin 2 MG tablet 2 mg PO SUTUWETHSA Label Comments: stop 5 days preop lansoprazole 30 MG capsule 30 mg PO QHS warfarin 1 mg Tablet 1 mg PO MOFR Referrals / Follow Up: Edgar Austin MD [Primary Care Provider] - Disposition Disposition (needs filled in before D/C Order can be placed): Home, Self Care
--- NOTE | 2022-09-29 08:34 | SUR.PHASEI ---
left hand warm, skin pink, denied numbness or tingling
== END 2022-09-29 09:31 | disposition home or self-care (01) ==
LOC: SDC 06:13 → AC 06:14
PROVIDERS: PCP Family Medicine; Referring Provider Orthopaedic Surgery; Visit Provider Orthopaedic Surgery
PROC: (CPT 64721; principal; 2022-09-29 07:45)
DX: G56.03 Carpal tunnel syndrome, bilateral upper limbs (principal); I10 Essential (primary) hypertension; E03.9 Hypothyroidism, unspecified; K21.9 Gastro-esophageal reflux disease without esophagitis; Z79.01 Long term (current) use of anticoagulants; Z79.890 Hormone replacement therapy; Z79.899 Other long term (current) drug therapy; Z87.891 Personal history of nicotine dependence
CPT/HCPCS: 64721; 01810; 36415; 36416; 80048; 85025; 85610; J7120

== ENCOUNTER → 2022-11-02 | Outpatient (CLI) | payer MEDICARE, SELFPAY ==
[2022-11-02 16:41] LABS: Anion Gap 3 (5-15); BUN 24 mg/dL (7-18); BUN/Creat Ratio 24.8 RATIO (10-20); Calcium,Total 8.9 mg/dL (8.5-10.1); Chloride 111 mmol/L (98-107); Cholesterol 255 mg/dL (200); Creatinine, Serum 0.97 mg/dL (0.55-1.02); EST Glomerular Filtration Rate 58 mL/min (>60); Est Glom Filt Rate - Afr Amer 71 mL/min (>60); Free T3 1.6 pg/mL (2.18-3.98); Glucose 89 mg/dL (74-106); High Density Lipoprotein 40 mg/dL; Sodium Level 138 mmol/L (136-145); T4 Free Direct 0.92 ng/dL (0.76-1.46); Triglycerides 292 mg/dL; Very Low Density Lipoprotein 58 mg/dL (5-40)
== END | disposition home or self-care (01) ==
LOC: MFPLAB 13:49
PROVIDERS: PCP Family Medicine; Visit Provider Family Medicine
DX: I10 Essential (primary) hypertension (principal); E03.9 Hypothyroidism, unspecified
CPT/HCPCS: 36415; 80048; 80061; 84439; 84443; 84481

== ENCOUNTER 2022-12-06 07:21 | Day surgery (SDC) | payer MEDICARE, SELFPAY ==
[2022-12-06] VITALS (7 sets, daily range): BP systolic 98–148; BP diastolic 73–88; PULSE 72–92; RESP 12–18; TEMP 36.6–37.2; O2SAT 96–98; BMI 27.5
--- NOTE | 2022-12-06 07:44 | HP.PCM_ITS ---
History and Physical Date of Admission: 12/06/22 Date of Service: 11/14/22 MR#: [id number] Acct: [id number] Name: EVELYN BARBER Rep #: [id number] : 1940 Provider: Dr. Shawnee Cid MD Age/Sex: 81/F Location: [facility] Status: Signed Intake Vital Signs 11/14/2308:58 Height 5 ft 1 in Weight: 151 lb 2 oz BMI 28.5 BP 129/91 H Blood Pressure Location Rt brachial Position Sitting Respiration 18 Pulse 86 Pulse Source Monitor Temp 97.4 F L Temp Source Temporal Pulse Oximetry (%) 95 Oxygen Delivery Method room air Intake Visit Reasons: RECALL LETTER- SCOPE Chief Complaint: C-Scope Parts Expediter Required: No Is patient in pain?: No Allergies alendronate sodium [From Fosamax] Adverse Reaction (Severe, Verified 11/14/22 10:00) Otherrabeprazole [From AcipHex] Adverse Reaction (Verified 11/14/22 10:00) Rash Medications acetaminophen 500 mg capsule 500 mg PO PRN PRN Pain 03/28/18 [History Confirmed 11/14/22] levothyroxine 75 mcg tablet 75 mcg PO DAILY THYROID 03/28/18 [History Confirmed 11/14/22] lorazepam 1 mg tablet 1 mg PO QHS ANXIETY 03/28/18 [History Confirmed 11/14/22] warfarin 2 mg tablet 2 mg PO SUTUWETHSA BLOOD THINNER 04/09/18 [History Confirmed 11/14/22] lansoprazole 30 mg capsule,delayed release 30 mg PO QHS reflux 10/15/19 [History Confirmed 11/14/22] losartan 50 mg tablet 100 mg PO DAILY 10/13/21 [History Confirmed 11/14/22] warfarin 1 mg tablet 1 mg PO MOFR 09/15/22 [History Confirmed 11/14/22] oxycodone 5 mg tablet 2.5 - 5 mg PO Q4H PRN pain 5 days #5 tabs 09/29/22 [Rx Confirmed 11/14/22] PFSH Medical History (Updated 11/14/22 @ 09:58 by Sita Niño) Acute blood loss anemia Anemia Anxiety Arthritis Back pain Cancer DVT (deep venous thrombosis) DVT (deep venous thrombosis) Former smoker Gastric reflux GERD (gastroesophageal reflux disease) Heme positive stool History of diverticulitis History of IBS History of stress test HTN (hypertension) Hypothyroidism IBS (irritable bowel syndrome) Iron deficiency anemia Leg cramps Post-menopausal Pulmonary embolism Shortness of breath on exertion SOB (shortness of breath) Wears dentures Wears glasses Surgical History (Updated 11/14/22 @ 10:[address] Shawnee Cid MD) Bilateral cataracts History of surgical removal of ganglion cyst Hx of colonoscopy menicus right knee repair S/P colectomy S/P hysterectomy Family History (Updated 11/14/22 @ 10:02 by Sita Niño) Father Emphysema lung Heart diseaseMother Hypertension CVA (cerebral vascular accident)Sister Lung cancer Pancreatic cancer DiabetesBrother Pancreatic cancer Hypertension Diabetes Social History Smoking Status: Former smoker second hand exposure: No alcohol intake: never substance use type: does not use arline/quaker: Sabianist of God seatbelt use: always do you feel safe at home: Yes HPI HPI HPI: 81-year-old female presents due to repeat colonoscopy for surveillance. Patient's last colonoscopy was 11/2019 recommended follow-up in 3 years. Patient was diagnosed with colon cancer in April 2018 status post right hemicolectomy. Patient states she does have some issues with IBS periodically will have constipation/diarrhea. Patient does have Bentyl as needed currently taking it in the morning or at night not really 30 minutes before meals. ROS General General: No weight change, appetite, fatigue, colon cancer, breast cancer or weakness HEENT HEENT: No difficulty swallowing, eye injury, eye surgery, swollen glands or hoarseness Endo Endocrine: Yes thyroid disease; No diabetes mellitus, thyroid cancer, Hair loss, heat intolerance or cold intolerance Skin Skin: No rash or changing moles Breast Breast: No left breast lump, right breast lump, nipple discharge, breast pain, abnormal mammogram, abnormal US or breast enlargement Musc Musculoskeletal: No back problems, arthritis, rheumatoid arthritis, gout or joint pain Cardio Cardiovascular: Yes high blood pressure; No murmur, pacemaker, heart disease, atrial fibrillation, heart attack, heart stent, palpitations, shortness of breat with exertion or chest pain Psych Psychiatric: Yes anxiety; No depression or hearing voices Resp Respiratory: Yes shortness of breath, No sleep apnea, No cough, No COPD, No asthma, No emphysema and No wheezing Gastro Gastrointestinal: No abdominal pain, No nausea or vomiting, Yes diarrhea, Yes constipation, No blood in stool, Yes acid reflux, Yes hemorrhoids, No ulcers, No gallbladder problem and No black,tarry stools Additional Details: Intermittent IBS Binh Hematologic: Yes blood thinners, No blood disorders, No bleeding, No anemia and No blood clots Neuro Neurologic: No system reviewed and no additional complaints, except as documented, No as per HPI, No abnormal gait, No abnormal hearing, No abnormal movements, No abnormal speech, No behavioral changes, No burning sensations, No confusion, No convulsions, No disequilibrium, No dizziness, No localized weakness, No frequent falls, No headache(s), No lack of coordination, No loss of vision, No memory loss, Yes numbness, No other visual disturbances, No radicular pain, No restless legs, No sensory deficit, No syncope, Yes tingling, No tremor(s), No weakness and No other Exam Const General: cooperative, healthy appearing and no acute distress HENMT Head: normal to inspection Resp Effort & Inspection: normal respiratory effort Cardio Rate: regular rate GI Inspection: non-distended Palpation: soft, no hernias and nontender Skin General: no rashes or lesions noted Neuro General: patient oriented x3 Extrem General: no clubbing, cyanosis or edema Psych Affect: normal affect Assessment and Plan Assessment and Plan (1) Colon cancer: Status: Chronic Qualifiers: Colon location: ascending Qualified Code(s): C18.2 - Malignant neoplasm of ascending colon (2) S/P colectomy: Status: Acute Comment: 05/01/18 Plan I have discussed the above with the patient. I have offered the patient colonoscopy for evaluation. I have explained the risks/benefits of the procedure and described the procedure. I have discussed the risks with the patient, including but not limited to: infection, bleeding, perforation of the GI tract requiring emergency surgery, inability to complete the procedure, injury to any internal organs, complications of anesthesia, etc. - the patient understands and agrees to proceed. I have answered all the patient's questions to the patient's satisfaction and the patient has no further questions. The patient has been given instructions for the colon cleansing preparation. 1 day of clears, MiraLAX Dulcolax split prep. Shawnee Cid M.D. Pager: [phone] [facility] [place] [address] [place] [address], [facility], [address] [place] [address] Office: [phone] Coding Level of Care Code Off vis,est,level 3 Diagnoses Colon cancer C18.2 Colon location: ascending S/P colectomy Z90.49 11/15/22 0739 <Electronically signed by Shawnee Cid MD> Date Shawnee Cid MD
[2022-12-06 07:48] LABS: INR Fingerstick 1.2; Prothrombin Time Fingerstick 13.6 SEC (11.7-14.9)
[2022-12-06] MEDS: Lactated Ringers 1,000 ML 15 ML IV (08:00)
--- NOTE | 2022-12-06 09:05 | OP.COLON_ITS ---
Patient Name: Dary Mathew Procedure Date: 12/06/2022 8:30 AM Date of : 1940 Age: 81 Procedure: Colonoscopy Indications: High risk colon cancer surveillance: Personal history of colon cancer Providers: Shawnee Cid MD Referring MD: Edgar Austin MD Medicines: Monitored Anesthesia Care Patient Profile: This is an 81 year old female. Last Colonoscopy: 3 years ago. Complications: No immediate complications. Procedure: Pre-Anesthesia Assessment: - Prior to the procedure, a History and Physical was performed, and patient medications and allergies were reviewed. The patient's tolerance of previous anesthesia was also reviewed. The risks and benefits of the procedure and the sedation options and risks were discussed with the patient. All questions were answered, and informed consent was obtained. Prior Anticoagulants: The patient has taken Coumadin (warfarin), last dose was 5 days prior to procedure. ASA Grade Assessment: Per anesthesia. After reviewing the risks and benefits, the patient was deemed in satisfactory condition to undergo the procedure. After I obtained informed consent, the scope was passed under direct vision. Throughout the procedure, the patient's blood pressure, pulse, and oxygen saturations were monitored continuously. The colonoscope was introduced through the anus and advanced to the ileocolonic anastomosis. The colonoscopy was performed without difficulty. The patient tolerated the procedure well. The quality of the bowel preparation was good. Scope In: 8:38:13 AM Scope Withdrawal Time 0 hours 9 minutes 38 seconds Scope Out: 8:57:08 AM Total Procedure Duration Time 0 hours 18 minutes 55 seconds Findings: Hemorrhoids were found on perianal exam. Non-bleeding internal hemorrhoids were found. The hemorrhoids were Grade I (internal hemorrhoids that do not prolapse). Scattered small-mouthed diverticula were found in the sigmoid colon. Previous colonic anastomosis widely patent. The exam was otherwise without abnormality. Impression: - Hemorrhoids found on perianal exam. - Non-bleeding internal hemorrhoids. - Diverticulosis in the sigmoid colon. - The examination was otherwise normal. - No specimens collected. Recommendation: - Discharge patient to home. - High fiber diet. - Continue present medications. - Repeat colonoscopy in 5 years for surveillance. Procedure Code(s): --- Professional --- G0105, PT, Colorectal cancer screening; colonoscopy on individual at high risk Diagnosis Code(s): --- Professional --- Z85.038, Personal history of other malignant neoplasm of large intestine K64.0, First degree hemorrhoids K57.30, Diverticulosis of large intestine without perforation or abscess without bleeding CPT copyright 2017 [employer]. All rights reserved. The codes documented in this report are preliminary and upon manufacturing technician review may be revised to meet current compliance requirements. MD Shawnee Luna MD 12/06/2022 9:05:28 AM This report has been signed electronically. Number of Addenda: 0 Note Initiated On: 12/06/2022 8:30 AM
--- NOTE | 2022-12-06 09:06 | OP.CCLET_ITS ---
12/06/2022 Edgar Austin MD [address] [place] [address] Re : Colonoscopy procedure for Dary Mathew Dear Dr. Austin This procedure was performed on Tuesday, December 06, 2022. My impressions and recommendations are as follows: Impressions : - Hemorrhoids found on perianal exam. - Non-bleeding internal hemorrhoids. - Diverticulosis in the sigmoid colon. - The examination was otherwise normal. - No specimens collected. Recommendations : - Discharge patient to home. - High fiber diet. - Continue present medications. - Repeat colonoscopy in 5 years for surveillance. My findings are described in the full procedure note, which is enclosed. If I can be of further assistance, please feel free to contact me at Doctor phone number(s): , Work: . Sincerely, MD Shawnee Luna MD 12/06/2022 9:05:28 AM This report has been signed electronically.
== END 2022-12-06 09:53 | disposition home or self-care (01) ==
LOC: EN 07:23 → AC 07:24
PROVIDERS: PCP Family Medicine; Referring Provider Family Medicine; Visit Provider Surgery
PROC: 0DJD8ZZ Inspection of Lower Intestinal Tract, Via Natural or Artificial Opening Endoscopic (ICD-10-PCS; CPT 45378; principal; 2022-12-06 08:40)
DX: Z12.11 Encounter for screening for malignant neoplasm of colon (principal); K64.0 First degree hemorrhoids; I10 Essential (primary) hypertension; Z80.0 Family history of malignant neoplasm of digestive organs; Z90.49 Acquired absence of other specified parts of digestive tract; Z87.891 Personal history of nicotine dependence; K57.30 Diverticulosis of large intestine without perforation or abscess without bleeding; Z85.038 Personal history of other malignant neoplasm of large intestine; Z79.899 Other long term (current) drug therapy; Z79.01 Long term (current) use of anticoagulants; K21.9 Gastro-esophageal reflux disease without esophagitis
CPT/HCPCS: G0105; 36416; 85610; J7120; J2405

== ENCOUNTER → 2023-01-26 | Outpatient (CLI) | payer MEDICARE, SELFPAY ==
[2023-01-26 13:18] LABS: Cholesterol 135 mg/dL (200); Free T3 2.1 pg/mL (2.18-3.98); High Density Lipoprotein 40 mg/dL; Thyroid Stim Hormone (TSH) 0.22 uIU/mL (0.358-3.74); Triglycerides 108 mg/dL; Very Low Density Lipoprotein 22 mg/dL (5-40)
[2023-01-27 08:10] LABS: Carcinoembryonic Antigen 7.6 ng/mL (0.0-4.7)
== END | disposition home or self-care (01) ==
LOC: MTLAB 10:36
PROVIDERS: Internal Medicine Hematology & Oncology; PCP Family Medicine; Referring Provider Family Medicine; Visit Provider Family Medicine
DX: C18.2 Malignant neoplasm of ascending colon (principal); E78.5 Hyperlipidemia, unspecified
CPT/HCPCS: 36415; 80061; 82378; 84443; 84481

== ENCOUNTER → 2023-04-30 | Outpatient (CLI) | payer MEDICARE, SELFPAY ==
[2023-04-30 16:28] LABS: ALB/GLOB Ratio 0.9 RATIO (0.9-2.4); AST(SGOT) 19 U/L (15-37); Alanine Aminotransfer ALT/SGPT 20 U/L (13-56); Albumin, Serum 3.6 g/dL (3.2-5.0); Alkaline Phosphatase 101 U/L (45-117); Anion Gap 6 (5-15); BUN 24 mg/dL (7-18); BUN/Creat Ratio 22.6 RATIO (10-20); Calcium,Total 8.6 mg/dL (8.5-10.1); Chloride 110 mmol/L (98-107); Cholesterol 199 mg/dL (200); Creatinine, Serum 1.06 mg/dL (0.55-1.02); EST Glomerular Filtration Rate 53 mL/min (>60); Est Glom Filt Rate - Afr Amer 64 mL/min (>60); Free T3 2.3 pg/mL (2.18-3.98); Glucose 100 mg/dL (74-106); High Density Lipoprotein 45 mg/dL; Potassium 4.5 mmol/L (3.5-5.1); Protein, Total 7.6 g/dL (6.4-8.2); Sodium Level 140 mmol/L (136-145); T4 Free Direct 1.17 ng/dL (0.76-1.46); Thyroid Stim Hormone (TSH) 0.24 uIU/mL (0.358-3.74); Triglycerides 310 mg/dL; Very Low Density Lipoprotein 62 mg/dL (5-40)
== END | disposition home or self-care (01) ==
LOC: MFPLAB 13:57
PROVIDERS: PCP Family Medicine; Visit Provider Family Medicine
DX: E03.9 Hypothyroidism, unspecified (principal); E78.5 Hyperlipidemia, unspecified
CPT/HCPCS: 36415; 80053; 80061; 84439; 84443; 84481

== ENCOUNTER → 2023-08-06 | Outpatient (CLI) | payer MEDICARE, SELFPAY ==
[2023-08-06 13:45] LABS: Free T3 2.2 pg/mL (2.18-3.98); T4 Free Direct 1.11 ng/dL (0.76-1.46); Thyroid Stim Hormone (TSH) 0.29 uIU/mL (0.358-3.74)
== END | disposition home or self-care (01) ==
LOC: MFPLAB 10:23
PROVIDERS: PCP Family Medicine; Visit Provider Family Medicine
DX: E03.9 Hypothyroidism, unspecified (principal)
CPT/HCPCS: 36415; 84439; 84443; 84481

== ENCOUNTER → 2024-01-25 | Outpatient (CLI) | payer MEDICARE, SELFPAY ==
[2024-02-03 10:07] LABS: Alternaria tenuis <0.10 kU/L (Class 0); Ash, White <0.10 kU/L (Class 0); Aspergillus fumigatus <0.10 kU/L (Class 0); Bermuda Grass <0.10 kU/L (Class 0); Birch <0.10 kU/L (Class 0); Black Walnut <0.10 kU/L (Class 0); Cat Hair / Dander,Stand <0.10 kU/L (Class 0); Cedar, Mountain <0.10 kU/L (Class 0); Cladosporium herbarum <0.10 kU/L (Class 0); Cockroach, American <0.10 kU/L (Class 0); Cottonwood <0.10 kU/L (Class 0); D farinae Mite <0.10 kU/L (Class 0); D pteronyssinus <0.10 kU/L (Class 0); Dog Epithelia <0.10 kU/L (Class 0); Elm, American White <0.10 kU/L (Class 0); Immunoglobulin E 4 IU/mL (6-495); Maple/Box Elder <0.10 kU/L (Class 0); Mouse Urine <0.10 kU/L (Class 0); Mulberry, White <0.10 kU/L (Class 0); Oak, White <0.10 kU/L (Class 0); Pecan <0.10 kU/L (Class 0); Penicillium Notatum <0.10 kU/L (Class 0); Pigweed, Rough <0.10 kU/L (Class 0); Ragweed, Short/Common <0.10 kU/L (Class 0); Russian Thistle <0.10 kU/L (Class 0); Sheep Sorrel <0.10 kU/L (Class 0); Sycamore, American <0.10 kU/L (Class 0); Timothy Grass <0.10 kU/L (Class 0)
== END | disposition home or self-care (01) ==
LOC: MFPLAB 14:21
PROVIDERS: PCP Family Medicine; Visit Provider Family Medicine
DX: T78.40XA Allergy, unspecified, initial encounter (principal); X58.XXXA Exposure to other specified factors, initial encounter
CPT/HCPCS: 36415; 82785; 86003

== ENCOUNTER → 2024-02-28 | Outpatient (CLI) | payer MEDICARE, SELFPAY ==
--- NOTE | 2024-02-28 14:19 | CT_ITS ---
STUDY: CT MAXILLOFACIAL SINUSES REASON FOR EXAM: Female, 83 years old. SINUSITIS RADIATION DOSAGE (If Supplied By Facility): CTDIvol = ( 33.06 ) mGy, DLP = ( 664.43 ) mGycm TECHNIQUE: The patient was scanned in a multi detector CT scanner. High resolution axial imaging was performed without the administration of intravenous contrast material. Sagittal and coronal images were reconstructed. Individualized dose optimization techniques were used for this CT. COMPARISON: None. FINDINGS: FRONTAL SINUSES: Normal aeration, without mucosal inflammatory disease. ETHMOIDAL SINUSES: Normal aeration, without mucosal inflammatory disease. MAXILLARY SINUSES: Normal aeration, without mucosal inflammatory disease. SPHENOIDAL SINUSES: Normal aeration, without mucosal inflammatory disease. There is patency of the bilateral maxillary infundibuli with normal uncinate processes, ethmoid bullae, and hiatus semilunaris. Normal bilateral middle turbinates. Normal bilateral inferior turbinates. Normal midline nasal septum. There is patency of the bilateral nasal airways. The visualized osseous structures are normal. The visualized bilateral orbital contents are normal. CT/Sinus/Facial Bone IMPRESSION: Normal CT examination of the maxillofacial sinuses. Electronically Signed: Minh May MD at 13:48 EDT ,
== END | disposition home or self-care (01) ==
LOC: CT 14:14
PROVIDERS: PCP Family Medicine; Referring Provider Family Medicine; Visit Provider Family Medicine
DX: J32.9 Chronic sinusitis, unspecified (principal)
CPT/HCPCS: 70486

== ENCOUNTER 2024-03-18 05:58 | Day surgery (SDC) | payer MEDICARE, SELFPAY ==
[2024-03-18] VITALS (7 sets, daily range): BP systolic 108–161; BP diastolic 61–73; PULSE 74–97; RESP 16–17; TEMP 36.2–36.6; O2SAT 95–97; BMI 29.5
--- OUTSIDE RECORDS SUMMARY | 2024-03-18 06:01 | XMS RPT_ITS | CCD ---
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 Unavailable Unavailable Tolentino, Edgar Levine Unavailable Unavailable Tolentino, Edgar Ceron. Unavailable Unavailable Tolentino, Edgar Ceron. Unavailable Unavailable Tolentino, Edgar Ceron. Unavailable Unavailable Tolentino, Egdar Ceron. Unavailable Unavailable Tolentino, Edgar Ceron. Unavailable Unavailable RANDA BOSWELL, DR EDGAR Ceron Attending Unavailabl e RANDA BOSWELL, DR EDGAR Ceron Primary Care Unavailabl e RANDA, EDGAR Ceron Primary Care Unavailable TOLENTINO, EDGAR Ceron Referring Unavailable TOLENTINO, EDGAR Ceron Primary Care Unavailable TOLENTINO, EDGAR Ceron Referring Unavailable TOLENTINO, EDGAR Ceron Primary Care Unavailable TOLENTINO, EDGAR Ceron Referring Unavailable TOLENTINO, EDGAR Ceron Primary Care Unavailable TOLENTINO, EDGAR Ceron Referring Unavailable TOLENTINO, EDGAR Ceron Primary Care Unavailable TOLENTINO, EDGAR Ceron Referring Unavailable TOLENTINO, EDGAR Ceron Primary Care Unavailable TOLENTINO, EDGAR Ceron Referring Unavailable TOLENTINO, EDGAR Ceron Primary Care Unavailable TOLENTINO, EDGAR Ceron Referring Unavailable TOLENTINO, EDGAR Ceron Primary Care Unavailable TOLENTINO, EDGAR Ceron Referring Unavailable TOLENTINO, EDGAR Ceron Primary Care Unavailable TOLENTINO, EDGAR Ceron Referring Unavailable TOLENTINO, EDGAR Ceron Primary Care Unavailable Allergies Allergy Classification Reported Allergen(s) Allergy Type Date of Onset Reaction(s) Facility (1 source) Alendronate; Translations: [ALENDRONATE SODIUM] Drug Allergy 02-02-2015 [facility] Repository (1 source) RABEprazole; Translations: [RABEPRAZOLE SODIUM] Drug Allergy 02-02-2015 [facility] Repository Problems Active Problems Problem Classification Problem Date Documented Da te Episodic/Chronic Unclassified (1 source) Unknown / UNK(Unknown) Onset: 12-18-2016 Past or Other Problems Problem Classification Problem Date Documented Da te Episodic/Chronic Other complications of (1 source) Deep phlebothrombosis in , unspecified trimester; Translations: [Deep phlebothrombosis, antepartum, with delivery (HCC)] Onset: 4 Episodic Phlebitis; thrombophlebitis and thromboembolism (2 sources) Deep venous thrombosis; Translations: [Acute embolism and thrombosis of unspecified deep veins of unspecified lower extremity] Onset: 7 Episodic Results Test Name Value Interpretation Reference Range [facility] PT panel Coag (PPP)on 2023 INR Coag (PPP) [Relative time] 2.4 {INR} High 0.8-1.2 [facility] Comment on above: Order Comment: Specimen Type: BLOOD SPEC IMEN [facility]ing Facility: [facility] Address: [address] [facility], [place] [address] Result Comment: Deidre min K Antagonist (VKA) Therapeutic Range: INR 2 to 3 (Target INR of 2.5) Note: For patients treated with VKA drugs, such as warfarin, the [employer] [employer] 2012 Guideline recommends a therapeutic INR range of 2 to 3 (target INR of 2.5). This recommendation includes high-risk patients with antiphospholipid syndrome with previous arterial or venous thromboembolism, current-generation mechanical or bioprosthetic aortic heart valve replacement. Note: Patients with mechanical aortic valve replacement and additional risk factors for thromboembolic events (atrial fibrillation, previous thromboembolism, LV dysfunction, hypercoagulable conditions) or an older generation mechanical AVR (i.e., ball in-Cage) or any mechanical MVR should have a INR therapeutic range of 2.5 to 3.5 (target INR of 3). Mey GH, et al. Chest 2012, 141:7S-47S Liss RA, et al. [facility] 2017, 70: 252-289 Performed By: #### 3 4528-0 #### [facility] [place] [facility] CLIA [id number] [address] [facility] [address] [place] [address] [place] PT Coag (PPP) [Time] 29.2 s High 10.1-15.1 [facility] Comment on above: Order Comment: Specimen Type: BLOOD SPEC IMEN Ordering Facility: [facility] Address: [address], [place] [address] Performed By: #### 3 4528-0 #### [facility] [place] [facility] CLIA [id number] [address] [facility] [address] [place] [address] [facility] PT panel Coag (PPP)on 2023 INR Coag (PPP) [Relative time] 1.6 {INR} High 0.8-1.2 [facility] Comment on above: Order Comment: Specimen Type: BLOOD SPEC IMEN Ordering Facility: [facility] Address: [address], [place] [phone] Result Comment: Deidre min K Antagonist (VKA) Therapeutic Range: INR 2 to 3 (Target INR of 2.5) Note: For patients treated with VKA drugs, such as warfarin, the [employer] [employer] 2012 Guideline recommends a therapeutic INR range of 2 to 3 (target INR of 2.5). This recommendation includes high-risk patients with antiphospholipid syndrome with previous arterial or venous thromboembolism, current-generation mechanical or bioprosthetic aortic heart valve replacement. Note: Patients with mechanical aortic valve replacement and additional risk factors for thromboembolic events (atrial fibrillation, previous thromboembolism, LV dysfunction, hypercoagulable conditions) or an older generation mechanical AVR (i.e., ball in-Cage) or any mechanical MVR should have a INR therapeutic range of 2.5 to 3.5 (target INR of 3). Mey GH, et al. Chest 2012, 141:7S-47S Liss RA, et al. [facility] 2017, 70: 252-289 Performed By: #### 3 4528-0 #### [facility] [place] [id number] [address] [facility] [address] [place] [address] [place] PT Coag (PPP) [Time] 19.5 s High 10.1-15.1 [facility] Comment on above: Order Comment: Specimen Type: BLOOD SPEC IMEN Ordering Facility: [facility] Address: [address], [place] [address] Performed By: #### 3 4528-0 #### [facility] CLIA [id number] [address] [facility] [address] [place] [address] [facility] PT panel Coag (PPP)on 10-02- 2024 INR Coag (PPP) [Relative time] 3.6 {INR} High 0.8-1.2 [facility] Comment on above: Order Comment: Specimen Type: BLOOD SPEC IMEN Ordering Facility: [facility] Address: [address], [place] [phone] Result Comment: Deidre min K Antagonist (VKA) Therapeutic Range: INR 2 to 3 (Target INR of 2.5) Note: For patients treated with VKA drugs, such as warfarin, the [place] [employer] 2012 Guideline recommends a therapeutic INR range of 2 to 3 (target INR of 2.5). This recommendation includes high-risk patients with antiphospholipid syndrome with previous arterial or venous thromboembolism, current-generation mechanical or bioprosthetic aortic heart valve replacement. Note: Patients with mechanical aortic valve replacement and additional risk factors for thromboembolic events (atrial fibrillation, previous thromboembolism, LV dysfunction, hypercoagulable conditions) or an older generation mechanical AVR (i.e., ball in-Cage) or any mechanical MVR should have a INR therapeutic range of 2.5 to 3.5 (target INR of 3). Mey MICHELLE, et al. Chest 2012, 141:7S-47S Liss RA, et al. [facility] 2017, 70: 252-289 Performed By: #### 3 4528-0 #### [facility] [id number] [address] [facility]ATION[facility] [address] [address] [place] PT Coag (PPP) [Time] 43.0 s High 10.1-15.1 [facility] Comment on above: Order Comment: Specimen Type: BLOOD SPEC IMEN Ordering Facility: [facility] Address: [address], [place] [address] Performed By: #### 3 4528-0 #### [facility] [place] [id number] [address] [employer] [address] [address] [place] PT panel Coag (PPP)on 2023 INR Coag (PPP) [Relative time] 3.2 {INR} High 0.8-1.2 [facility] Comment on above: Order Comment: Specimen Type: BLOOD SPEC IMEN Ordering Facility: [facility] Address: [facility] [place] [address] Result Comment: Deidre min K Antagonist (VKA) Therapeutic Range: INR 2 to 3 (Target INR of 2.5) Note: For patients treated with VKA drugs, such as warfarin, the [place] [employer] 2012 Guideline recommends a therapeutic INR range of 2 to 3 (target INR of 2.5). This recommendation includes high-risk patients with antiphospholipid syndrome with previous arterial or venous thromboembolism, current-generation mechanical or bioprosthetic aortic heart valve replacement. Note: Patients with mechanical aortic valve replacement and additional risk factors for thromboembolic events (atrial fibrillation, previous thromboembolism, LV dysfunction, hypercoagulable conditions) or an older generation mechanical AVR (i.e., ball in-Cage) or any mechanical MVR should have a INR therapeutic range of 2.5 to 3.5 (target INR of 3). Mey MICHELLE, et al. Chest 2012, 141:7S-47S Liss RA, et al. [facility] 2017, 70: 252-289 Performed By: #### 3 4528-0 #### [facility] CLIA [id number] [address] [place] [address] [place] PT Coag (PPP) [Time] 38.9 s High 10.1-15.1 [facility] Comment on above: Order Comment: Specimen Type: BLOOD SPEC IMEN Ordering Facility: [facility] Address: [address] [place] [address] Performed By: #### 3 4528-0 #### [facility] CLIA [id number] [address] [place] [address] [place] PT panel Coag (PPP)on 2023 INR Coag (PPP) [Relative time] 3.2 {INR} High 0.8-1.2 [facility] Comment on above: Order Comment: Specimen Type: BLOOD SPEC IMEN Ordering Facility: [facility] Address: [facility] [place] [address] Result Comment: Deidre min K Antagonist (VKA) Therapeutic Range: INR 2 to 3 (Target INR of 2.5) Note: For patients treated with VKA drugs, such as warfarin, the [place] [employer] 2012 Guideline recommends a therapeutic INR range of 2 to 3 (target INR of 2.5). This recommendation includes high-risk patients with antiphospholipid syndrome with previous arterial or venous thromboembolism, current-generation mechanical or bioprosthetic aortic heart valve replacement. Note: Patients with mechanical aortic valve replacement and additional risk factors for thromboembolic events (atrial fibrillation, previous thromboembolism, LV dysfunction, hypercoagulable conditions) or an older generation mechanical AVR (i.e., ball in-Cage) or any mechanical MVR should have a INR therapeutic range of 2.5 to 3.5 (target INR of 3). Mey GH, et al. Chest 2012, 141:7S-47S Liss RA, et al. [facility] 2017, 70: 252-289 Performed By: #### 3 4528-0 #### [facility] [place] [facility] CLIA [id number] [address] [address] [place] PT Coag (PPP) [Time] 38.9 s High 10.1-15.1 [facility] Comment on above: Order Comment: Specimen Type: BLOOD SPEC IMEN [facility]ing [facility]: [facility] Address: [address] [place] [id number] Performed By: #### 3 4528-0 #### [facility] CLIA [id number] [address] [facility] [address] [place] [address] [facility] OF [place] PT panel Coag (PPP)on 2023 INR Coag (PPP) [Relative time] 3.1 {INR} High 0.8-1.2 [facility] Comment on above: Order Comment: Specimen Type: BLOOD SPEC IMEN Ordering Facility: [facility] Address: [address] [place] [phone] Result Comment: Deidre min K Antagonist (VKA) Therapeutic Range: INR 2 to 3 (Target INR of 2.5) Note: For patients treated with VKA drugs, such as warfarin, the [place] [employer] 2012 Guideline recommends a therapeutic INR range of 2 to 3 (target INR of 2.5). This recommendation includes high-risk patients with antiphospholipid syndrome with previous arterial or venous thromboembolism, current-generation mechanical or bioprosthetic aortic heart valve replacement. Note: Patients with mechanical aortic valve replacement and additional risk factors for thromboembolic events (atrial fibrillation, previous thromboembolism, LV dysfunction, hypercoagulable conditions) or an older generation mechanical AVR (i.e., ball in-Cage) or any mechanical MVR should have a INR therapeutic range of 2.5 to 3.5 (target INR of 3). Mey GH, et al. Chest 2012, 141:7S-47S Liss RA, et al. [facility] 2017, 70: 252-289 Performed By: #### 3 4528-0 #### [facility] [id number] [address] [place] [address] [place] PT Coag (PPP) [Time] 37.3 s High 10.1-15.1 [facility] Comment on above: Order Comment: Specimen Type: BLOOD SPEC IMEN Ordering Facility: [facility] Address: [address] [place], [place] [id number] Performed By: #### 3 4528-0 #### [facility] [id number] [address] OF [facility] PT panel Coag (PPP)on 2023 INR Coag (PPP) [Relative time] 2.2 {INR} High 0.9-1.3 [facility] Comment on above: Order Comment: Specimen Type: BLOOD SPEC IMEN Ordering Facility: [facility] Address: [address] [place] [address] Result Comment: Deidre min K Antagonist (VKA) Therapeutic Range: INR 2 to 3 (Target INR of 2.5) Note: For patients treated with VKA drugs, such as warfarin, the [place] [employer] 2012 Guideline recommends a therapeutic INR range of 2 to 3 (target INR of 2.5). This recommendation includes high-risk patients with antiphospholipid syndrome with previous arterial or venous thromboembolism, current-generation mechanical or bioprosthetic aortic heart valve replacement. Note: Patients with mechanical aortic valve replacement and additional risk factors for thromboembolic events (atrial fibrillation, previous thromboembolism, LV dysfunction, hypercoagulable conditions) or an older generation mechanical AVR (i.e., ball in-Cage) or any mechanical MVR should have a INR therapeutic range of 2.5 to 3.5 (target INR of 3). Mey MICHELLE, et al. Chest 2012, 141:7S-47S Liss RA, et al. [facility] 2017, 70: 252-289 Performed By: #### 3 4528-0 #### [facility] CLIA [id number] [address] [place], [place] [id number] [place] PT Coag (PPP) [Time] 22.7 s High 9.7-13.0 [facility] Comment on above: Order Comment: Specimen Type: BLOOD SPEC IMEN [facility]ing [facility] Address: [address] [place] [address] Performed By: #### 3 4528-0 #### [facility] CLIA [id number] [address] [place], [place] [address] [place] PT panel Coag (PPP)on 2023 INR Coag (PPP) [Relative time] 2.2 {INR} High 0.9-1.3 [facility] Comment on above: Order Comment: Specimen Type: BLOOD SPEC IMEN Ordering Facility[facility] Address: [address] [place] [address] Result Comment: Deidre min K Antagonist (VKA) Therapeutic Range: INR 2 to 3 (Target INR of 2.5) Note: For patients treated with VKA drugs, such as warfarin, the [place] [employer] 2012 Guideline recommends a therapeutic INR range of 2 to 3 (target INR of 2.5). This recommendation includes high-risk patients with antiphospholipid syndrome with previous arterial or venous thromboembolism, current-generation mechanical or bioprosthetic aortic heart valve replacement. Note: Patients with mechanical aortic valve replacement and additional risk factors for thromboembolic events (atrial fibrillation, previous thromboembolism, LV dysfunction, hypercoagulable conditions) or an older generation mechanical AVR (i.e., ball in-Cage) or any mechanical MVR should have a INR therapeutic range of 2.5 to 3.5 (target INR of 3). Mey MICHELLE et wilson. Chest 2012, 141:7S-47S Liss BALDWIN et al. [facility] 2017, 70: 252-289 Performed By: #### 3 4528-0 #### [facility] CLIA [id number] [address] [place], [place] [id number] [place] [facility] PT Coag (PPP) [Time] 22.3 s High 9.7-13.0 [facility] Comment on above: Order Comment: Specimen Type: BLOOD SPEC IMEN [facility] Address: [address] [facility] [address], [place] [address] Performed By: #### 3 4528-0 #### [facility] CLIA [id number] [address] [place] [address] [facility] PT panel Coag (PPP)on 2023 INR Coag (PPP) [Relative time] 1.8 {INR} High 0.9-1.3 [facility] Comment on above: Order Comment: Specimen Type: BLOOD SPEC IMEN Ordering [facility] Address: [facility] [address] DATGenie [address], [place] [phone] Result Comment: Deidre min K Antagonist (VKA) Therapeutic Range: INR 2 to 3 (Target INR of 2.5) Note: For patients treated with VKA drugs, such as warfarin, the [place] [employer] 2012 Guideline recommends a therapeutic INR range of 2 to 3 (target INR of 2.5). This recommendation includes high-risk patients with antiphospholipid syndrome with previous arterial or venous thromboembolism, current-generation mechanical or bioprosthetic aortic heart valve replacement. Note: Patients with mechanical aortic valve replacement and additional risk factors for thromboembolic events (atrial fibrillation, previous thromboembolism, LV dysfunction, hypercoagulable conditions) or an older generation mechanical AVR (i.e., ball in-Cage) or any mechanical MVR should have a INR therapeutic range of 2.5 to 3.5 (target INR of 3). chuck Dunn. Chest 2012, 141:7S-47S Liss BALDWIN et al. [facility] 2017, 70: 252-289 Performed By: #### 3 4528-0 #### [facility] CLIA [id number] [address] [place] [address] [facility] PT Coag (PPP) [Time] 18.3 s High 9.7-13.0 [facility] Comment on above: Order Comment: Specimen Type: BLOOD SPEC IMEN [facility] Address: [address] , [place] [phone] Performed By: #### 3 4528-0 #### [facility] CLIA [id number] [address] [place] [address] [facility] PROon 10-04-2023 INR Coag (PPP) [Relative time] 2.5 {INR} Normal [facility] ([place]) Comment on above: Result Comment: The [place] [employer] (CHEST, 1991, 102:312S-25S) recommended therapeutic range for oral anticoagulant therapy is: LOW RISK: Prophylaxis of venous thrombosis INR: 2.0-3.0 Treatment of pulmonary embolism 2.0-3.0 Prevention of systemic embolism 2.0-3.0 HIGH RISK: Mechanical prosthetic valves 2.5-3.5 Performed By: #### P RO #### [address] [address] PT Coag (PPP) [Time] 28.5 s High 9.0-14.4 [facility] ([place]) Comment on above: Result Comment: Effective 12/10/07, Prot marlena results may be affected by some antibiotics (i.e. Ciprofloxacin, Azithromycin, Bactrim) which may potentiate the action of oral anticoagulants, with further increases in Protime/INR. Performed By: #### P RO #### [facility] [address] [place] [address] PROon 09-05-2023 INR Coag (PPP) [Relative time] 2.9 {INR} Normal [facility] ([place]) Comment on above: Result Comment: The [place] [employer] (CHEST, 1991, 102:312S-25S) recommended therapeutic range for oral anticoagulant therapy is: LOW RISK: Prophylaxis of venous thrombosis INR: 2.0-3.0 Treatment of pulmonary embolism 2.0-3.0 Prevention of systemic embolism 2.0-3.0 HIGH RISK: Mechanical prosthetic valves 2.5-3.5 Performed By: #### P RO #### [address] [address] PT Coag (PPP) [Time] 33.3 s High 9.0-14.2 [facility] ([place]) Comment on above: Result Comment: Effective 12/10/07, Prot marlena results may be affected by some antibiotics (i.e. Ciprofloxacin, Azithromycin, Bactrim) which may potentiate the action of oral anticoagulants, with further increases in Protime/INR. Performed By: #### P RO #### [place] [id number] PROon 08-24-2023 INR Coag (PPP) [Relative time] 2.3 {INR} Normal [facility] ([place]) Comment on above: Result Comment: The [place] [employer] (CHEST, 1991, 102:312S-25S) recommended therapeutic range for oral anticoagulant therapy is: LOW RISK: Prophylaxis of venous thrombosis INR: 2.0-3.0 Treatment of pulmonary embolism 2.0-3.0 Prevention of systemic embolism 2.0-3.0 HIGH RISK: Mechanical prosthetic valves 2.5-3.5 Performed By: #### P RO #### [address] [address] PT Coag (PPP) [Time] 27.2 s High 9.0-14.2 [facility] ([place]) Comment on above: Result Comment: Effective 12/10/07, Prot marlena results may be affected by some antibiotics (i.e. Ciprofloxacin, Azithromycin, Bactrim) which may potentiate the action of oral anticoagulants, with further increases in Protime/INR. Performed By: #### P RO #### [place] [address] PROon 07-26-2023 INR Coag (PPP) [Relative time] 2.2 {INR} Normal [facility] ([place]) Comment on above: Result Comment: The [place] [employer] (CHEST, 1991, 102:312S-25S) recommended therapeutic range for oral anticoagulant therapy is: LOW RISK: Prophylaxis of venous thrombosis INR: 2.0-3.0 Treatment of pulmonary embolism 2.0-3.0 Prevention of systemic embolism 2.0-3.0 HIGH RISK: Mechanical prosthetic valves 2.5-3.5 Performed By: #### P RO #### [address] [address] PT Coag (PPP) [Time] 25.6 s High 9.0-14.2 [facility] ([place]) Comment on above: Result Comment: Effective 12/10/07, Prot marlena results may be affected by some antibiotics (i.e. Ciprofloxacin, Azithromycin, Bactrim) which may potentiate the action of oral anticoagulants, with further increases in Protime/INR. Performed By: #### P RO #### [place] [address] PROon 06-28-2023 INR Coag (PPP) [Relative time] 2.0 {INR} Normal [facility] ([place]) Comment on above: Result Comment: The [place] [employer] (CHEST, 1991, 102:312S-25S) recommended therapeutic range for oral anticoagulant therapy is: LOW RISK: Prophylaxis of venous thrombosis INR: 2.0-3.0 Treatment of pulmonary embolism 2.0-3.0 Prevention of systemic embolism 2.0-3.0 HIGH RISK: Mechanical prosthetic valves 2.5-3.5 Performed By: #### P RO #### [address] [address] PT Coag (PPP) [Time] 22.5 s High 9.0-14.2 [facility] ([place]) Comment on above: Result Comment: Effective 12/10/07, Prot marlena results may be affected by some antibiotics (i.e. Ciprofloxacin, Azithromycin, Bactrim) which may potentiate the action of oral anticoagulants, with further increases in Protime/INR. Performed By: #### P RO #### [address] [address] PROon 05-31-2023 INR Coag (PPP) [Relative time] 2.2 {INR} Normal [facility] ([place]) Comment on above: Result Comment: The [place] [employer] (CHEST, 1992, 102:312S-25S) recommended therapeutic range for oral anticoagulant therapy is: LOW RISK: Prophylaxis of venous thrombosis INR: 2.0-3.0 Treatment of pulmonary embolism 2.0-3.0 Prevention of systemic embolism 2.0-3.0 HIGH RISK: Mechanical prosthetic valves 2.5-3.5 Performed By: #### P RO #### [address] [address] PT Coag (PPP) [Time] 26.0 s High 9.0-14.2 [facility] ([place]) Comment on above: Result Comment: Effective 12/10/07, Prot marlena results may be affected by some antibiotics (i.e. Ciprofloxacin, Azithromycin, Bactrim) which may potentiate the action of oral anticoagulants, with further increases in Protime/INR. Performed By: #### P RO #### [place] [id number] PROon 04-02-2023 INR Coag (PPP) [Relative time] 2.6 {INR} Normal [facility] ([place]) Comment on above: Result Comment: [employer] (CHEST, 1992, 102:312S-25S) recommended therapeutic range for oral anticoagulant therapy is: LOW RISK: Prophylaxis of venous thrombosis INR: 2.0-3.0 Treatment of pulmonary embolism 2.0-3.0 Prevention of systemic embolism 2.0-3.0 HIGH RISK: Mechanical prosthetic valves 2.5-3.5 Performed By: #### P RO #### [address] [address] PT Coag (PPP) [Time] 30.3 s High 9.0-14.2 [facility] ([place]) Comment on above: Result Comment: Effective 12/10/07, Prot marlena results may be affected by some antibiotics (i.e. Ciprofloxacin, Azithromycin, Bactrim) which may potentiate the action of oral anticoagulants, with further increases in Protime/INR. Performed By: #### P RO #### [address] [address] PROon 03-12-2023 INR Coag (PPP) [Relative time] 2.6 {INR} Normal [facility] ([place]) Comment on above: Result Comment: [employer] (CHEST, 1992, 102:312S-25S) recommended therapeutic range for oral anticoagulant therapy is: LOW RISK: Prophylaxis of venous thrombosis INR: 2.0-3.0 Treatment of pulmonary embolism 2.0-3.0 Prevention of systemic embolism 2.0-3.0 HIGH RISK: Mechanical prosthetic valves 2.5-3.5 Performed By: #### P RO #### [address] [address] PT Coag (PPP) [Time] 30.6 s High 9.0-14.2 [facility] ([place]) Comment on above: Result Comment: Effective 12/10/07, Prot marlena results may be affected by some antibiotics (i.e. Ciprofloxacin, Azithromycin, Bactrim) which may potentiate the action of oral anticoagulants, with further increases in Protime/INR. Performed By: #### P RO #### [place] [address] PROon 02-26-2023 INR Coag (PPP) [Relative time] 2.7 {INR} Normal [facility] ([place]) Comment on above: Result Comment: [employer] (CHEST, 1992, 102:312S-25S) recommended therapeutic range for oral anticoagulant therapy is: LOW RISK: Prophylaxis of venous thrombosis INR: 2.0-3.0 Treatment of pulmonary embolism 2.0-3.0 Prevention of systemic embolism 2.0-3.0 HIGH RISK: Mechanical prosthetic valves 2.5-3.5 Performed By: #### P RO #### [address] [address] PT Coag (PPP) [Time] 31.3 s High 9.0-14.2 [facility] ([place]) Comment on above: Result Comment: Effective 12/10/07, Prot marlena results may be affected by some antibiotics (i.e. Ciprofloxacin, Azithromycin, Bactrim) which may potentiate the action of oral anticoagulants, with further increases in Protime/INR. Performed By: #### P RO #### [address] [address] PROon 02-19-2023 INR Coag (PPP) [Relative time] 3.3 {INR} Normal [facility] ([place]) Comment on above: Result Comment: [employer] (CHEST, 1992, 102:312S-25S) recommended therapeutic range for oral anticoagulant therapy is: LOW RISK: Prophylaxis of venous thrombosis INR: 2.0-3.0 Treatment of pulmonary embolism 2.0-3.0 Prevention of systemic embolism 2.0-3.0 HIGH RISK: Mechanical prosthetic valves 2.5-3.5 Performed By: #### P RO #### [address] [address] PT Coag (PPP) [Time] 38.2 s High 9.0-14.2 [facility] ([place]) Comment on above: Result Comment: Effective 12/10/07, Prot marlena results may be affected by some antibiotics (i.e. Ciprofloxacin, Azithromycin, Bactrim) which may potentiate the action of oral anticoagulants, with further increases in Protime/INR. Performed By: #### P RO #### [place] [address] PROon 02-09-2023 INR Coag (PPP) [Relative time] 3.5 {INR} Normal [facility] ([place]) Comment on above: Result Comment: [employer] (CHEST, 1992, 102:312S-25S) recommended therapeutic range for oral anticoagulant therapy is: LOW RISK: Prophylaxis of venous thrombosis INR: 2.0-3.0 Treatment of pulmonary embolism 2.0-3.0 Prevention of systemic embolism 2.0-3.0 HIGH RISK: Mechanical prosthetic valves 2.5-3.5 Performed By: #### P RO #### [address] [address] PT Coag (PPP) [Time] 41.4 s High 9.0-14.2 [facility] ([place]) Comment on above: Result Comment: Effective 12/10/07, Prot marlena results may be affected by some antibiotics (i.e. Ciprofloxacin, Azithromycin, Bactrim) which may potentiate the action of oral anticoagulants, with further increases in Protime/INR. Performed By: #### P RO #### [place] [id number] PROon 01-19-2023 INR Coag (PPP) [Relative time] 2.6 {INR} Normal [facility] ([place]) Comment on above: Result Comment: [employer] (CHEST, 1992, 102:312S-25S) recommended therapeutic range for oral anticoagulant therapy is: LOW RISK: Prophylaxis of venous thrombosis INR: 2.0-3.0 Treatment of pulmonary embolism 2.0-3.0 Prevention of systemic embolism 2.0-3.0 HIGH RISK: Mechanical prosthetic valves 2.5-3.5 Performed By: #### P RO #### [address] [address] PT Coag (PPP) [Time] 30.8 s High 9.0-14.2 [facility] ([place]) Comment on above: Performed By: #### PRO #### [place] [id number] PROon 01-05-2023 INR Coag (PPP) [Relative time] 1.7 {INR} Normal [facility] ([place]) Comment on above: Result Comment: [employer] (CHEST, 1992, 102:312S-25S) recommended therapeutic range for oral anticoagulant therapy is: LOW RISK: Prophylaxis of venous thrombosis INR: 2.0-3.0 Treatment of pulmonary embolism 2.0-3.0 Prevention of systemic embolism 2.0-3.0 HIGH RISK: Mechanical prosthetic valves 2.5-3.5 Performed By: #### P RO #### [place] [id number] PT Coag (PPP) [Time] 20.1 s High 9.0-14.8 [facility] ([place]) Comment on above: Result Comment: Effective 12/10/07, Prot marlena results may be affected by some antibiotics (i.e. Ciprofloxacin, Azithromycin, Bactrim) which may potentiate the action of oral anticoagulants, with further increases in Protime/INR. Performed By: #### P RO #### [place] [id number] PROon 12-22-2022 INR Coag (PPP) [Relative time] 1.9 {INR} Normal [facility] ([place]) Comment on above: Result Comment: [employer] (CHEST, 1992, 102:312S-25S) recommended therapeutic range for oral anticoagulant therapy is: LOW RISK: Prophylaxis of venous thrombosis INR: 2.0-3.0 Treatment of pulmonary embolism 2.0-3.0 Prevention of systemic embolism 2.0-3.0 HIGH RISK: Mechanical prosthetic valves 2.5-3.5 Performed By: #### P RO #### [address] [address] PT Coag (PPP) [Time] 22.3 s High 9.0-14.8 [facility] ([place]) Comment on above: Result Comment: Effective 12/10/07, Prot marlena results may be affected by some antibiotics (i.e. Ciprofloxacin, Azithromycin, Bactrim) which may potentiate the action of oral anticoagulants, with further increases in Protime/INR. Performed By: #### P RO #### [place] [address] PROon 12-13-2022 INR Coag (PPP) [Relative time] 1.7 {INR} Normal [facility] ([place]) Comment on above: Result Comment: [employer] (CHEST, 1992, 102:312S-25S) recommended therapeutic range for oral anticoagulant therapy is: LOW RISK: Prophylaxis of venous thrombosis INR: 2.0-3.0 Treatment of pulmonary embolism 2.0-3.0 Prevention of systemic embolism 2.0-3.0 HIGH RISK: Mechanical prosthetic valves 2.5-3.5 Performed By: #### P RO #### [address] [address] PT Coag (PPP) [Time] 20.4 s High 9.0-14.8 [facility] ([place]) Comment on above: Result Comment: Effective 12/10/07, Prot marlena results may be affected by some antibiotics (i.e. Ciprofloxacin, Azithromycin, Bactrim) which may potentiate the action of oral anticoagulants, with further increases in Protime/INR. Performed By: #### P RO #### [address] [address] PROon 11-29-2022 INR Coag (PPP) [Relative time] 2.0 {INR} Normal [facility] ([place]) Comment on above: Result Comment: [employer] (CHEST, 1992, 102:312S-25S) recommended therapeutic range for oral anticoagulant therapy is: LOW RISK: Prophylaxis of venous thrombosis INR: 2.0-3.0 Treatment of pulmonary embolism 2.0-3.0 Prevention of systemic embolism 2.0-3.0 HIGH RISK: Mechanical prosthetic valves 2.5-3.5 Performed By: #### P RO #### [address] [address] PT Coag (PPP) [Time] 24.6 s High 9.0-14.8 [facility] ([place]) Comment on above: Result Comment: Effective 12/10/07, Prot marlena results may be affected by some antibiotics (i.e. Ciprofloxacin, Azithromycin, Bactrim) which may potentiate the action of oral anticoagulants, with further increase in Protime/INR. Performed By: #### P RO #### [place] [address] PROon 11-08-2022 INR Coag (PPP) [Relative time] 2.2 {INR} Normal [facility] ([place]) Comment on above: Result Comment: [employer] (CHEST, 1992, 102:312S-25S) recommended therapeutic range for oral anticoagulant therapy is: LOW RISK: Prophylaxis of venous thrombosis INR: 2.0-3.0 Treatment of pulmonary embolism 2.0-3.0 Prevention of systemic embolism 2.0-3.0 HIGH RISK: Mechanical prosthetic valves 2.5-3.5 Performed By: #### P RO #### [address] [address] PT Coag (PPP) [Time] 25.9 s High 9.0-14.8 [facility] ([place]) Comment on above: Result Comment: Effective 12/10/07, Prot marlena results may be affected by some antibiotics (i.e. Ciprofloxacin, Azithromycin, Bactrim) which may potentiate the action of oral anticoagulants, with further increase in Protime/INR. Performed By: #### P RO #### [place] [address] [facility] 10-25-2022 INR Coag (PPP) [Relative time] 1.9 {INR} Normal [facility] ([place]) Comment on above: Result Comment: [employer] (CHEST, 1992, 102:312S-25S) recommended therapeutic range for oral anticoagulant therapy is: LOW RISK: Prophylaxis of venous thrombosis INR: 2.0-3.0 Treatment of pulmonary embolism 2.0-3.0 Prevention of systemic embolism 2.0-3.0 HIGH RISK: Mechanical prosthetic valves 2.5-3.5 Performed By: #### P RO #### [address] [address] PT Coag (PPP) [Time] 22.3 s High 9.0-14.8 [facility] ([place]) Comment on above: Result Comment: Effective 12/10/07, Prot marlena results may be affected by some antibiotics (i.e. Ciprofloxacin, Azithromycin, Bactrim) which may potentiate the action of oral anticoagulants, with further increases in Protime/INR. Performed By: #### P RO #### [address] 10-20-2022 INR Coag (PPP) [Relative time] 1.6 {INR} Normal [facility] ([place]) Comment on above: Result Comment: [employer] (CHEST, 1992, 102:312S-25S) recommended therapeutic range for oral anticoagulant therapy is: LOW RISK: Prophylaxis of venous thrombosis INR: 2.0-3.0 Treatment of pulmonary embolism 2.0-3.0 Prevention of systemic embolism 2.0-3.0 HIGH RISK: Mechanical prosthetic valves 2.5-3.5 Performed By: #### P RO #### [facility] [address] [place] [id number] PT Coag (PPP) [Time] 18.7 s High 9.0-14.8 [facility] ([place]) Comment on above: Result Comment: Effective 12/10/07, Prot marlena results may be affected by some antibiotics (i.e. Ciprofloxacin, Azithromycin, Bactrim) which may potentiate the action of oral anticoagulants, with further increases in Protime/INR. Performed By: #### P RO #### [facility] [address] [place], [place] [address] PTon 11-02-2017 INR Coag RelTime (PPP) 6.2 {INR} Critically high 0.9-1.1 [facility] Comment on above: Result Comment: CRITICAL VALUE(S) VERIFI ED AND CALLED TO AND READ BACK BYVadim DE SANTIAGO RN AT 1603 11/02/17 BY ROYAL NUNEZRecommended PT INR therapeutic range for prison andprophylactic therapy is 2.0 - 3.0. For heart valve andshunt patients the range is 2.5 - 3.5. Performed By: #### L 300.14009 ####[facility] [id number] [place], [place] [address]Jp# [phone] PTS 70.6 SECONDS High 9.4-12.0 [facility] Comment on above: Performed By: #### L300.56506 ####[facility] [id number] [place], [place] [address]Zr# [phone] PROTIME, W.B.on 10-18-2017 INR Coag RelTime (Bld) 2.8 {INR} High 0.8-1.2 [facility] Comment on above: Result Comment: Recommended PT INR thera peutic range for prison andprophylactic therapy is 2.0 - 3.0. For heart valve andshunt patients the range is 2.5 - 3.5. Performed By: #### L 300.72352 ####[address] [address]FI# [phone] PT SEC, W.B. 32.4 SECONDS High 10.1-15.5 [facility] Comment on above: Performed By: #### L300.63538 ####[address] [id number]# [phone] PROTIME, W.B.on 09-30-2017 INR Coag RelTime (Bld) 1.6 {INR} High 0.8-1.2 [facility] Comment on above: Result Comment: Recommended PT INR thera peutic range for exterminator termite andprophylactic therapy is 2.0 - 3.0. For heart valve andshunt patients the range is 2.5 - 3.5. Performed By: #### L 300.49282 ####[address] [address]IJ# [phone] PT SEC, W.B. 10.3 SECONDS Normal 10.1-15.5 [facility] Comment on above: Performed By: #### L300.63697 ####[address]# [phone] PROTIME, W.B.on 07-30-2017 INR Coag RelTime (Bld) 3.0 {INR} High 0.8-1.2 [facility] Comment on above: Result Comment: Recommended PT INR thera peutic range for exterminator termite andprophylactic therapy is 2.0 - 3.0. For heart valve andshunt patients the range is 2.5 - 3.5. Performed By: #### L 300.40794 ####[address] [address]UQ# [phone] PT SEC, W.B. 33.8 SECONDS High 10.1-15.5 [facility] Comment on above: Performed By: #### L300.85893 ####[address] [address]JO# [phone] PROTIME, W.B.on 05-24-2017 INR Coag RelTime (Bld) 2.4 {INR} High 0.8-1.2 [facility] Comment on above: Result Comment: Recommended PT INR thera peutic range for prison andprophylactic therapy is 2.0 - 3.0. For heart valve andshunt patients the range is 2.5 - 3.5. Performed By: #### L 300.32870 ####[address] [address]YA# [phone] PT SEC, W.B. 28.0 SECONDS High 10.1-15.5 [facility] [place] Comment on above: Performed By: #### L300.68152 ####[place] [id number]# [phone] PROTIME, W.B.on 03-26-2017 INR Coag RelTime (Bld) 3.0 {INR} High 0.8-1.2 [facility] [place] Comment on above: Result Comment: Recommended PT INR thera peutic range for prison andprophylactic therapy is 2.0 - 3.0. For heart valve andshunt patients the range is 2.5 - 3.5. Performed By: #### L 300.86357 ####[place] [id number]# [phone] PT SEC, W.B. 34.3 SECONDS High 10.1-15.5 [facility] [place] Comment on above: Performed By: #### L300.40193 ####[place] [id number]# [phone] PROTIME, W.B.on 01-23-2017 INR Coag RelTime (Bld) 2.4 {INR} High 0.8-1.2 [facility] [place] Comment on above: Result Comment: Recommended PT INR thera peutic range for prison andprophylactic therapy is 2.0 - 3.0. For heart valve andshunt patients the range is 2.5 - 3.5. Performed By: #### L 300.92126 ####[place] [id number]# [phone] PT SEC, W.B. 27.6 SECONDS High 10.1-15.5 [facility] [place] Comment on above: Performed By: #### L300.17695 ####[address] [address]TY# [phone] PROTIME, W.B.on 01-08-2017 INR Coag RelTime (Bld) 2.9 {INR} High 0.8-1.2 [facility] [place] Comment on above: Result Comment: Recommended PT INR thera peutic range for prison andprophylactic therapy is 2.0 - 3.0. For heart valve andshunt patients the range is 2.5 - 3.5. Performed By: #### L 300.05861 ####[address] [address]QJ# [phone] PT SEC, W.B. 32.8 SECONDS High 10.1-15.5 [facility] [place] Comment on above: Performed By: #### L300.48659 ####[address] [id number]# [phone] PROTIME, W.B.on 12-18-2016 INR Coag RelTime (Bld) 2.8 {INR} High 0.8-1.2 [facility] [place] Comment on above: Result Comment: Recommended PT INR thera peutic range for exterminator termite andprophylactic therapy is 2.0 - 3.0. For heart valve andshunt patients the range is 2.5 - 3.5. Performed By: #### L 300.12555 ####[address] [address]VX# [phone] PT SEC, W.B. 32.2 SECONDS High 10.1-15.5 [facility] [place] Comment on above: Performed By: #### L300.98292 ####[address] [address]DM# [phone] Encounters Encounter Date Encounter Type Care Provider Facility Start: 03-07-2024 End: 03-07-2024 ambulatory EDGAR Osmany TOLENTINO Facility:[id number] Start: 03-01-2024 End: 03-01-2024 ambulatory EDGAR TOLENTINO Facility:[id number] Start: 02-27-2024 End: 02-27-2024 ambulatory EDGAR TOLENTINO Facility:[id number] Start: 02-21-2024 End: 02-21-2024 ambulatory EDGAR TOLENTINO Facility:[id number] Start: 02-12-2024 End: 02-12-2024 ambulatory EDGAR TOLENTINO Facility:[id number] Start: 01-15-2024 End: 01-15-2024 ambulatory EDGAR TOLENTINO Facility:[id number] Start: 12-18-2023 End: 12-18-2023 ambulatory EDGAR TOLENTINO Facility:[id number] Start: 11-19-2023 End: 11-19-2023 ambulatory EDGAR TOLENTINO Facility:[id number] Start: 11-02-2023 End: 11-02-2023 ambulatory EDGAR TOLENTINO Facility:[id number] Start: 05-31-[address] EDGAR TOLENTINO MD Fa cility:A Start: 11-02-2017 End: 11-24-2017 Ambulatory Edgar Tolentino Facility:[facility] Start: 09-30-2017 End: 10-25-2017 Ambulatory Edgar Tolentino Facility:[facility] Start: 07-30-2017 End: 08-25-2017 Ambulatory Edgar Tolentino Facility:[facility] Start: 05-24-2017 End: 05-27-2017 Ambulatory Edgar Tolentino Facility:[facility] Start: 03-26-2017 End: 03-27-2017 Ambulatory Edgar Tolentino Facility:[facility] Start: 01-08-2017 End: 01-25-2017 Ambulatory Edgar Tolentino Facility:[facility] Start: 12-18-2016 End: 12-25-2016 Ambulatory Edgar Tolentino Facility:[facility] Payers Date Payer Category Payer Private Health Insurance [id number] 1940 [facility] [id number] Summary Purpose Family History No Family History Records FoundNo Family History Records FoundNo Family History Records Found Advance Directives No Advanced Directives Records FoundNo Advanced Directives Records FoundNo Advanced Directives Records Found Additional Source Comments INFORMATION SOURCE (unrecogn ized section and content) DATE CREATED AUTHOR 11/27/2017 [facility] [place] DATE CREATED AUTHOR AUTHOR'S ORGANIZ ATION 10/06/2023 [facility] ([place]) DATE CREATED AUTHOR AUTHOR'S ORGANIZ ATION 03/10/2024 [facility] FOR RECORDS PERTAINING TO PATIENTS WHO ARE OR HAVE BEEN ENROLLED IN A CHEMICAL DEPENDENCY/SUBSTANCEABUSE PROGRAM, SOME INFORMATION MAY BE OMITTED. This clinical summary was aggregated from multiple sources. Caution should be exercised in using it in the provision of clinical care. This summary normalizes information from multiple sources, and as a consequence, information in this document may materially change the coding, format and clinical context of patient data. In addition, data may be omitted in some cases. CLINICAL DECISIONS SHOULD BE BASED ON THE PRIMARY CLINICAL RECORDS. [facility]. provides no warranty or guarantee of the accuracy or completeness of information in this document.
--- NOTE | 2024-03-18 06:57 | PCM.PRE.AN2 ---
ASA Classification* ASA Classification ASA Classification: 2 Assessment & Plan Anesthesia* Anesthesia Assessment Anesthesia Assessment: Discussed sedation and/or anesthesia options, risks, benefits, and alternatives with patient/parents/legal guardian/POA. Questions invited. The patient/parents/legal guardian/POA seems to understand and agrees to proceed with anesthesia plan. Reviewed the physical assessment, medical history, allergy history and patient home medications list prior to surgery/procedure/anesthetic and documented any changes. Performed airway and anesthesia risk assessments. Anesthesia Type Anesthesia Type: MAC (see written pre anestesia record for full assessment) Anesthesia Focused Assessment* Temperature: 97.8 F Pulse Rate: 97 Blood Pressure: 161/73 Respiratory Rate: 17 Pulse Ox: 97 Airway Assessment Mouth opens: >3 cm Mallampati Score: II Focused Labs Anesthesia Preop lab: CBC WBC 6.2 K/mm3 (4.4-11.0) 09/11/22 14:23 RBC 4.29 M/mm3 (4.2-5.4) 09/11/22 14:23 Hgb 11.9 g/dL (12.0-15.0) L 09/11/22 14:23 Hct 39.2 % (37-47) 09/11/22 14:23 Plt Count 277 K/mm3 (150-450) 09/11/22 14:23 CHEMISTRY Potassium 4.5 mmol/L (3.5-5.1) 04/30/23 13:57 Sodium 140 mmol/L (136-145) 04/30/23 13:57 BUN 24 mg/dL (7-18) H 04/30/23 13:57 Creatinine 1.06 mg/dL (0.55-1.02) H 04/30/23 13:57 Glucose 100 mg/dL (74-106) 04/30/23 13:57 POC Glucose 102 mg/dL (70-110) 05/01/18 11:14 TSH 0.29 uIU/mL (0.358-3.74) L 08/06/23 10:29 COAG PT 19.7 SECONDS (11.7-14.9) H 03/29/18 08:10 Pre-Assessment Diagnosis/Proposed Procedure Planned Operative Procedure(s): (R) Right open Carpal Tunnel Release Anesthesia History 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 When Was Last Pacemaker Check QUESTION #4 FULL TEXT: You/Your Family Experience fever (hyperthermia) with Anesthesia Last Oral Intake Last Oral intake: Last Oral Intake NPO since 04:30 03/18/24 06:30 Meds taken in AM with sips of Yes 03/18/24 06:30 water? Meds patient instructed to losartan 03/18/24 06:30 take am of surgery PONV PONV - automotive mechanical engineer: PONV - automotive mechanical engineer Female Yes 03/11/24 13:01 HX of Motion Sickness No 03/11/24 13:01 HX of N/V After Surgery No 03/11/24 13:01 Non-Smoker Yes 03/11/24 13:01 Duration of Surgery greater No 03/11/24 13:01 than 60 minutes Number of Risk Factors 2 03/11/24 13:01 PONV Score Moderate Risk 03/11/24 13:01 Height & Weight Height & Weight: Anesthesia: Height & Weight Height 5 ft 1 in 03/18/24 06:30 Weight: 71 kg 03/18/24 06:30 Body Mass Index (BMI) 29.5 03/18/24 06:30 Respiratory Assessment Respiratory Assessment - automotive mechanical engineer: Respiratory Tract Infection Hx - automotive mechanical engineer Hx Respiratory Tract Infection No 03/11/24 13:01 STOP Sleep Apnea STOP Sleep Apnea - automotive mechanical engineer: STOP Sleep Apnea - automotive mechanical engineer Hx Hypertension Yes: CONTROLLED WITH MED 03/11/24 13:01 Hx Sleep Apnea No 03/11/24 13:01 CPAP No 03/11/24 13:01 BIPAP Do you snore loudly (louder No 03/11/24 13:01 than talking or can be heard Do you often feel tired/ No 03/11/24 13:01 fatigued/ sleepy during daytime? Has anyone observed you stop No 03/11/24 13:01 breathing during sleep? STOP Results Negative 03/11/24 13:01 QUESTION #5 FULL TEXT : Do you snore loudly (louder than talking or can be heard through closed doors)? 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 Specify any problems Hx of Preganancy in last 3 N/A 03/11/24 13:01 Months Nurse Filling Out Transfusion NBUCHER 03/11/24 13:01 & Questions: Date: 03/11/24 03/11/24 13:01 Time: 13:02 03/11/24 13:01 Patient unable to answer at this time (ie. confused, unrespo /Reproduction History /Reproductive History - automotive mechanical engineer: /Reproductive Hx- automotive mechanical engineer Hx Now Gestational Age (in weeks): EDC: Hx Hx Para Hx Section SAB No 03/11/24 13:01 Active Medications Active Medications: Current Medications Generic Name Dose Route Start Last Admin Trade Name Freq PRN Reason Stop Dose Admin Cefazolin Sodium 2 gm/ N/A 20 mls @ 400 mls/hr 03/18/24 07:30 IV 03/18/24 07:32 PREOP ONE PFSH Medical History Wears glasses Wears dentures Cancer Post-menopausal Arthritis Anemia Back pain History of IBS History of diverticulitis Gastric reflux Former smoker Shortness of breath on exertion Leg cramps Pulmonary embolism DVT (deep venous thrombosis) History of stress test Anxiety HTN (hypertension) Heme positive stool Acute blood loss anemia IBS (irritable bowel syndrome) DVT (deep venous thrombosis) Hypothyroidism GERD (gastroesophageal reflux disease) SOB (shortness of breath) Iron deficiency anemia Home Medications ?Medication ?Instructions ?Recorded ?Last Taken ?Type acetaminophen 500 mg capsule 500 mg PO PRN PRN Pain 03/28/18 03/17/24 History levothyroxine 75 mcg tablet 88 mcg PO DAILY THYROID 03/28/18 03/17/24 History lorazepam 1 mg tablet 1 mg PO QHS ANXIETY 03/28/18 03/17/24 History warfarin 2 mg tablet 2 mg PO DAILY BLOOD THINNER 04/09/18 03/10/24 History lansoprazole 30 mg capsule,delayed 30 mg PO DAILY reflux 10/15/19 03/17/24 History release losartan 50 mg tablet 100 mg PO DAILY 10/13/21 03/18/24 History dicyclomine 20 mg tablet 20 mg PO BID PRN abdominal pain 12/04/22 03/17/24 History rosuvastatin 5 mg tablet 5 mg PO DAILY 03/11/24 03/17/24 History Allergy/AdvReac Type Severity Reaction Status Date / Time alendronate sodium (From AdvReac Severe Other Verified 03/18/24 06:28 Fosamax) rabeprazole (From AcipHex) AdvReac Rash Verified 03/18/24 06:28 Family History Father Emphysema lung Heart disease Mother Hypertension CVA (cerebral vascular accident) Sister Lung cancer Pancreatic cancer Diabetes Brother Pancreatic cancer Hypertension Diabetes Surgical History History of carpal tunnel surgery of left wrist Hx of colonoscopy menicus right knee repair Bilateral cataracts S/P colectomy History of surgical removal of ganglion cyst S/P hysterectomy Social History Smoking Status: Former smoker second hand exposure: No alcohol intake: never substance use type: does not use arline/anabaptism: [employer] seatbelt use: always do you feel safe at home: Yes Review of Systems (Anesthesia) ROS Narrative System reviewed and no additional complaints, except as documented.
--- NOTE | 2024-03-18 07:06 | HP.PCM_ITS ---
History and Physical Date of Admission: 03/18/24 [facility] [address] [place] [address] OFFICE VISIT Date of Service: 02/20/24 MR#: [id number] Acct: [id number] Name: EVELYN BARBER Rep #: [id number] : 1940 Provider: Dr. Evangelista Ma DO Age/Sex: 83/F Location: [facility] [place].[facility] Status: Signed Intake Vital Signs 04/12/2313:49 Height 5 ft 1 in Intake Visit Reasons: RIGHT WRIST Chief Complaint: right wrist Is patient in pain?: No Allergies alendronate sodium (From Fosamax) Adverse Reaction (Severe, Verified 02/20/24 14:54) Otherrabeprazole (From AcipHex) Adverse Reaction (Verified 02/20/24 14:54) Rash Medications ?Medication ?Instructions ?Recorded ?Confirmed ?Type acetaminophen 500 mg capsule 500 mg PO PRN PRN Pain 03/28/18 04/12/23 History levothyroxine 75 mcg tablet 88 mcg PO DAILY THYROID 03/28/18 04/12/23 History lorazepam 1 mg tablet 1 mg PO QHS ANXIETY 03/28/18 04/12/23 History warfarin 2 mg tablet 2 mg PO SUTUWETHSA BLOOD THINNER 04/09/18 04/12/23 History lansoprazole 30 mg capsule,delayed 30 mg PO QHS reflux 10/15/19 04/12/23 History release losartan 50 mg tablet 100 mg PO DAILY 10/13/21 04/12/23 History dicyclomine 20 mg tablet 20 mg PO BID 12/04/22 04/12/23 History Have you fallen in the past year?: No PFSH Medical History Wears glasses Wears dentures Cancer Post-menopausal Arthritis Anemia Back pain History of IBS History of diverticulitis Gastric reflux Former smoker Shortness of breath on exertion Leg cramps Pulmonary embolism DVT (deep venous thrombosis) History of stress test Anxiety HTN (hypertension) Heme positive stool Acute blood loss anemia IBS (irritable bowel syndrome) DVT (deep venous thrombosis) Hypothyroidism GERD (gastroesophageal reflux disease) SOB (shortness of breath) Iron deficiency anemia Surgical History History of carpal tunnel surgery of left wrist Hx of colonoscopy menicus right knee repair Bilateral cataracts S/P colectomy History of surgical removal of ganglion cyst S/P hysterectomy Family History Father Emphysema lung Heart diseaseMother Hypertension CVA (cerebral vascular accident)Sister Lung cancer Pancreatic cancer DiabetesBrother Pancreatic cancer Hypertension Diabetes Social History Smoking Status: Former smoker second hand exposure: No alcohol intake: never substance use type: does not use arline/anabaptist: [employer] seatbelt use: always do you feel safe at home: Yes HPI RIGHT WRIST Chief Complaint: right wrist pain Details: This documentation accurately reflects the service provided and the decisions made by me, Dr. Evangelista Ma, DO 02/20/24 0984. Part of today?s visit was documented by Sussy ALMEIDA, acting as scribe. EVELYN BARBER is a 83 year old F here today for right wrist pain. Pt, advises her right wrist pain and burning has worsened over the last year. She states she also drops things frequently and the first 3 fingers are numb. She would like to discuss surgery. Ortho Exam General General: Yes no acute distress Neurologic: Yes alert and Yes oriented x3 Psychologic: Yes reasonable and appropriate Right Wrist/Hand Right Wrist: Yes Thenar Atrophy WRIST: small cyst over volar wrist 78 extension 40 flexion 80 supination full pronation stiffness of index finger flexion Provocative maneuvers such as Tinel's and Phalen's and Durkan's are difficult to assess as she has symptoms at baseline Head: Normocephalic Atraumatic Chest: symmetrical rise, non-labored breathing, no audible wheeze Abdomen: no guarding, non-rigid Supplemental Info 09/29/2022 open carpal tunnel release left: Dr. Ma 08/07/2022 EMG bilateral upper extremities: 1 severe right sided carpal tunnel right median motor study recording the APB was absent right median sensory response showed reduced amplitude prolonged latency and markedly reduced conduction velocity. 2 left moderate least severe carpal tunnel left median sensory response absent. Coding Level of Care Code Off vis,est,level 3 Diagnoses Carpal tunnel syndrome, right G56.01 Assessment and Plan Assessment and Plan (1) Carpal tunnel syndrome, right: Status: Acute Plan Spoke with patient that regarding her EMG that she had over a year ago that it showed advanced carpal tunnel with permanent changes. Her thenar atrophy is permanent and I explained I can perform a carpal tunnel release to take the pressure off the nerve however I cannot guarantee considering the severity of her disease that she will get any benefit from it. Of note her left wrist was also severe but she did get benefit from the surgery I explained her right wrist is worse patient would like to proceed with a right open carpal tunnel release. She will need clearance from her PCP to hold her Warfrin for 1 week and would need her INR less than 1.5 once again reviewed wrist benefits and alternatives of surgery including risk of bleed infection nerve artery tissue damage need for surgery continued pain incisional hypersensitivity and pillar pain. Clinical Quality Measures Falls Risk Screening/Assistive Devices Have you fallen in the past year?: No 02/20/24 1519 <Electronically signed by Evangelista Ma DO> Date Evangelista Ma DO I have examined the patient and the H&P has been reviewed. There are no clinical changes since date of exam.
[2024-03-18] MEDS: Cefazolin 2 GM in Syringe IV (07:29)
[2024-03-18] MEDS: Bupiv/Epi 0.25% 30 ML Vial (07:55)
--- NOTE | 2024-03-18 08:03 | OP.PCM_ITS ---
Operative Report Date of Procedure: 03/18/24 Preoperative diagnosis; right carpal tunnel syndrome Postoperative diagnosis; same Procedure: Right open carpal tunnel release Anesthesia: Local with MAC Tourniquet time; 10 minutes 250 mm Hg Complications: None Indication for procedure; This is a 83-year-old female with long-standing s ymptoms consistent with carpal tunnel syndrome the patient did have electrodiagnostic evidence of this and has failed conservative treatment. Risks benefits and alternatives were reviewed including risks of bleeding infection nerve artery tissue damage need for further surgery and continued pain and symptoms, hypersensitivity to scar and Pillar pain. Procedure; The patient was met in the preoperative holding area the operative extremity was identified by both patient and physician and was marked the patient was met by anesthesia and brought back to the operating room and transferred to the operating table in the supine position. Anesthesia was started. A well-padded tourniquet was placed on the operative upper extremity. The patient was prepped and draped in the usual sterile fashion. A timeout was called to ensure the proper patient procedure and extremity were being contemplated. 0.5 percent lidocaine with epinephrine was injected into the incisional area. An Esmarch was used to exsanguinate the extremity. The tourniquet was inflated to 250 mmHg. A midline incision was made with a 15 blade scalpel between the thenar and hypothenar eminence. This was carried down through the skin and subcutaneous tissue. Art retractors were then used, a deep blade scalpel was used to make a deep incision in the palmar aponeurosis. The art retractors were then placed deep to this and the transverse carpal ligament was identified a perforation was made with a scalpel and a Littler scissors were used to complete the release of the transverse carpal ligament distally under direct visualization with the tips facing ulnarly until the perivascular fat was reached. Then turning our attention proximally using a tension slide technique the proximal extent of the transverse carpal ligament was released . There was noted to be hourglass configuration to the median nerve and hypertrophy of the transverse carpal ligament without other findings. The wound was thoroughly irrigated and was closed with 4-0 nylon vertical mattress stitches. Dressing was applied in the form of xeroform 4 x 4, web roll and an mitch wrap. Tourniquet was let down there is no intraoperative complications patient tolerated the procedure well and was transferred to the PACU. All counts were correct.
--- NOTE | 2024-03-18 08:04 | DCINST_ITS ---
Discharge Instructions Diet Discharge Diet: No restrictions Dressing / Incision Call your doctor if you observe: Shortness of breath and Chest pain Additional Dressing/Incision Instructions:: Ice and elevate operative extremity next 72 hours. Keep dressing on clean and dry for 48 hours then may remove and allow warm soapy water to rinse over incision but do not submerge until sutures are out. Then apply bandaid over incision and change daily. encourage finger range of motion. Not lift more than 1/2 pound. Minimize narcotic use only as needed and directed, may use OTC NSAID and Tylenol to supplement/substitute for pain control. Follow Up Care Please Follow Up With: Evangelista Ma DO When: 2 weeks Test Results: Test results from this visit will be discussed in further detail at your follow- up appointment, if applicable. Discharge Plan Admission Primary Reason for Your Visit: Right carpal tunnel release Attending Provider: Evangelista Ma Primary Care Provider: Edgar Austin Instructions Print Language: Danish Discharge Orders/Prescriptions Prescriptions: New oxycodone 5 mg tablet 2.5 - 5 mg PO Q4H PRN (Reason: pain) 3 Days Qty: 7 0RF Continued losartan 50 mg tablet 100 mg PO DAILY levothyroxine 75 MCG tablet 88 mcg PO DAILY lorazepam 1 MG tablet 1 mg PO QHS Patient Comments: TK 1 T PO BID PRN acetaminophen 500 MG capsule 500 mg PO PRN PRN (Reason: Pain) warfarin 2 MG tablet 2 mg PO DAILY Patient Comments: stop 5 days preop lansoprazole 30 MG capsule 30 mg PO DAILY dicyclomine 20 mg tablet 20 mg PO BID PRN (Reason: abdominal pain) rosuvastatin 5 mg tablet 5 mg PO DAILY Referrals / Follow Up: Edgar Austin MD [Primary Care Provider] - Disposition Disposition (needs filled in before D/C Order can be placed): Home, Self Care
--- NOTE | 2024-03-18 08:11 | PCM.POST.ANE ---
Anesthesia: Postop Eval I Current Vital Signs Temperature: 97.2 F Pulse Rate: 82 Blood Pressure: 125/64 Respiratory Rate: 16 Pulse Ox: 97 Oxygen Delivery Method: Room Air Assessment Airway patent: Yes Spontaneous unlabored respirations: Yes Mental status: Awake and Calm nausea: No Vomiting: No Anesthesia Complication: No Fluid Hydration Crystalloid volume administer (ml): 20 Total IV fluid infused: 20 Progress Note Anesthesia document: Postop Eval 1 completed: Yes
--- NOTE | 2024-03-18 11:37 | POSTOPAN2_ITS ---
Anesthesia Postop Eval I Sum Postop Eval Completion status Anesthesia document: Postop Eval 1 completed: Yes Anesthesia Postop Eval I Summary Anesthesia Postop Eval I Summary: Anesthesia Postop Eval I: Assessment Summary Airway patent Yes 03/18/24 08:12 STATUS CONTROLLER.[email or web address] Spontaneous unlabored Yes 03/18/24 08:12 STATUS CONTROLLER.GDOTT respirations Mental status Awake,Calm 03/18/24 08:12 STATUS CONTROLLER.GDOTT nausea No 03/18/24 08:12 STATUS CONTROLLER.GDOTT Vomiting No 03/18/24 08:12 STATUS CONTROLLER.GDOTT Anesthesia Postop Eval I: Fluid Summary Crystalloid volume administer 20 03/18/24 08:12 STATUS CONTROLLER.GDOTT (ml) Colloids volume administered ( ml) Blood Product volume administered (ml) Total IV fluid infused 20 03/18/24 08:12 STATUS CONTROLLER.GDOTT Anesthesia Postop Eval I: Summary Notes Anesthesia Complication No 03/18/24 08:12 STATUS CONTROLLER.GDOTT Anesthesia Complication Comment: Post-operative progress note Anesthesia: Postop Eval II Evaluation Mental status: Awake and Calm Pain Level: 1 nausea: No Vomiting: No Complications Anesthesia Complication: No
--- NOTE | 2024-03-18 11:37 | PCM.POSTANE2 ---
Anesthesia Postop Eval I Sum Postop Eval Completion status Anesthesia document: Postop Eval 1 completed: Yes Anesthesia Postop Eval I Summary Anesthesia Postop Eval I Summary: Anesthesia Postop Eval I: Assessment Summary Airway patent Yes 03/18/24 08:12 DATA ANALYST ETL DEVELOPER.GDOTT Spontaneous unlabored Yes 03/18/24 08:12 DATA ANALYST ETL DEVELOPER.GDOTT respirations Mental status Awake,Calm 03/18/24 08:12 DATA ANALYST ETL DEVELOPER.GDOTT nausea No 03/18/24 08:12 DATA ANALYST ETL DEVELOPER.GDOTT Vomiting No 03/18/24 08:12 DATA ANALYST ETL DEVELOPER.GDOTT Anesthesia Postop Eval I: Fluid Summary Crystalloid volume administer 20 03/18/24 08:12 DATA ANALYST ETL DEVELOPER.GDOTT (ml) Colloids volume administered ( ml) Blood Product volume administered (ml) Total IV fluid infused 20 03/18/24 08:12 DATA ANALYST ETL DEVELOPER.GDOTT Anesthesia Postop Eval I: Summary Notes Anesthesia Complication No 03/18/24 08:12 DATA ANALYST ETL DEVELOPER.GDOTT Anesthesia Complication Comment: Post-operative progress note Anesthesia: Postop Eval II Evaluation Mental status: Awake and Calm Pain Level: 1 nausea: No Vomiting: No Complications Anesthesia Complication: No
[2024-03-27 12:07] LABS: INR Fingerstick 1.2
== END 2024-03-18 09:05 | disposition home or self-care (01) ==
LOC: SDC 06:00 → AC 06:04
PROVIDERS: PCP Family Medicine; Referring Provider Orthopaedic Surgery; Visit Provider Orthopaedic Surgery
PROC: (CPT 64721; principal; 2024-03-18 07:15)
DX: G56.01 Carpal tunnel syndrome, right upper limb (principal); I10 Essential (primary) hypertension; Z87.891 Personal history of nicotine dependence; K21.9 Gastro-esophageal reflux disease without esophagitis; E03.9 Hypothyroidism, unspecified; Z79.01 Long term (current) use of anticoagulants; Z79.890 Hormone replacement therapy; Z79.899 Other long term (current) drug therapy; Z86.718 Personal history of other venous thrombosis and embolism
CPT/HCPCS: 64721; 01810; 36416; 85610; A4216; J2405

== ENCOUNTER → 2024-08-04 | Outpatient (CLI) | payer MEDICARE, SELFPAY ==
[2024-08-04 18:08] LABS: Anion Gap 11 (5-15); BUN 25 mg/dL (4-19); BUN/Creat Ratio 23.4 RATIO (10-20); Calcium,Total 9.4 mg/dL (7.6-11.0); Carbon Dioxide 22.1 mmol/L (21.0-32.0); Chloride 104 mmol/L (98-108); Creatinine, Serum 1.05 mg/dL (0.70-1.20); EST Glomerular Filtration Rate 52 (>60); Glucose 97 mg/dL (70-99); Magnesium 2.1 mg/dL (1.5-2.2); Potassium 4.7 mmol/L (3.3-5.1); Sodium Level 137 mmol/L (133-145)
[2024-08-04 19:33] LABS: Erythrocyte Sedimentation Rate 9 mm/hr (0-30)
== END | disposition home or self-care (01) ==
LOC: MFPLAB 15:46
PROVIDERS: PCP Family Medicine; Visit Provider Family Medicine
DX: M79.606 Pain in leg, unspecified (principal)
CPT/HCPCS: 36415; 80048; 83735; 85652

== ENCOUNTER → 2024-10-29 | Outpatient (CLI) | payer MEDICARE, SELFPAY ==
--- NOTE | 2024-10-29 13:38 | RAD_ITS ---
PROCEDURE: HIPS B/L MIN 2 VIEWS W/ PELVIS 10/29/2024 REASON FOR EXAM: HIP PAIN TECHNIQUE: Frontal view of the pelvis and frontal and lateral views of both hips were obtained. COMPARISON: None. FINDINGS: The bony pelvis is intact. There is mild degenerative disc disease L3-4 through L5-S1. There is mild degenerative spurring of both SI joints. Pelvic soft tissues are unremarkable. Two views of the right hip show no evidence of fracture or dislocation. There is mild arthritis with asymmetric joint space narrowing and marginal osteophytes. The periarticular soft tissues are unremarkable. Two views of the left hip show no evidence of fracture or dislocation. There is mild arthritis with asymmetric joint space narrowing and marginal osteophytes. The periarticular soft tissues are unremarkable. RAD/Hips B/L min 2 views w/ Pelvis IMPRESSION: 1. Mild arthritis of both hips. 2. Other findings as noted. Reading Location: [id number]
== END | disposition home or self-care (01) ==
LOC: MTRAD 13:37
PROVIDERS: PCP Family Medicine; Referring Provider Family Medicine; Visit Provider Family Medicine
DX: M25.551 Pain in right hip (principal); M25.552 Pain in left hip
CPT/HCPCS: 73521

== ENCOUNTER → 2025-02-25 | Outpatient (CLI) | payer MEDICARE, SELFPAY ==
--- NOTE | 2025-02-25 14:32 | RAD_ITS ---
PROCEDURE: SHOULDER MIN 2 VIEWS 02/25/2025 REASON FOR EXAM: PAIN TECHNIQUE: Procedure Code: RADSH Modality: DX Procedure: SHOULDER MIN 2 VIEWS Laterality: Right COMPARISON: None FINDINGS: Right shoulder: There is no evidence of fracture or dislocation. There is severe arthritis of the glenohumeral joint. The acromioclavicular joint is unremarkable. The periarticular soft tissues are normal. RAD/Shoulder min 2 Views IMPRESSION: Severe arthritis of the glenohumeral joint. Reading Location: [place] [id number]
[2025-02-25 18:17] LABS: AST(SGOT) 22 U/L (<=31); Alanine Aminotransfer ALT/SGPT 16 U/L (<=34); Albumin, Serum 4.3 g/dL (3.4-4.8); Alkaline Phosphatase 80 U/L (35-104); Anion Gap 12 (5-15); BUN 27 mg/dL (4-19); BUN/Creat Ratio 22.6 RATIO (10-20); Calcium,Total 9.4 mg/dL (7.6-11.0); Carbon Dioxide 21.1 mmol/L (21.0-32.0); Chloride 106 mmol/L (98-108); Cholesterol 232 mg/dL (<=200); Globulin 3.2 g/dL (2.2-4.2); Glucose 103 mg/dL (70-99); Low Density Lipoprotein Calc. 131 mg/dL; Potassium 4.8 mmol/L (3.3-5.1); Triglycerides 304 mg/dL; Very Low Density Lipoprotein 61 mg/dL (5-40); cholesterol:hdl ratio screen 5.80
[2025-02-25 18:54] LABS: Prothrombin Time (Protime)PT. 30.2 SECONDS (11.7-14.9)
== END | disposition home or self-care (01) ==
LOC: MTLAB 14:30
PROVIDERS: PCP Family Medicine; Referring Provider Family Medicine; Visit Provider Family Medicine
DX: E78.5 Hyperlipidemia, unspecified (principal); I48.91 Unspecified atrial fibrillation; I82.409 Acute embolism and thrombosis of unspecified deep veins of unspecified lower extremity; M25.511 Pain in right shoulder
CPT/HCPCS: 36415; 73030; 80053; 80061; 85610